=== PATIENT | male | born 1965 | race African-American/Black ===

== ENCOUNTER 2018-01-09 18:49 | Inpatient (IN) | payer OTHER ==
[2018-01-09 19:09] VITALS: BMI 29.7
[2018-01-09] MEDS ORDERED: MELATONIN 5 MG TABLETS PO PRN (22:00)
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
[2018-01-09] MEDS ORDERED: chlordiazePOXIDE HCL 25 MG CAPSULE PO PRN (23:15)
[2018-01-09] MEDS ORDERED: ACETAMINOPHEN 325 MG TABLET (FP) PO PRN (23:15)
[2018-01-09] MEDS ORDERED: LOPERAMIDE HCL 2 MG CAPSULE PO PRN (23:15)
[2018-01-09] MEDS ORDERED: MAGNESIUM HYDROX 2400MG/30ML ORAL SUSPENSION 30 ML CUP PO PRN (23:15)
[2018-01-09] MEDS ORDERED: MENTHOL/PHENOL 1 EACH UD MM PRN (23:15)
[2018-01-09] MEDS ORDERED: IBUPROFEN 400 MG TABLET (FP) PO PRN (23:15)
[2018-01-09] MEDS ORDERED: MAGNESIUM CITRATE 300 ML BOTTLE PO PRN (23:15)
[2018-01-09] MEDS ORDERED: guaiFENesin/D-METHORPHAN HB 10 ML UNIT-DOSE CUPS PO PRN (23:15)
[2018-01-09] MEDS ORDERED: MAG HYDROX/AL HYDROX/SIMETH 30 ML UNIT-DOSE CUP PO PRN (23:15)
[2018-01-09] MEDS ORDERED: P-EPHED 60MG/TRIPROLIDI 2.5MG TABLET PO PRN (23:15)
[2018-01-10] MEDS: chlordiazePOXIDE HCL 25 MG CAPSULE PO SCH ×4 (00:42→17:35)
[2018-01-10 00:48] LABS: URINE APPEARANCE CLEAR; URINE BILIRUBIN NEGATIVE (<2.0 mg/dL); URINE COLOR LTYELLOW; URINE GLUCOSE (UA) NEGATIVE (NEGATIVE); URINE KETONE NEGATIVE (NEGATIVE); URINE LEUK ESTERASE NEGATIVE (NEGATIVE); URINE NITRITE NEGATIVE (NEGATIVE); URINE PROTEIN 1+ (NEGATIVE); URINE UROBILINOGEN NEGATIVE mg/dL (0.2-1.0)
[2018-01-10 00:50] LABS: EPI CELLS RARE /HPF (FEW); URINE MUCUS RARE
--- NOTE | 2018-01-10 07:40 | CONSULT ---
[facility] Psychiatric Consult - Data Date of interview: 01/10/18 Admission source: [facility] Identifying data: This is a 52 years old male, single, domiciled, unemployed, on PA, with no psychiatric hospitalization history, history of Alcohol, Cannabis , Cocaine dependednce, reporting Alcohol withdrawal symptoms and seeking detox. Substance Abuse History: - Smoking Cessation. Smoking history: Former smoker. Have you smoked in the past 12 months: No. Aproximately how many cigarettes per day: 1. Cigars Per Day: 0. Hx Chewing Tobacco Use: No. Initiated information on smoking cessation: No. - Substances Abused. Alcohol. Route : Oral. Frequency: Daily. Amount used: LIQUOR- 2 PINTS, BEER- 2 SIX PACK. Age of first use: 18. Date of Last Use: 01/09/18 Medical History: Syncope history, PPD+ history Psychiatric History: Oatient reports history of depression, as oper computer has been on: Trazodone 50mg po qhs. Zoloft 50mg poqd. Patient refusing allen restart medications, rteports was not taking them prior to admission. Denies suicidal, homicidal history. Physical/Sexual Abuse/Trauma History: Denies Additional Comment: Observation. Detox unit care protocol Mental Status Exam - Mental Status Exam Alert and Oriented to: Place, Person Cognitive Function: Fair Patient Appearance: Well Groomed Mood: Suspicious, Anxious Affect: Mood Congruent Patient Behavior: Guarded Speech Pattern: Appropriate Voice Loudness: Mildly Soft/Quiet Thought Process: Goal Oriented Thought Disorder: Being Controlled Hallucinations: Denies Suicidal Ideation: Denies Homicidal Ideation: Denies Insight/Judgement: Fair Sleep: Difficulty falling asleep Appetite: Weight gain Muscle strength/Tone: Normal Gait/Station: Normal Additional Comments: Observation. Detox unit care protocol Psychiatric Findings - Problem List ([place] 1, 2,3) (1) Alcohol intoxication Current Visit: Yes Status: Acute Qualifiers: Complication of substance-induced condition: uncomplicated Qualified Code(s ): F10.920 - Alcohol use, unspecified with intoxication, uncomplicated (2) Alcohol dependence in controlled environment Current Visit: No Status: Acute (3) Alcohol dependence with uncomplicated withdrawal Current Visit: No Status: Acute (4) Cannabis dependence Current Visit: No Status: Acute (5) Cocaine dependence Current Visit: No Status: Acute Qualifiers: Substance use status: uncomplicated Qualified Code(s): F14.20 - Cocaine dependence, uncomplicated (6) Substance induced mood disorder Current Visit: No Status: Acute (7) Syncope Current Visit: No Status: Acute (8) Alcohol dependence Current Visit: No Status: Chronic Qualifiers: Substance use status: uncomplicated Qualified Code(s): F10.20 - Alcohol dependence, uncomplicated (9) History of positive PPD Current Visit: No Status: Chronic (10) Insomnia Current Visit: No Status: Chronic Qualifiers: Insomnia type: unspecified Qualified Code(s): G47.00 - Insomnia, unspecified - Initial Treatment Plan Initial Treatment Plan: Observation. Detox unit care protocol
[2018-01-10] MEDS ORDERED: PRENATAL VITAMINS W/ FOLIC ACID TABLET (FP) PO SCH (10:00)
--- NOTE | 2018-01-10 10:08 | PN ---
S CIWA - CIWA Score Nausea/Vomitin-Mild Nausea/No Vomiting Muscle Tremors: 3 Anxiety: 2 Agitation: 3 Paroxysmal Sweats: 1-Minimal Palms Moist Orientation: 1-Uncertain about Date Tacttile Disturbances: 1-Very Mild Itch/Numbness Auditory Disturbances: 0-None Visual Disturbances: 0-None Headache: 1-Very Mild CIWA-Ar Total Score: 13 BHS Progress Note (SOAP) Subjective: sweat tremor diarrhea trouble sleep at night anxiety restlessness Objective: 01/10/18 10:09 Vital Signs Temperature 97.9 F 01/10/18 09:20 Pulse Rate 96 H 01/10/18 09:20 Respiratory Rate 18 01/10/18 09:20 Blood Pressure 119/79 01/10/18 09:20 O2 Sat by Pulse Oximetry (%) Laboratory Last Values Urine Color Ltyellow 01/09/18 23:26 Urine Appearance Clear 01/09/18 23:26 Urine pH 5.0 (5.0-8.0) 01/09/18 23:26 Ur Specific [place] 1.017 (1.010-1.035) 01/09/18 23:26 Urine Protein 1+ (NEGATIVE) H 01/09/18 23:26 Urine Glucose (UA) Negative (NEGATIVE) 01/09/18 23:26 Urine Ketones Negative (NEGATIVE) 01/09/18 23:26 Urine Blood Negative (NEGATIVE) 01/09/18 23:26 Urine Nitrite Negative (NEGATIVE) 01/09/18 23:26 Urine Bilirubin Negative (<2.0 mg/dL) 01/09/18 23:26 Urine Urobilinogen Negative mg/dL (0.2-1.0) 01/09/18 23:26 Ur Leukocyte Esterase Negative (NEGATIVE) 01/09/18 23:26 Urine WBC (Auto) <1 /hpf (3-5) 01/09/18 23:26 Urine RBC (Auto) 2 /hpf (0-3) 01/09/18 23:26 Ur Epithelial Cells Rare /HPF (FEW) 01/09/18 23:26 Urine Mucus Rare 01/09/18 23:26 lab noted Assessment: 01/10/18 10:10 withdrawal sx diarrhea offer immodium Plan: continue detox
[2018-01-10 10:33] LABS: HEMATOCRIT 40.8 % (35.4-49); HEMOGLOBIN 13.2 GM/dL (11.7-16.9); MCH 32.6 pg (25.7-33.7); MCHC 32.4 g/dl (32.0-35.9); MEAN CELL VOLUME 100.6 fl (80-96); MEAN PLT VOLUME 9.3 fl (7.5-11.1); PLATELET COUNT 190 K/MM3 (134-434); RBC 4.06 M/mm3 (4.00-5.60); RDW 12.3 % (11.9-15.9); WHITE BLOOD COUNT 4.5 K/mm3 (4.0-10.0)
[2018-01-10 10:41] LABS: ALBUMIN 3.7 g/dl (3.4-5.0); ALK PHOS 52 U/L (45-117); ANION GAP 10 MMOL/L (8-16); BILIRUBIN,TOTAL 0.5 mg/dL (0.2-1); BLOOD UREA NITROGEN 16 mg/dL (7-18); CALCIUM 8.6 mg/dL (8.5-10.1); CHLORIDE 104 mmol/L (98-107); CO2 25 mmol/L (21-32); CREATININE 1.1 mg/dL (0.55-1.3); GLUCOSE,RANDOM 114 mg/dL (74-106); POTASSIUM 3.8 mmol/L (3.5-5.1); SGOT/AST 31 U/L (15-37); SGPT/ALT 28 U/L (13-61); SODIUM 138 mmol/L (136-145); TOT PROT 7.1 g/dl (6.4-8.2)
[2018-01-10 13:02] VITALS: BP 110/66; TEMP 98.2
[2018-01-10 15:09] VITALS: PULSE 81
--- NOTE | 2018-01-10 16:47 | DS ---
[facility] Detox Discharge Summary Admission Date: 01/09/18 Discharge Date: 01/10/18 - History Present History: Alcohol Dependence Additional Comments: C/o alcohol withdrawal symptoms. Pertinent Past History: Alcohol use disorder since age 18. - Physical Exam Results Vital Signs: Vital Signs Temperature 98.2 F 01/10/18 13:02 Pulse Rate 81 01/10/18 15:00 Respiratory Rate 18 01/10/18 13:02 Blood Pressure 110/66 01/10/18 13:02 O2 Sat by Pulse Oximetry (%) Pertinent Admission Physical Exam Findings: Admitted for alcohol detox. Presented w/ alcohol intoxication and withdrawal symptoms. Lab Results WBC 4.5 K/mm3 (4.0-10.0) 01/10/18 07:30 RBC 4.06 M/mm3 (4.00-5.60) 01/10/18 07:30 Hgb 13.2 GM/dL (11.7-16.9) 01/10/18 07:30 Hct 40.8 % (35.4-49) D 01/10/18 07:30 MCV 100.6 fl (80-96) H 01/10/18 07:30 MCHC 32.4 g/dl (32.0-35.9) 01/10/18 07:30 RDW 12.3 % (11.9-15.9) D 01/10/18 07:30 Plt Count 190 K/MM3 (134-434) D 01/10/18 07:30 Sodium 138 mmol/L (136-145) 01/10/18 07:30 Potassium 3.8 mmol/L (3.5-5.1) 01/10/18 07:30 Chloride 104 mmol/L (98-107) 01/10/18 07:30 Carbon Dioxide 25 mmol/L (21-32) 01/10/18 07:30 Anion Gap 10 MMOL/L (8-16) 01/10/18 07:30 BUN 16 mg/dL (7-18) 01/10/18 07:30 Creatinine 1.1 mg/dL (0.55-1.3) 01/10/18 07:30 Random Glucose 114 mg/dL (74-106) H 01/10/18 07:30 Calcium 8.6 mg/dL (8.5-10.1) 01/10/18 07:30 Labs reviewed. - Treatment Hospital Course: Detox Protocol Followed (Patient did not complete detox. States "I have to go". States 'I'm going to a group home'.) - Medication Discharge Medications: Ambulatory Orders Sertraline HCl [Zoloft -] 50 mg PO DAILY #30 tablet 10/21/14 traZODone HCL [Desyrel -] 50 mg PO HS #30 tablet 10/21/14 - AMA Did Patient Leave Against Medical Advice: Yes (Patient left despite encouragement to stay)
[2018-01-10] MEDS ORDERED: THIAMINE HCL 100 MG TABLET (FP) PO SCH (22:00)
[2018-01-10] MEDS ORDERED: chlordiazePOXIDE HCL 25 MG CAPSULE PO SCH (23:00)
[2018-01-11] MEDS ORDERED: chlordiazePOXIDE 5 MG CAPSULE PO SCH (23:00)
[2018-01-12] MEDS ORDERED: chlordiazePOXIDE HCL 10 MG CAPSULE PO SCH (23:00)
== END 2018-01-10 17:30 | disposition left against medical advice (07) | DRG 770 ==
LOC: YASAS 18:49 → Y6N 23:32
PROVIDERS: ADMIT Neuromusculoskeletal Medicine & OMM; ATTEND Neuromusculoskeletal Medicine & OMM
PROC: HZ2ZZZZ Detoxification Services for Substance Abuse Treatment (ICD-10-PCS; principal; 2018-01-09)
DX: F10.230 Alcohol dependence with withdrawal, uncomplicated (principal); F14.20 Cocaine dependence, uncomplicated; F12.20 Cannabis dependence, uncomplicated; F19.24 Other psychoactive substance dependence with psychoactive substance-induced mood disorder; F32.9 Major depressive disorder, single episode, unspecified; G47.00 Insomnia, unspecified; F41.9 Anxiety disorder, unspecified; Z86.79 Personal history of other diseases of the circulatory system; Z85.46 Personal history of malignant neoplasm of prostate
CPT/HCPCS: 36415; 80053; 81003; 81015; 85027; 86593

== ENCOUNTER 2018-02-27 14:04 | Inpatient (IN) | payer OTHER ==
[2018-02-27 14:42] VITALS: BMI 29.5
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
[2018-02-27] MEDS ORDERED: guaiFENesin/D-METHORPHAN HB 10 ML UNIT-DOSE CUPS PO PRN (17:28)
[2018-02-27] MEDS ORDERED: MAGNESIUM HYDROX 2400MG/30ML ORAL SUSPENSION 30 ML CUP PO PRN (17:28)
[2018-02-27] MEDS ORDERED: MENTHOL/PHENOL 1 EACH UD MM PRN (17:28)
[2018-02-27] MEDS ORDERED: IBUPROFEN 400 MG TABLET (FP) PO PRN (17:28)
[2018-02-27] MEDS ORDERED: P-EPHED 60MG/TRIPROLIDI 2.5MG TABLET PO PRN (17:28)
[2018-02-27] MEDS ORDERED: MAGNESIUM CITRATE 300 ML BOTTLE PO PRN (17:28)
[2018-02-27] MEDS ORDERED: MAG HYDROX/AL HYDROX/SIMETH 30 ML UNIT-DOSE CUP PO PRN (17:28)
[2018-02-27] MEDS ORDERED: ACETAMINOPHEN 325 MG TABLET (FP) PO PRN (17:28)
[2018-02-27] MEDS ORDERED: LOPERAMIDE HCL 2 MG CAPSULE PO PRN (17:28)
[2018-02-27] MEDS: chlordiazePOXIDE HCL 25 MG CAPSULE PO PRN (20:16)
[2018-02-27] MEDS ORDERED: MELATONIN 5 MG TABLETS PO PRN (22:00)
[2018-02-27] MEDS: chlordiazePOXIDE HCL 25 MG CAPSULE PO SCH (23:02)
[2018-02-27] MEDS: THIAMINE HCL 100 MG TABLET (FP) PO SCH (23:02)
[2018-02-27] MEDS: BACITRACIN 0.9 GM PACKET TP SCH (23:02)
[2018-02-28] MEDS: chlordiazePOXIDE HCL 25 MG CAPSULE PO SCH ×4 (05:29→22:11)
[2018-02-28] MEDS: chlordiazePOXIDE HCL 25 MG CAPSULE PO PRN (07:50)
[2018-02-28 10:21] LABS: HEMATOCRIT 41.4 % (35.4-49); HEMOGLOBIN 13.3 GM/dL (11.7-16.9); MCH 33.3 pg (25.7-33.7); MCHC 32.1 g/dl (32.0-35.9); MEAN CELL VOLUME 103.7 fl (80-96); MEAN PLT VOLUME 10.1 fl (7.5-11.1); PLATELET COUNT 156 K/MM3 (134-434); RBC 3.99 M/mm3 (4.00-5.60); RDW 13.4 % (11.9-15.9); WHITE BLOOD COUNT 3.9 K/mm3 (4.0-10.0)
[2018-02-28 10:44] LABS: ALBUMIN 3.2 g/dl (3.4-5.0); ALK PHOS 51 U/L (45-117); ANION GAP 6 MMOL/L (8-16); BILIRUBIN,TOTAL 0.9 mg/dL (0.2-1); BLOOD UREA NITROGEN 10 mg/dL (7-18); CALCIUM 8.1 mg/dL (8.5-10.1); CHLORIDE 104 mmol/L (98-107); CO2 27 mmol/L (21-32); CREATININE 0.9 mg/dL (0.55-1.3); GLUCOSE,RANDOM 116 mg/dL (74-106); POTASSIUM 3.9 mmol/L (3.5-5.1); SGOT/AST 25 U/L (15-37); SGPT/ALT 32 U/L (13-61); SODIUM 137 mmol/L (136-145); TOT PROT 6.4 g/dl (6.4-8.2)
[2018-02-28] MEDS: BACITRACIN 0.9 GM PACKET TP SCH ×2 (10:47→22:28)
[2018-02-28] MEDS: PRENATAL VITAMINS W/ FOLIC ACID TABLET (FP) PO SCH (10:47)
--- NOTE | 2018-02-28 11:03 | PN ---
S CIWA - CIWA Score Nausea/Vomitin-No Nausea/No Vomiting Muscle Tremors: 3 Anxiety: 3 Agitation: 3 Paroxysmal Sweats: 3 Orientation: 0-Oriented Tacttile Disturbances: 0-None Auditory Disturbances: 0-None Visual Disturbances: 0-None Headache: 0-None Present CIWA-Ar Total Score: 12 S Progress Note (SOAP) Subjective: sweats shakes interrupted sleep i need psych for my medication and depression Objective: 02/28/18 11:03 Vital Signs Temperature 98.1 F 02/28/18 09:29 Pulse Rate 80 02/28/18 09:29 Respiratory Rate 18 02/28/18 09:29 Blood Pressure 109/66 02/28/18 09:29 O2 Sat by Pulse Oximetry (%) Laboratory Tests 02/28/18 02/28/18 02/28/18 07:00 07:00 07:00 WBC 3.9 L RBC 3.99 L Hgb 13.3 Hct 41.4 MCV 103.7 H MCH 33.3 MCHC 32.1 RDW 13.4 Plt Count 156 MPV 10.1 Sodium 137 Potassium 3.9 Chloride 104 Carbon Dioxide 27 Anion Gap 6 L BUN 10 Creatinine 0.9 Creat Clearance w eGFR > 60 Random Glucose 116 H Calcium 8.1 L Total Bilirubin 0.9 AST 25 ALT 32 Alkaline Phosphatase 51 Total Protein 6.4 Albumin 3.2 L HIV 1&2 Antibody Screen Negative HIV P24 Antigen Negative aaox3 ambulating no acute distress Assessment: 02/28/18 11:03 withdrawal sx Plan: continue detox increase fluids psych ordered
[2018-02-28] MEDS: THIAMINE HCL 100 MG TABLET (FP) PO SCH (22:11)
[2018-03-01] MEDS: chlordiazePOXIDE HCL 25 MG CAPSULE PO SCH ×3 (06:11→17:14)
[2018-03-01] MEDS: PRENATAL VITAMINS W/ FOLIC ACID TABLET (FP) PO SCH (10:45)
[2018-03-01] MEDS: BACITRACIN 0.9 GM PACKET TP SCH ×2 (10:45→22:58)
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
[2018-03-01] MEDS: hydrOXYzine PAMOATE 50 MG CAPSULE (FP) PO PRN ×2 (11:40→17:14)
--- NOTE | 2018-03-01 14:39 | PN ---
[facility] CIWA - CIWA Score Nausea/Vomitin-No Nausea/No Vomiting Muscle Tremors: None Anxiety: 3 Agitation: 2 Paroxysmal Sweats: 3 Orientation: 0-Oriented Tacttile Disturbances: 2-Mild Itch/Numbness/Burn Auditory Disturbances: 1-Very Mild Visual Disturbances: 0-None Headache: 0-None Present CIWA-Ar Total Score: 11 BHS Progress Note (SOAP) Subjective: Interrupted Sleep, Sweating, Diarrhea, Anxious. Objective: PATIENT A & O X 3. IN NO ACUTE DISTRESS. 03/01/18 14:37 Vital Signs Temperature 98.1 F 03/01/18 13:43 Pulse Rate 81 03/01/18 13:43 Respiratory Rate 18 03/01/18 13:43 Blood Pressure 110/64 03/01/18 13:43 O2 Sat by Pulse Oximetry (%) Laboratory Tests 02/28/18 02/28/18 02/28/18 07:00 07:00 07:00 WBC 3.9 L RBC 3.99 L Hgb 13.3 Hct 41.4 MCV 103.7 H MCH 33.3 MCHC 32.1 RDW 13.4 Plt Count 156 MPV 10.1 Sodium 137 Potassium 3.9 Chloride 104 Carbon Dioxide 27 Anion Gap 6 L BUN 10 Creatinine 0.9 Creat Clearance w eGFR > 60 Random Glucose 116 H Calcium 8.1 L Total Bilirubin 0.9 AST 25 ALT 32 Alkaline Phosphatase 51 Total Protein 6.4 Albumin 3.2 L RPR Titer Nonreactive Hep C Ab Diagnostic HIV 1&2 Antibody Screen HIV P24 Antigen 02/28/18 02/28/18 07:00 07:00 WBC RBC Hgb Hct MCV MCH MCHC RDW Plt Count MPV Sodium Potassium Chloride Carbon Dioxide Anion Gap BUN Creatinine Creat Clearance w eGFR Random Glucose Calcium Total Bilirubin AST ALT Alkaline Phosphatase Total Protein Albumin RPR Titer Hep C Ab Diagnostic <0.1 HIV 1&2 Antibody Screen Negative HIV P24 Antigen Negative LABS NOTED. Assessment: 03/01/18 14:37 WITHDRAWAL SYMPTOMS. Plan: CONTINUE DETOX. INCREASE DAILY PO FLUID INTAKE. PRN IMMODIUM FOR DIARRHEA.
[2018-03-01] MEDS ORDERED: MELATONIN 5 MG TABLETS PO PRN (22:00)
[2018-03-01] MEDS: chlordiazePOXIDE 5 MG CAPSULE PO SCH (22:58)
[2018-03-01] MEDS: THIAMINE HCL 100 MG TABLET (FP) PO SCH (22:58)
[2018-03-02] MEDS: hydrOXYzine PAMOATE 50 MG CAPSULE (FP) PO PRN ×4 (00:22→22:43)
[2018-03-02] MEDS: chlordiazePOXIDE 5 MG CAPSULE PO SCH ×3 (06:55→17:38)
[2018-03-02] MEDS: PRENATAL VITAMINS W/ FOLIC ACID TABLET (FP) PO SCH (10:44)
[2018-03-02] MEDS: BACITRACIN 0.9 GM PACKET TP SCH ×2 (10:45→22:44)
--- NOTE | 2018-03-02 13:51 | PN ---
BHS Progress Note (SOAP) Subjective: Pt continuing with alcohol detox -does not know if he wants to go to rehab O: Vital Signs - 24 hr 03/01/18 03/01/18 03/02/18 17:30 22:07 03:30 Temperature 97.9 F 98.1 F Pulse Rate 66 73 Respiratory 18 18 18 Rate Blood Pressure 125/73 122/72 03/02/18 03/02/18 03/02/18 06:46 09:27 13:30 Temperature 97.5 F L 97.7 F 98.2 F Pulse Rate 62 74 75 Respiratory 18 18 18 Rate Blood Pressure 93/56 L 112/56 L 105/56 L Laboratory Tests 02/28/18 02/28/18 02/28/18 07:00 07:00 07:00 WBC 3.9 L RBC 3.99 L Hgb 13.3 Hct 41.4 MCV 103.7 H MCH 33.3 MCHC 32.1 RDW 13.4 Plt Count 156 MPV 10.1 Sodium 137 Potassium 3.9 Chloride 104 Carbon Dioxide 27 Anion Gap 6 L BUN 10 Creatinine 0.9 Creat Clearance w eGFR > 60 Random Glucose 116 H Calcium 8.1 L Total Bilirubin 0.9 AST 25 ALT 32 Alkaline Phosphatase 51 Total Protein 6.4 Albumin 3.2 L RPR Titer Nonreactive Hep C Ab Diagnostic HIV 1&2 Antibody Screen HIV P24 Antigen 02/28/18 02/28/18 07:00 07:00 WBC RBC Hgb Hct MCV MCH MCHC RDW Plt Count MPV Sodium Potassium Chloride Carbon Dioxide Anion Gap BUN Creatinine Creat Clearance w eGFR Random Glucose Calcium Total Bilirubin AST ALT Alkaline Phosphatase Total Protein Albumin RPR Titer Hep C Ab Diagnostic <0.1 HIV 1&2 Antibody Screen Negative HIV P24 Antigen Negative a/p: continue alcohol detox protocol: pt doing well
[2018-03-02] MEDS: THIAMINE HCL 100 MG TABLET (FP) PO SCH (22:43)
[2018-03-02] MEDS: chlordiazePOXIDE HCL 10 MG CAPSULE PO SCH (22:43)
[2018-03-03] MEDS: chlordiazePOXIDE HCL 10 MG CAPSULE PO SCH ×2 (07:01→10:40)
[2018-03-03] MEDS: hydrOXYzine PAMOATE 50 MG CAPSULE (FP) PO PRN ×2 (07:08→13:59)
[2018-03-03] MEDS: BACITRACIN 0.9 GM PACKET TP SCH (10:40)
[2018-03-03] MEDS: PRENATAL VITAMINS W/ FOLIC ACID TABLET (FP) PO SCH (10:40)
--- NOTE | 2018-03-03 17:03 | PN ---
BHS Progress Note (SOAP) Subjective: sweats sleep disturbance aches/pains Objective: 03/03/18 17:02 in bed A & O x 3 Vital Signs Temperature 97.9 F 03/03/18 13:51 Pulse Rate 87 03/03/18 13:51 Respiratory Rate 18 03/03/18 13:51 Blood Pressure 107/73 03/03/18 13:51 O2 Sat by Pulse Oximetry (%) Assessment: 03/03/18 17:02 withdrawal sx Plan: for d/c in a.m
[2018-03-03 17:07] VITALS: BP 117/71; PULSE 74; TEMP 98.2
== END 2018-03-03 17:33 | disposition left against medical advice (07) | DRG 770 ==
LOC: YASAS 14:04 → Y6N 18:10
PROC: HZ2ZZZZ Detoxification Services for Substance Abuse Treatment (ICD-10-PCS; principal; 2018-02-27)
DX: F10.230 Alcohol dependence with withdrawal, uncomplicated (principal); F19.24 Other psychoactive substance dependence with psychoactive substance-induced mood disorder; F41.9 Anxiety disorder, unspecified; G47.00 Insomnia, unspecified; R76.11 Nonspecific reaction to tuberculin skin test without active tuberculosis; S00.212 Abrasion of left eyelid and periocular area; Z85.46 Personal history of malignant neoplasm of prostate; Z87.891 Personal history of nicotine dependence; Y04.0XXA Assault by unarmed brawl or fight, initial encounter; Y93.89 Activity, other specified; Y92.89 Other specified places as the place of occurrence of the external cause; Y99.8 Other external cause status
CPT/HCPCS: 36415; 80053; 85027; 86593; 86803; 87389

== ENCOUNTER 2018-04-01 14:14 | Inpatient (IN) | payer OTHER ==
[2018-04-01 14:48] VITALS: BMI 29.8
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
[2018-04-01] MEDS ORDERED: MENTHOL/PHENOL 1 EACH UD MM PRN (20:25)
[2018-04-01] MEDS ORDERED: MAGNESIUM HYDROX 2400MG/30ML ORAL SUSPENSION 30 ML CUP PO PRN (20:25)
[2018-04-01] MEDS ORDERED: P-EPHED 60MG/TRIPROLIDI 2.5MG TABLET PO PRN (20:25)
[2018-04-01] MEDS ORDERED: LOPERAMIDE HCL 2 MG CAPSULE PO PRN (20:25)
[2018-04-01] MEDS ORDERED: chlordiazePOXIDE HCL 25 MG CAPSULE PO ONE (20:25)
[2018-04-01] MEDS ORDERED: chlordiazePOXIDE HCL 25 MG CAPSULE PO PRN (20:25)
[2018-04-01] MEDS ORDERED: IBUPROFEN 400 MG TABLET (FP) PO PRN (20:25)
[2018-04-01] MEDS ORDERED: ACETAMINOPHEN 325 MG TABLET (FP) PO PRN (20:25)
[2018-04-01] MEDS ORDERED: MAGNESIUM CITRATE 300 ML BOTTLE PO PRN (20:25)
[2018-04-01] MEDS ORDERED: hydrOXYzine PAMOATE 50 MG CAPSULE (FP) PO PRN (20:25)
[2018-04-01] MEDS ORDERED: MAG HYDROX/AL HYDROX/SIMETH 30 ML UNIT-DOSE CUP PO PRN (20:25)
[2018-04-01] MEDS ORDERED: guaiFENesin/D-METHORPHAN HB 10 ML UNIT-DOSE CUPS PO PRN (20:25)
[2018-04-01] MEDS ORDERED: NICOTINE POLACRILEX 2 MG GUM BC PRN (20:25)
[2018-04-01 21:37] VITALS: BP 134/87; PULSE 98; TEMP 98.8
[2018-04-01] MEDS ORDERED: MELATONIN 5 MG TABLETS PO PRN (22:00)
[2018-04-01] MEDS ORDERED: THIAMINE HCL 100 MG TABLET (FP) PO SCH (22:00)
[2018-04-01] MEDS ORDERED: chlordiazePOXIDE HCL 25 MG CAPSULE PO SCH (23:00)
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
[2018-04-02] MEDS ORDERED: PRENATAL VITAMINS W/ FOLIC ACID TABLET (FP) PO SCH (10:00)
[2018-04-02] MEDS ORDERED: chlordiazePOXIDE HCL 25 MG CAPSULE PO SCH (23:00)
[2018-04-03] MEDS ORDERED: chlordiazePOXIDE 5 MG CAPSULE PO SCH (23:00)
[2018-04-04] MEDS ORDERED: chlordiazePOXIDE HCL 10 MG CAPSULE PO SCH (23:00)
== END 2018-04-02 05:03 | disposition left against medical advice (07) | DRG 770 ==
LOC: YASAS 14:14 → Y3N 19:26
PROVIDERS: ADMIT Surgery; ATTEND Surgery
PROC: HZ2ZZZZ Detoxification Services for Substance Abuse Treatment (ICD-10-PCS; principal; 2018-04-01)
DX: F10.230 Alcohol dependence with withdrawal, uncomplicated (principal); F14.20 Cocaine dependence, uncomplicated; F41.9 Anxiety disorder, unspecified; F32.9 Major depressive disorder, single episode, unspecified; Z85.46 Personal history of malignant neoplasm of prostate; R60.9 Edema, unspecified; Z87.891 Personal history of nicotine dependence; E66.9 Obesity, unspecified; Z68.29 Body mass index [BMI] 29.0-29.9, adult

== ENCOUNTER 2018-04-30 09:45 | Inpatient (IN) | payer OTHER ==
[2018-04-30 09:57] VITALS: BMI 29.8
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
[2018-04-30] MEDS ORDERED: BISMUTH SUBSALICYLATE 524 MG/30 ML UD PO PRN (11:23)
[2018-04-30] MEDS ORDERED: METHOCARBAMOL 500 MG TABLET PO PRN (11:23)
[2018-04-30] MEDS ORDERED: IBUPROFEN 400 MG TABLET (FP) PO PRN (11:23)
[2018-04-30] MEDS ORDERED: MAGNESIUM CITRATE 300 ML BOTTLE PO PRN (11:23)
[2018-04-30] MEDS ORDERED: MENTHOL/PHENOL 1 EACH UD MM PRN (11:23)
[2018-04-30] MEDS ORDERED: hydrOXYzine PAMOATE 25 MG CAPSULE (FP) PO PRN (11:23)
[2018-04-30] MEDS ORDERED: MAGNESIUM HYDROX 2400MG/30ML ORAL SUSPENSION 30 ML CUP PO PRN (11:23)
[2018-04-30] MEDS ORDERED: MAG HYDROX/AL HYDROX/SIMETH 30 ML UNIT-DOSE CUP PO PRN (11:23)
[2018-04-30] MEDS ORDERED: chlordiazePOXIDE HCL 10 MG CAPSULE PO PRN (11:23)
[2018-04-30] MEDS ORDERED: ACETAMINOPHEN 325 MG TABLET (FP) PO PRN ×2 (11:23)
[2018-04-30] MEDS: chlordiazePOXIDE HCL 25 MG CAPSULE PO SCH ×2 (13:47→22:04)
[2018-04-30] MEDS: THIAMINE HCL 100 MG TABLET (FP) PO SCH (22:05)
[2018-04-30] MEDS: MELATONIN 5 MG TABLETS PO PRN (22:05)
[2018-05-01] MEDS: chlordiazePOXIDE HCL 25 MG CAPSULE PO SCH (05:40)
[2018-05-01 10:19] LABS: HEMATOCRIT 41.8 % (35.4-49); HEMOGLOBIN 14.4 GM/dL (11.7-16.9); MCH 34.3 pg (25.7-33.7); MCHC 34.5 g/dl (32.0-35.9); MEAN CELL VOLUME 99.3 fl (80-96); MEAN PLT VOLUME 9.7 fl (7.5-11.1); PLATELET COUNT 257 K/MM3 (134-434); RBC 4.21 M/mm3 (4.00-5.60); RDW 12.4 % (11.9-15.9); WHITE BLOOD COUNT 6.7 K/mm3 (4.0-10.0)
[2018-05-01 10:36] LABS: ALBUMIN 4.6 g/dl (3.4-5.0); ALK PHOS 59 U/L (45-117); ANION GAP 7 MMOL/L (8-16); BILIRUBIN,TOTAL 0.6 mg/dL (0.2-1); BLOOD UREA NITROGEN 14 mg/dL (7-18); CALCIUM 8.8 mg/dL (8.5-10.1); CHLORIDE 100 mmol/L (98-107); CO2 27 mmol/L (21-32); CREATININE 1.1 mg/dL (0.55-1.3); GLUCOSE,RANDOM 92 mg/dL (74-106); POTASSIUM 4.1 mmol/L (3.5-5.1); SGOT/AST 43 U/L (15-37); SGPT/ALT 45 U/L (13-61); SODIUM 134 mmol/L (136-145); TOT PROT 8.6 g/dl (6.4-8.2)
[2018-05-01] MEDS: PRENATAL VITAMINS W/ FOLIC ACID TABLET (FP) PO SCH (11:24)
--- NOTE | 2018-05-01 12:47 | PN ---
[facility] CIWA - CIWA Score Nausea/Vomitin-No Nausea/No Vomiting Muscle Tremors: 3 Anxiety: 3 Agitation: 3 Paroxysmal Sweats: 3 Orientation: 0-Oriented Tacttile Disturbances: 0-None Auditory Disturbances: 0-None Visual Disturbances: 0-None Headache: 1-Very Mild CIWA-Ar Total Score: 13 S Progress Note (SOAP) Subjective: headache sweats body aches interrupted sleep tired Objective: 05/01/18 12:46 Vital Signs Temperature 98.1 F 05/01/18 09:11 Pulse Rate 71 05/01/18 09:11 Respiratory Rate 18 05/01/18 09:11 Blood Pressure 124/75 05/01/18 09:11 O2 Sat by Pulse Oximetry (%) Laboratory Tests 05/01/18 05/01/18 06:00 06:00 WBC 6.7 RBC 4.21 Hgb 14.4 Hct 41.8 MCV 99.3 H MCH 34.3 H MCHC 34.5 RDW 12.4 Plt Count 257 D MPV 9.7 Sodium 134 L Potassium 4.1 Chloride 100 Carbon Dioxide 27 Anion Gap 7 L BUN 14 Creatinine 1.1 Creat Clearance w eGFR > 60 Random Glucose 92 Calcium 8.8 Total Bilirubin 0.6 AST 43 H ALT 45 Alkaline Phosphatase 59 Total Protein 8.6 H Albumin 4.6 labs noted aaox3 lying down no acute distress Assessment: 05/01/18 12:47 withdrawal sx Plan: continue detox increase fluids
[2018-05-01] MEDS: chlordiazePOXIDE 5 MG CAPSULE PO SCH ×2 (13:13→21:46)
[2018-05-01] MEDS: MELATONIN 5 MG TABLETS PO PRN (21:46)
[2018-05-01] MEDS: THIAMINE HCL 100 MG TABLET (FP) PO SCH (21:46)
[2018-05-02] MEDS: chlordiazePOXIDE 5 MG CAPSULE PO SCH (05:35)
[2018-05-02] MEDS: PRENATAL VITAMINS W/ FOLIC ACID TABLET (FP) PO SCH (10:11)
[2018-05-02] MEDS ORDERED: chlordiazePOXIDE HCL 10 MG CAPSULE PO PRN (13:00)
--- NOTE | 2018-05-02 14:19 | PN ---
S CIWA - CIWA Score Nausea/Vomitin-No Nausea/No Vomiting Muscle Tremors: 2 Anxiety: 1-Mildly Anxious Agitation: 2 Paroxysmal Sweats: No Perspiration Orientation: 0-Oriented Tacttile Disturbances: 0-None Auditory Disturbances: 0-None Visual Disturbances: 0-None Headache: 0-None Present CIWA-Ar Total Score: 5 BHS Progress Note (SOAP) Subjective: tired Objective: 05/02/18 14:18 Vital Signs Temperature 98.8 F 05/02/18 14:12 Pulse Rate 68 05/02/18 14:12 Respiratory Rate 18 05/02/18 14:12 Blood Pressure 116/82 05/02/18 14:12 O2 Sat by Pulse Oximetry (%) Laboratory Tests 04/30/18 05/01/18 05/01/18 12:35 06:00 06:00 WBC 6.7 RBC 4.21 Hgb 14.4 Hct 41.8 MCV 99.3 H MCH 34.3 H MCHC 34.5 RDW 12.4 Plt Count 257 D MPV 9.7 Sodium 134 L Potassium 4.1 Chloride 100 Carbon Dioxide 27 Anion Gap 7 L BUN 14 Creatinine 1.1 Creat Clearance w eGFR > 60 Random Glucose 92 Calcium 8.8 Total Bilirubin 0.6 AST 43 H ALT 45 Alkaline Phosphatase 59 Total Protein 8.6 H Albumin 4.6 RPR Titer HIV 1&2 Antibody Screen Negative HIV P24 Antigen Negative 05/01/18 06:00 WBC RBC Hgb Hct MCV MCH MCHC RDW Plt Count MPV Sodium Potassium Chloride Carbon Dioxide Anion Gap BUN Creatinine Creat Clearance w eGFR Random Glucose Calcium Total Bilirubin AST ALT Alkaline Phosphatase Total Protein Albumin RPR Titer Nonreactive HIV 1&2 Antibody Screen HIV P24 Antigen aaox3 ambulating no acute distress Assessment: 05/02/18 14:18 mild to no s/s withdrawals noted Plan: continue detox increase fluids d/c in am
[2018-05-02] MEDS: chlordiazePOXIDE HCL 10 MG CAPSULE PO SCH ×2 (14:34→22:08)
[2018-05-02] MEDS: THIAMINE HCL 100 MG TABLET (FP) PO SCH (22:09)
[2018-05-02] MEDS: MELATONIN 5 MG TABLETS PO PRN (22:09)
[2018-05-03 08:21] VITALS: TEMP 97.7
--- NOTE | 2018-05-03 09:22 | DS ---
[facility] Detox Discharge Summary Admission Date: 04/30/18 Discharge Date: 05/03/18 - History Present History: Alcohol Dependence, Cannabis Dependence, Cocaine Dependence - Physical Exam Results Vital Signs: Vital Signs Temperature 97.7 F 05/03/18 08:20 Pulse Rate 74 05/03/18 08:20 Respiratory Rate 18 05/03/18 08:20 Blood Pressure 110/75 05/03/18 08:20 O2 Sat by Pulse Oximetry (%) - Treatment Hospital Course: Detox Protocol Followed, Detoxed Safely, Responded well, Discharged Condition Good, Rehab Referral Accepted - Medication Discharge Medications: Ambulatory Orders NK [No Known Home Medication] 04/01/18 - Diagnosis (1) Abrasion of left eyebrow Current Visit: Yes Status: Chronic Qualifiers: Encounter type: sequela Qualified Code(s): S00.212S - Abrasion of left eyelid and periocular area, sequela (2) Alcohol dependence in controlled environment Current Visit: Yes Status: Chronic (3) Cannabis dependence Current Visit: Yes Status: Chronic (4) Insomnia Current Visit: No Status: Acute Qualifiers: Insomnia type: unspecified Qualified Code(s): G47.00 - Insomnia, unspecified (5) Substance induced mood disorder Current Visit: No Status: Acute (6) Alcohol dependence with uncomplicated withdrawal Current Visit: Yes Status: Chronic (7) Anxiety and depression Current Visit: No Status: Chronic (8) Cocaine dependence Current Visit: Yes Status: Chronic Qualifiers: Substance use status: uncomplicated Qualified Code(s): F14.20 - Cocaine dependence, uncomplicated (9) History of positive PPD Current Visit: No Status: Chronic (10) Depression Current Visit: No Status: Suspected Qualifiers: Depression Type: unspecified Qualified Code(s): F32.9 - Major depressive disorder, single episode, unspecified (11) Depressive disorder Current Visit: No Status: Suspected - AMA Did Patient Leave Against Medical Advice: No (referred to [facility])
[2018-05-03 09:42] VITALS: BP 143/70; PULSE 70
== END 2018-05-03 13:22 | disposition home or self-care (01) | DRG 774 ==
LOC: YASAS 09:45 → Y6N 11:55
PROVIDERS: ADMIT Surgery; ATTEND Surgery
PROC: HZ2ZZZZ Detoxification Services for Substance Abuse Treatment (ICD-10-PCS; principal; 2018-04-30)
DX: F10.230 Alcohol dependence with withdrawal, uncomplicated (principal); F14.20 Cocaine dependence, uncomplicated; F12.20 Cannabis dependence, uncomplicated; F41.9 Anxiety disorder, unspecified; F32.9 Major depressive disorder, single episode, unspecified; G47.00 Insomnia, unspecified; R76.11 Nonspecific reaction to tuberculin skin test without active tuberculosis
CPT/HCPCS: 36415; 80053; 85027; 86593; 87389

== ENCOUNTER 2018-06-09 14:05 | Inpatient (IN) | payer OTHER ==
[2018-06-09 15:49] VITALS: BMI 28.8
[2018-06-09] MEDS ORDERED: BISMUTH SUBSALICYLATE 524 MG/30 ML UD PO PRN (16:28)
[2018-06-09] MEDS ORDERED: MAG HYDROX/AL HYDROX/SIMETH 30 ML UNIT-DOSE CUP PO PRN (16:28)
[2018-06-09] MEDS ORDERED: IBUPROFEN 400 MG TABLET (FP) PO PRN (16:28)
[2018-06-09] MEDS ORDERED: MAGNESIUM HYDROX 2400MG/30ML ORAL SUSPENSION 30 ML CUP PO PRN (16:28)
[2018-06-09] MEDS ORDERED: MAGNESIUM CITRATE 300 ML BOTTLE PO PRN (16:28)
[2018-06-09] MEDS ORDERED: ACETAMINOPHEN 325 MG TABLET (FP) PO PRN (16:28)
[2018-06-09] MEDS ORDERED: chlordiazePOXIDE HCL 10 MG CAPSULE PO PRN (16:28)
[2018-06-09] MEDS ORDERED: METHOCARBAMOL 500 MG TABLET PO PRN (16:28)
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
[2018-06-09] MEDS ORDERED: chlordiazePOXIDE HCL 25 MG CAPSULE PO ONE (17:00)
[2018-06-09] MEDS: hydrOXYzine PAMOATE 50 MG CAPSULE (FP) PO PRN (21:01)
[2018-06-09] MEDS: chlordiazePOXIDE HCL 25 MG CAPSULE PO SCH (21:01)
[2018-06-09] MEDS: THIAMINE HCL 100 MG TABLET (FP) PO SCH (21:01)
[2018-06-10] MEDS: MELATONIN 5 MG TABLETS PO PRN ×2 (00:55→22:07)
[2018-06-10] MEDS: chlordiazePOXIDE HCL 25 MG CAPSULE PO SCH ×2 (05:26→14:31)
[2018-06-10] MEDS: PRENATAL VITAMINS W/ FOLIC ACID TABLET (FP) PO SCH (10:19)
[2018-06-10 10:23] LABS: ALBUMIN 3.5 g/dl (3.4-5.0); ALK PHOS 56 U/L (45-117); ANION GAP 6 MMOL/L (8-16); BILIRUBIN,TOTAL 0.5 mg/dL (0.2-1); BLOOD UREA NITROGEN 11 mg/dL (7-18); CALCIUM 8.2 mg/dL (8.5-10.1); CHLORIDE 104 mmol/L (98-107); CO2 27 mmol/L (21-32); CREATININE 0.8 mg/dL (0.55-1.3); GLUCOSE,RANDOM 79 mg/dL (74-106); POTASSIUM 3.6 mmol/L (3.5-5.1); SGOT/AST 100 U/L (15-37); SGPT/ALT 107 U/L (13-61); SODIUM 137 mmol/L (136-145)
[2018-06-10 10:33] LABS: HEMATOCRIT 37.4 % (35.4-49); HEMOGLOBIN 12.6 GM/dL (11.7-16.9); MCH 34.4 pg (25.7-33.7); MCHC 33.8 g/dl (32.0-35.9); MEAN CELL VOLUME 101.8 fl (80-96); MEAN PLT VOLUME 9.9 fl (7.5-11.1); PLATELET COUNT 133 K/MM3 (134-434); RBC 3.67 M/mm3 (4.00-5.60); RDW 14.1 % (11.9-15.9); WHITE BLOOD COUNT 3.2 K/mm3 (4.0-10.0)
--- NOTE | 2018-06-10 12:00 | PN ---
S CIWA - CIWA Score Nausea/Vomitin-Mild Nausea/No Vomiting Muscle Tremors: 3 Anxiety: 3 Agitation: 2 Paroxysmal Sweats: 1-Minimal Palms Moist Orientation: 2-Disoriented Date<2 days Tacttile Disturbances: 0-None Auditory Disturbances: 0-None Visual Disturbances: 0-None Headache: 1-Very Mild CIWA-Ar Total Score: 13 BHS Progress Note (SOAP) Subjective: social with peers in day room feeling ok from detox regimen Objective: 06/10/18 12:01 Vital Signs Temperature 96.9 F L 06/10/18 09:21 Pulse Rate 88 06/10/18 10:00 Respiratory Rate 18 06/10/18 10:00 Blood Pressure 128/60 06/10/18 09:21 O2 Sat by Pulse Oximetry (%) Laboratory Last Values WBC 3.2 K/mm3 (4.0-10.0) L 06/10/18 07:40 RBC 3.67 M/mm3 (4.00-5.60) L 06/10/18 07:40 Hgb 12.6 GM/dL (11.7-16.9) 06/10/18 07:40 Hct 37.4 % (35.4-49) 06/10/18 07:40 MCV 101.8 fl (80-96) H 06/10/18 07:40 MCH 34.4 pg (25.7-33.7) H 06/10/18 07:40 MCHC 33.8 g/dl (32.0-35.9) 06/10/18 07:40 RDW 14.1 % (11.9-15.9) D 06/10/18 07:40 Plt Count 133 K/MM3 (134-434) L D 06/10/18 07:40 MPV 9.9 fl (7.5-11.1) 06/10/18 07:40 Sodium 137 mmol/L (136-145) 06/10/18 07:40 Potassium 3.6 mmol/L (3.5-5.1) 06/10/18 07:40 Chloride 104 mmol/L (98-107) 06/10/18 07:40 Carbon Dioxide 27 mmol/L (21-32) 06/10/18 07:40 Anion Gap 6 MMOL/L (8-16) L 06/10/18 07:40 BUN 11 mg/dL (7-18) 06/10/18 07:40 Creatinine 0.8 mg/dL (0.55-1.3) 06/10/18 07:40 Creat Clearance w eGFR 101.92 (>60) 06/10/18 07:40 Random Glucose 79 mg/dL (74-106) 06/10/18 07:40 Calcium 8.2 mg/dL (8.5-10.1) L 06/10/18 07:40 Total Bilirubin 0.5 mg/dL (0.2-1) 06/10/18 07:40 AST 100 U/L (15-37) H 06/10/18 07:40 ALT 107 U/L (13-61) H 06/10/18 07:40 Alkaline Phosphatase 56 U/L (45-117) 06/10/18 07:40 Total Protein 7.0 g/dl (6.4-8.2) 06/10/18 07:40 Albumin 3.5 g/dl (3.4-5.0) 06/10/18 07:40 RPR Titer Nonreactive (NONREACTIVE) 06/10/18 07:40 lab noted repeat ast 06/10/18 12:02 Assessment: 06/10/18 12:03 withdrawal sx Plan: continue detox
[2018-06-10] MEDS: hydrOXYzine PAMOATE 50 MG CAPSULE (FP) PO PRN (16:49)
[2018-06-10] MEDS: THIAMINE HCL 100 MG TABLET (FP) PO SCH (22:04)
[2018-06-10] MEDS: chlordiazePOXIDE 5 MG CAPSULE PO SCH (22:04)
[2018-06-10] MEDS: P-EPHED 60MG/TRIPROLIDI 2.5MG TABLET PO PRN (22:05)
[2018-06-10] MEDS: MENTHOL/PHENOL 1 EACH UD MM PRN (22:05)
[2018-06-11] MEDS: hydrOXYzine PAMOATE 50 MG CAPSULE (FP) PO PRN ×2 (04:45→18:58)
[2018-06-11] MEDS: chlordiazePOXIDE 5 MG CAPSULE PO SCH ×2 (04:46→14:05)
[2018-06-11] MEDS: P-EPHED 60MG/TRIPROLIDI 2.5MG TABLET PO PRN ×3 (04:46→20:11)
[2018-06-11] MEDS: MENTHOL/PHENOL 1 EACH UD MM PRN (08:54)
[2018-06-11 09:57] LABS: SGOT/AST 56 U/L (15-37); SGPT/ALT 80 U/L (13-61)
[2018-06-11] MEDS: PRENATAL VITAMINS W/ FOLIC ACID TABLET (FP) PO SCH (10:28)
--- NOTE | 2018-06-11 15:32 | PN ---
[facility] CIWA - CIWA Score Nausea/Vomitin-No Nausea/No Vomiting Muscle Tremors: 3 Anxiety: 3 Agitation: 0-Normal Activity Paroxysmal Sweats: 2 Orientation: 0-Oriented Tacttile Disturbances: 0-None Auditory Disturbances: 0-None Visual Disturbances: 2-Mild Sensitivity Headache: 0-None Present CIWA-Ar Total Score: 10 [facility] Progress Note (SOAP) Subjective: Fatigue, Diarrhea, Sweating. Objective: PATIENT A & O X 3, OBSERVED AMBULATING ON UNIT UNASSISTED. IN NO ACUTE DISTRESS. 06/11/18 15:28 Vital Signs Temperature 98.6 F 06/11/18 13:37 Pulse Rate 77 06/11/18 13:37 Respiratory Rate 20 06/11/18 13:37 Blood Pressure 124/83 06/11/18 13:37 O2 Sat by Pulse Oximetry (%) Laboratory Tests 06/10/18 06/10/18 06/10/18 07:40 07:40 07:40 WBC 3.2 L RBC 3.67 L Hgb 12.6 Hct 37.4 MCV 101.8 H MCH 34.4 H MCHC 33.8 RDW 14.1 D Plt Count 133 L D MPV 9.9 Sodium 137 Potassium 3.6 Chloride 104 Carbon Dioxide 27 Anion Gap 6 L BUN 11 Creatinine 0.8 Creat Clearance w eGFR 101.92 Random Glucose 79 Calcium 8.2 L Total Bilirubin 0.5 AST 100 H ALT 107 H Alkaline Phosphatase 56 Total Protein 7.0 Albumin 3.5 RPR Titer Nonreactive 06/11/18 07:45 WBC RBC Hgb Hct MCV MCH MCHC RDW Plt Count MPV Sodium Potassium Chloride Carbon Dioxide Anion Gap BUN Creatinine Creat Clearance w eGFR Random Glucose Calcium Total Bilirubin AST 56 H ALT 80 H Alkaline Phosphatase Total Protein Albumin RPR Titer LABS NOTED. RESULTS OF REPEAT AST AND ALT LEVELS NOTED. REDUCTION NOTED ON BOTH REPEAT LEVELS. PATIENT HAS HAD LOW WBC LEVELS ON [id number] ADMISSIONS. 06/11/18 15:30 Assessment: 06/11/18 15:31 WITHDRAWAL SYMPTOMS. ELEVATED LIVER ENZYMES. LEUKOPENIA. THROMBOCYTOPENIA. 06/11/18 15:31 Plan: CONTINUE DETOX. INCREASE DAILY PO FLUID INTAKE. PRN PEPTO-BISMOL PO FOR DIARRHEA.
[2018-06-11] MEDS: guaiFENesin 200 MG/10 ML 10 ML UNIT-DOSE CUPS PO PRN (20:09)
[2018-06-11] MEDS ORDERED: chlordiazePOXIDE HCL 10 MG CAPSULE PO PRN (21:00)
[2018-06-11] MEDS: chlordiazePOXIDE HCL 10 MG CAPSULE PO SCH (22:06)
[2018-06-11] MEDS: THIAMINE HCL 100 MG TABLET (FP) PO SCH (22:06)
[2018-06-11] MEDS: MELATONIN 5 MG TABLETS PO PRN (22:06)
[2018-06-12] MEDS: chlordiazePOXIDE HCL 10 MG CAPSULE PO SCH ×3 (05:23→22:11)
[2018-06-12] MEDS: guaiFENesin 200 MG/10 ML 10 ML UNIT-DOSE CUPS PO PRN ×3 (05:23→22:11)
[2018-06-12] MEDS: PRENATAL VITAMINS W/ FOLIC ACID TABLET (FP) PO SCH (10:33)
[2018-06-12] MEDS: P-EPHED 60MG/TRIPROLIDI 2.5MG TABLET PO PRN ×2 (10:35→17:14)
--- NOTE | 2018-06-12 15:12 | PN ---
[facility] CIWA - CIWA Score Nausea/Vomitin-No Nausea/No Vomiting Muscle Tremors: None Anxiety: 4-Mod. Anxious/Guarded Agitation: 1-Slight > Activity Paroxysmal Sweats: 3 Orientation: 0-Oriented Tacttile Disturbances: 1-Very Mild Itch/Numbness Auditory Disturbances: 0-None Visual Disturbances: 0-None Headache: 0-None Present CIWA-Ar Total Score: 9 S Progress Note (SOAP) Subjective: Anxious, Fatigue, Diarrhea, Sweating. Objective: PATIENT A & O X 3, OBSERVED AMBULATING ON UNIT UNASSISTED. IN NO ACUTE DISTRESS. 06/12/18 15:13 Vital Signs Temperature 98.8 F 06/12/18 13:08 Pulse Rate 78 06/12/18 13:08 Respiratory Rate 20 06/12/18 13:08 Blood Pressure 123/74 06/12/18 13:08 O2 Sat by Pulse Oximetry (%) Laboratory Tests 06/10/18 06/10/18 06/10/18 07:40 07:40 07:40 WBC 3.2 L RBC 3.67 L Hgb 12.6 Hct 37.4 MCV 101.8 H MCH 34.4 H MCHC 33.8 RDW 14.1 D Plt Count 133 L D MPV 9.9 Sodium 137 Potassium 3.6 Chloride 104 Carbon Dioxide 27 Anion Gap 6 L BUN 11 Creatinine 0.8 Creat Clearance w eGFR 101.92 Random Glucose 79 Calcium 8.2 L Total Bilirubin 0.5 AST 100 H ALT 107 H Alkaline Phosphatase 56 Total Protein 7.0 Albumin 3.5 RPR Titer Nonreactive 06/11/18 07:45 WBC RBC Hgb Hct MCV MCH MCHC RDW Plt Count MPV Sodium Potassium Chloride Carbon Dioxide Anion Gap BUN Creatinine Creat Clearance w eGFR Random Glucose Calcium Total Bilirubin AST 56 H ALT 80 H Alkaline Phosphatase Total Protein Albumin RPR Titer LABS NOTED. Assessment: 06/12/18 15:13 WITHDRAWAL SYMPTOMS. LEUKOPENIA. THROMBOCYTOPENIA. ELEVATED LIVER ENZYMES. 06/12/18 15:14 Plan: CONTINUE DETOX. PATIENT SCHEDULED FOR D/C TOMORROW. PATIENT ADVISED TO FOLLOW-UP WITH DISH ROOM WORKER AFTER DISCHARGE FROM DETOX UNIT FOR LOW WBC AND PLATELET LEVELS AND FOR ELEVATED LIVER ENZYME LEVELS NOTED WHILE ADMITTED FOR DETOX. PATIENT VERBALIZED UNDERSTANDING OF ALL RECOMMENDATIONS PRESENTED TO HIM. COPIES OF RESULTS OF ALL LABS DRAWN WHILE ADMITTED FOR DETOX WILL BE GIVEN TO PATIENT AT TIME OF DISCHARGE FROM DETOX UNIT TOMORROW.
[2018-06-12] MEDS: hydrOXYzine PAMOATE 50 MG CAPSULE (FP) PO PRN (17:13)
[2018-06-12] MEDS: THIAMINE HCL 100 MG TABLET (FP) PO SCH (22:11)
[2018-06-12] MEDS: MELATONIN 5 MG TABLETS PO PRN (22:11)
[2018-06-13 06:38] VITALS: BP 129/76; PULSE 84; TEMP 98.5
--- NOTE | 2018-06-13 10:26 | DS ---
[facility] Detox Discharge Summary Admission Date: 06/09/18 Discharge Date: 06/13/18 - History Present History: Alcohol Dependence Additional Comments: 53 years old male admitted on 06/09/18 for alcohol withdrawal stabilizatin completed detox regimen aftercare as per counselor arrangement patient left around 0700 am today creative writer has not assessed nor evaluated the patient prior to be discharged - Physical Exam Results Vital Signs: Vital Signs Temperature 98.5 F 06/13/18 06:38 Pulse Rate 84 06/13/18 06:38 Respiratory Rate 18 06/13/18 06:38 Blood Pressure 129/76 06/13/18 06:38 O2 Sat by Pulse Oximetry (%) Pertinent Admission Physical Exam Findings: alcohol withdrawal sx Laboratory Last Values WBC 3.2 K/mm3 (4.0-10.0) L 06/10/18 07:40 RBC 3.67 M/mm3 (4.00-5.60) L 06/10/18 07:40 Hgb 12.6 GM/dL (11.7-16.9) 06/10/18 07:40 Hct 37.4 % (35.4-49) 06/10/18 07:40 MCV 101.8 fl (80-96) H 06/10/18 07:40 MCH 34.4 pg (25.7-33.7) H 06/10/18 07:40 MCHC 33.8 g/dl (32.0-35.9) 06/10/18 07:40 RDW 14.1 % (11.9-15.9) D 06/10/18 07:40 Plt Count 133 K/MM3 (134-434) L D 06/10/18 07:40 MPV 9.9 fl (7.5-11.1) 06/10/18 07:40 Sodium 137 mmol/L (136-145) 06/10/18 07:40 Potassium 3.6 mmol/L (3.5-5.1) 06/10/18 07:40 Chloride 104 mmol/L (98-107) 06/10/18 07:40 Carbon Dioxide 27 mmol/L (21-32) 06/10/18 07:40 Anion Gap 6 MMOL/L (8-16) L 06/10/18 07:40 BUN 11 mg/dL (7-18) 06/10/18 07:40 Creatinine 0.8 mg/dL (0.55-1.3) 06/10/18 07:40 Creat Clearance w eGFR 101.92 (>60) 06/10/18 07:40 Random Glucose 79 mg/dL (74-106) 06/10/18 07:40 Calcium 8.2 mg/dL (8.5-10.1) L 06/10/18 07:40 Total Bilirubin 0.5 mg/dL (0.2-1) 06/10/18 07:40 AST 56 U/L (15-37) H 06/11/18 07:45 ALT 80 U/L (13-61) H 06/11/18 07:45 Alkaline Phosphatase 56 U/L (45-117) 06/10/18 07:40 Total Protein 7.0 g/dl (6.4-8.2) 06/10/18 07:40 Albumin 3.5 g/dl (3.4-5.0) 06/10/18 07:40 RPR Titer Nonreactive (NONREACTIVE) 06/10/18 07:40 lab noted - Treatment Hospital Course: Detox Protocol Followed, Detoxed Safely, Responded well, Discharged Condition Good, Rehab Referral Accepted Patient has Accepted a Rehab Referral to: as per counselor arrangement - Medication Discharge Medications: Ambulatory Orders NK [No Known Home Medication] 04/01/18 - Diagnosis (1) Alcohol dependence in controlled environment Status: Acute (2) Substance induced mood disorder Status: Suspected - AMA Did Patient Leave Against Medical Advice: No
== END 2018-06-13 07:15 | disposition home or self-care (01) | DRG 775 ==
LOC: YASAS 14:05 → Y3N 16:46
PROVIDERS: ADMIT Surgery; ATTEND Surgery
PROC: HZ2ZZZZ Detoxification Services for Substance Abuse Treatment (ICD-10-PCS; principal; 2018-06-09)
DX: F10.230 Alcohol dependence with withdrawal, uncomplicated (principal); D69.6 Thrombocytopenia, unspecified; D72.819 Decreased white blood cell count, unspecified; R94.5 Abnormal results of liver function studies
CPT/HCPCS: 36415; 80053; 84450; 84460; 85027; 86593

== ENCOUNTER 2018-06-30 12:05 | Inpatient (IN) | payer OTHER | END 2018-07-04 09:00 | disposition home or self-care (01) | LOC: YASAS 12:05 → Y3N 14:22 ==

== ENCOUNTER 2018-07-31 08:36 | Inpatient (IN) | payer OTHER ==
[2018-07-31 09:32] VITALS: BMI 29.5
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
[2018-07-31] MEDS ORDERED: ACETAMINOPHEN 325 MG TABLET (FP) PO PRN (10:32)
[2018-07-31] MEDS ORDERED: IBUPROFEN 400 MG TABLET (FP) PO PRN (10:32)
[2018-07-31] MEDS ORDERED: MAG HYDROX/AL HYDROX/SIMETH 30 ML UNIT-DOSE CUP PO PRN (10:32)
[2018-07-31] MEDS ORDERED: BISMUTH SUBSALICYLATE 262 MG/15 ML BTL PO PRN (10:32)
[2018-07-31] MEDS ORDERED: MAGNESIUM CITRATE 300 ML BOTTLE PO PRN (10:32)
[2018-07-31] MEDS ORDERED: chlordiazePOXIDE HCL 10 MG CAPSULE PO PRN (10:32)
[2018-07-31] MEDS ORDERED: MAGNESIUM HYDROX 2400MG/30ML ORAL SUSPENSION 30 ML CUP PO PRN (10:32)
[2018-07-31] MEDS ORDERED: MENTHOL/PHENOL 1 EACH UD MM PRN (10:32)
[2018-07-31] MEDS: chlordiazePOXIDE HCL 25 MG CAPSULE PO SCH ×2 (14:10→19:59)
[2018-07-31] MEDS: hydrOXYzine PAMOATE 25 MG CAPSULE (FP) PO PRN (19:58)
[2018-07-31] MEDS: THIAMINE HCL 100 MG TABLET (FP) PO SCH (22:05)
[2018-07-31] MEDS: MELATONIN 5 MG TABLETS PO PRN (22:06)
[2018-08-01] MEDS: chlordiazePOXIDE HCL 25 MG CAPSULE PO SCH (05:01)
[2018-08-01] MEDS: PRENATAL VITAMINS W/ FOLIC ACID TABLET (FP) PO SCH (10:40)
[2018-08-01 12:23] LABS: ALBUMIN 3.9 g/dl (3.4-5.0); BILIRUBIN,TOTAL 1.1 mg/dL (0.2-1); BLOOD UREA NITROGEN 7.5 mg/dL (7-18); CALCIUM 8.9 mg/dL (8.5-10.1); CREATININE 0.9 mg/dL (0.55-1.3); POTASSIUM 3.7 mmol/L (3.5-5.1); TOT PROT 7.6 g/dl (6.4-8.2)
[2018-08-01 12:35] LABS: HEMATOCRIT 40.4 % (35.4-49); HEMOGLOBIN 13.8 GM/dL (11.7-16.9); MCH 34.6 pg (25.7-33.7); MCHC 34.1 g/dl (32.0-35.9); MEAN CELL VOLUME 101.4 fl (80-96); MEAN PLT VOLUME 10.1 fl (7.5-11.1); RBC 3.98 M/mm3 (4.00-5.60)
[2018-08-01 12:38] LABS: PLATELET COUNT 154 K/MM3 (134-434)
[2018-08-01] MEDS: ACETAMINOPHEN 325 MG TABLET (FP) PO PRN ×2 (14:08→22:11)
[2018-08-01] MEDS: chlordiazePOXIDE 5 MG CAPSULE PO SCH ×2 (14:08→22:08)
[2018-08-01] MEDS: hydrOXYzine PAMOATE 25 MG CAPSULE (FP) PO PRN ×2 (14:08→22:10)
--- NOTE | 2018-08-01 15:16 | PN ---
S CIWA - CIWA Score Nausea/Vomitin-No Nausea/No Vomiting Muscle Tremors: None Anxiety: 2 Agitation: 1-Slight > Activity Paroxysmal Sweats: 2 Orientation: 0-Oriented Tacttile Disturbances: 2-Mild Itch/Numbness/Burn Auditory Disturbances: 2-Mild Harshness/Frighten Visual Disturbances: 0-None Headache: 0-None Present CIWA-Ar Total Score: 9 BHS Progress Note (SOAP) Subjective: Diarrhea, Body Aches, Sweating. Objective: PATIENT A & O X 3. IN NO ACUTE DISTRESS. 08/01/18 15:15 Vital Signs Temperature 98.6 F 08/01/18 13:49 Pulse Rate 83 08/01/18 13:49 Respiratory Rate 18 08/01/18 13:49 Blood Pressure 133/91 08/01/18 13:49 O2 Sat by Pulse Oximetry (%) Laboratory Tests 08/01/18 08/01/18 08/01/18 08:55 08:55 08:55 WBC 4.0 RBC 3.98 L Hgb 13.8 Hct 40.4 MCV 101.4 H MCH 34.6 H MCHC 34.1 RDW 13.0 Plt Count 154 D MPV 10.1 Sodium 138 Potassium 3.7 Chloride 102 Carbon Dioxide 28 Anion Gap 8 BUN 7.5 Creatinine 0.9 Est GFR (CKD-EPI)AfAm 114.21 Est GFR (CKD-EPI)NonAf 98.54 Random Glucose 79 Calcium 8.9 Total Bilirubin 1.1 H AST 86 H ALT 64 H Alkaline Phosphatase 66 Total Protein 7.6 Albumin 3.9 HIV 1&2 Antibody Screen Negative HIV P24 Antigen Negative LABS NOTED. Assessment: 08/01/18 15:16 WITHDRAWAL SYMPTOMS. ELEVATED LIVER ENZYMES (ALT, AST). Plan: CONTINUE DETOX.
[2018-08-01] MEDS: THIAMINE HCL 100 MG TABLET (FP) PO SCH (22:08)
[2018-08-02] MEDS: chlordiazePOXIDE 5 MG CAPSULE PO SCH (05:33)
[2018-08-02] MEDS: PRENATAL VITAMINS W/ FOLIC ACID TABLET (FP) PO SCH (10:28)
[2018-08-02] MEDS: hydrOXYzine PAMOATE 25 MG CAPSULE (FP) PO PRN ×2 (10:29→18:38)
[2018-08-02] MEDS ORDERED: chlordiazePOXIDE HCL 10 MG CAPSULE PO PRN (13:00)
[2018-08-02] MEDS: chlordiazePOXIDE HCL 10 MG CAPSULE PO SCH ×2 (13:45→22:48)
--- NOTE | 2018-08-02 14:17 | PN ---
S CIWA - CIWA Score Nausea/Vomitin-No Nausea/No Vomiting Muscle Tremors: 3 Anxiety: 2 Agitation: 1-Slight > Activity Paroxysmal Sweats: 3 Orientation: 0-Oriented Tacttile Disturbances: 0-None Auditory Disturbances: 0-None Visual Disturbances: 0-None Headache: 0-None Present CIWA-Ar Total Score: 9 BHS Progress Note (SOAP) Subjective: Tremors, Diarrhea, Sweating. Objective: PATIENT A & O X 3, OBSERVED AMBULATING ON UNIT UNASSISTED. IN NO ACUTE DISTRESS. 08/02/18 14:18 Vital Signs Temperature 98.1 F 08/02/18 13:16 Pulse Rate 78 08/02/18 13:16 Respiratory Rate 18 08/02/18 13:16 Blood Pressure 127/87 08/02/18 13:16 O2 Sat by Pulse Oximetry (%) Laboratory Tests 08/01/18 08/01/18 08/01/18 08:55 08:55 08:55 WBC 4.0 RBC 3.98 L Hgb 13.8 Hct 40.4 MCV 101.4 H MCH 34.6 H MCHC 34.1 RDW 13.0 Plt Count 154 D MPV 10.1 Sodium 138 Potassium 3.7 Chloride 102 Carbon Dioxide 28 Anion Gap 8 BUN 7.5 Creatinine 0.9 Est GFR (CKD-EPI)AfAm 114.21 Est GFR (CKD-EPI)NonAf 98.54 Random Glucose 79 Calcium 8.9 Total Bilirubin 1.1 H AST 86 H ALT 64 H Alkaline Phosphatase 66 Total Protein 7.6 Albumin 3.9 HIV 1&2 Antibody Screen Negative HIV P24 Antigen Negative LABS NOTED. Assessment: 08/02/18 14:18 WITHDRAWAL SYMPTOMS. ELEVATED LIVER ENZYMES (AST, ALT). 08/02/18 14:19 Plan: CONTINUE DETOX. INCREASE DAILY PO FLUID / WATER INTAKE. PRN PEPTO-BISMOL FOR DIARRHEA.
[2018-08-02] MEDS: ACETAMINOPHEN 325 MG TABLET (FP) PO PRN (18:38)
[2018-08-02] MEDS: THIAMINE HCL 100 MG TABLET (FP) PO SCH (22:49)
[2018-08-02] MEDS: MELATONIN 5 MG TABLETS PO PRN (23:08)
[2018-08-03 06:12] VITALS: BP 114/65; PULSE 56; TEMP 97.8
[2018-08-03] MEDS: chlordiazePOXIDE HCL 10 MG CAPSULE PO SCH (06:42)
--- NOTE | 2018-08-03 17:41 | DS ---
[facility] Detox Discharge Summary Admission Date: 07/31/18 Discharge Date: 08/03/18 - History Present History: Alcohol Dependence, Cocaine Dependence Additional Comments: PATIENT GOING TO [facility] ([place], [place]) FOR AFTERCARE. PATIENT WAS DISCHARGED FROM DETOX UNIT IN STABLE MEDICAL CONDITION. Pertinent Past History: Depression, Elevated Liver Enzymes. - Physical Exam Results Vital Signs: Vital Signs Temperature 97.8 F 08/03/18 06:11 Pulse Rate 56 L 08/03/18 06:11 Respiratory Rate 18 08/03/18 06:11 Blood Pressure 114/65 08/03/18 06:11 O2 Sat by Pulse Oximetry (%) Pertinent Admission Physical Exam Findings: WITHDRAWAL SYMPTOMS. Laboratory Tests 08/01/18 08/01/18 08/01/18 08:55 08:55 08:55 WBC 4.0 RBC 3.98 L Hgb 13.8 Hct 40.4 MCV 101.4 H MCH 34.6 H MCHC 34.1 RDW 13.0 Plt Count 154 D MPV 10.1 Sodium 138 Potassium 3.7 Chloride 102 Carbon Dioxide 28 Anion Gap 8 BUN 7.5 Creatinine 0.9 Est GFR (CKD-EPI)AfAm 114.21 Est GFR (CKD-EPI)NonAf 98.54 Random Glucose 79 Calcium 8.9 Total Bilirubin 1.1 H AST 86 H ALT 64 H Alkaline Phosphatase 66 Total Protein 7.6 Albumin 3.9 HIV 1&2 Antibody Screen Negative HIV P24 Antigen Negative LABS NOTED. - Treatment Hospital Course: Detox Protocol Followed, Detoxed Safely, Responded well, Discharged Condition Good Patient has Accepted a Rehab Referral to: PT GOING TO [facility], [place], [place] - Medication Discharge Medications: Ambulatory Orders NK [No Known Home Medication] 04/01/18 - Diagnosis (1) Alcohol intoxication Status: Acute Qualifiers: Complication of substance-induced condition: uncomplicated Qualified Code(s ): F10.920 - Alcohol use, unspecified with intoxication, uncomplicated (2) Cocaine dependence Status: Acute Qualifiers: Substance use status: in withdrawal Qualified Code(s): F14.23 - Cocaine dependence with withdrawal (3) Elevated liver enzymes Status: Acute - AMA Did Patient Leave Against Medical Advice: No
== END 2018-08-03 10:24 | disposition home or self-care (01) | DRG 774 ==
LOC: YASAS 08:36 → Y3N 11:08
PROVIDERS: ADMIT Surgery; ATTEND Surgery
PROC: HZ2ZZZZ Detoxification Services for Substance Abuse Treatment (ICD-10-PCS; principal; 2018-07-31)
DX: F10.230 Alcohol dependence with withdrawal, uncomplicated (principal); F10.220 Alcohol dependence with intoxication, uncomplicated; F14.20 Cocaine dependence, uncomplicated; F13.20 Sedative, hypnotic or anxiolytic dependence, uncomplicated; F15.10 Other stimulant abuse, uncomplicated; F32.9 Major depressive disorder, single episode, unspecified; R94.5 Abnormal results of liver function studies
CPT/HCPCS: 36415; 80053; 85027; 87389

== ENCOUNTER 2018-10-10 11:11 | Inpatient (IN) | payer OTHER ==
[2018-10-10 12:34] VITALS: BMI 29.5
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
[2018-10-10] MEDS ORDERED: ACETAMINOPHEN 325 MG TABLET (FP) PO PRN ×2 (14:24)
[2018-10-10] MEDS ORDERED: METHOCARBAMOL 500 MG TABLET PO PRN (14:24)
[2018-10-10] MEDS ORDERED: MAGNESIUM CITRATE 300 ML BOTTLE PO PRN (14:24)
[2018-10-10] MEDS ORDERED: MAGNESIUM HYDROX 2400MG/30ML ORAL SUSPENSION 30 ML CUP PO PRN (14:24)
[2018-10-10] MEDS ORDERED: IBUPROFEN 400 MG TABLET (FP) PO PRN (14:24)
[2018-10-10] MEDS ORDERED: BISMUTH SUBSALICYLATE 262 MG/15 ML BTL PO PRN (14:24)
[2018-10-10] MEDS ORDERED: MENTHOL/PHENOL 1 EACH UD MM PRN (14:24)
[2018-10-10] MEDS ORDERED: chlordiazePOXIDE HCL 25 MG CAPSULE PO PRN (14:24)
[2018-10-10] MEDS ORDERED: MAG HYDROX/AL HYDROX/SIMETH 30 ML UNIT-DOSE CUP PO PRN (14:24)
[2018-10-10 16:52] LABS: HEMATOCRIT 40.5 % (35.4-49); HEMOGLOBIN 13.4 GM/dL (11.7-16.9); MCHC 33.2 g/dl (32.0-35.9); MEAN CELL VOLUME 99.4 fl (80-96); MEAN PLT VOLUME 9.5 fl (7.5-11.1); PLATELET COUNT 206 K/MM3 (134-434); RBC 4.07 M/mm3 (4.00-5.60); WHITE BLOOD COUNT 4.3 K/mm3 (4.0-10.0)
[2018-10-10] MEDS: chlordiazePOXIDE HCL 25 MG CAPSULE PO SCH ×2 (16:58→22:04)
[2018-10-10 17:04] LABS: BILIRUBIN,TOTAL 0.6 mg/dL (0.2-1); BLOOD UREA NITROGEN 8.4 mg/dL (7-18); CALCIUM 8.8 mg/dL (8.5-10.1); CREATININE 0.8 mg/dL (0.55-1.3); POTASSIUM 3.9 mmol/L (3.5-5.1); TOT PROT 7.6 g/dl (6.4-8.2)
[2018-10-10] MEDS: THIAMINE HCL 100 MG TABLET (FP) PO SCH (22:04)
[2018-10-11] MEDS: chlordiazePOXIDE HCL 25 MG CAPSULE PO SCH ×4 (05:29→22:10)
--- NOTE | 2018-10-11 09:34 | CONSULT ---
[facility] Psychiatric Consult - Data Date of interview: 10/11/18 Admission source: [facility] Identifying data: Patient refuses to see psychiatric nurse practitioner for psychiatric consultation. 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 I'm doing fine." Psychiatric consultation refused.
[2018-10-11] MEDS: PRENATAL VITAMINS W/ FOLIC ACID TABLET (FP) PO SCH (10:28)
--- NOTE | 2018-10-11 13:39 | PN ---
S CIWA - CIWA Score Nausea/Vomitin-No Nausea/No Vomiting Muscle Tremors: 3 Anxiety: 3 Agitation: 0-Normal Activity Paroxysmal Sweats: No Perspiration Orientation: 0-Oriented Tacttile Disturbances: 2-Mild Itch/Numbness/Burn Auditory Disturbances: 0-None Visual Disturbances: 3-Moderate Sensitivity Headache: 2-Mild CIWA-Ar Total Score: 13 BHS Progress Note (SOAP) Subjective: Anxious, Tremors, Fatigue, H/A. Objective: PATIENT A & O X 3. IN NO ACUTE DISTRESS. 10/11/18 13:38 Vital Signs Temperature 97.1 F L 10/11/18 09:32 Pulse Rate 66 10/11/18 09:32 Respiratory Rate 18 10/11/18 09:32 Blood Pressure 112/69 10/11/18 09:32 O2 Sat by Pulse Oximetry (%) Laboratory Tests 10/10/18 10/10/18 10/10/18 14:15 14:15 14:15 WBC 4.3 RBC 4.07 Hgb 13.4 Hct 40.5 MCV 99.4 H MCH 33.0 MCHC 33.2 RDW 13.0 Plt Count 206 D MPV 9.5 Sodium 139 Potassium 3.9 Chloride 105 Carbon Dioxide 26 Anion Gap 9 BUN 8.4 Creatinine 0.8 Est GFR (CKD-EPI)AfAm 119.88 Est GFR (CKD-EPI)NonAf 103.43 Random Glucose 94 Calcium 8.8 Total Bilirubin 0.6 AST 33 ALT 34 Alkaline Phosphatase 55 Total Protein 7.6 Albumin 4.0 RPR Titer Nonreactive LABS NOTED. Assessment: 10/11/18 13:39 WITHDRAWAL SYMPTOMS. Plan: CONTINUE DETOX.
[2018-10-11] MEDS: MELATONIN 5 MG TABLETS PO PRN (22:10)
[2018-10-11] MEDS: THIAMINE HCL 100 MG TABLET (FP) PO SCH (22:10)
[2018-10-12] MEDS: chlordiazePOXIDE HCL 25 MG CAPSULE PO SCH ×4 (05:13→22:14)
[2018-10-12] MEDS: PRENATAL VITAMINS W/ FOLIC ACID TABLET (FP) PO SCH (10:24)
[2018-10-12] MEDS: hydrOXYzine PAMOATE 25 MG CAPSULE (FP) PO PRN (12:14)
--- NOTE | 2018-10-12 13:11 | PN ---
S CIWA - CIWA Score Nausea/Vomitin-No Nausea/No Vomiting Muscle Tremors: None Anxiety: 3 Agitation: 0-Normal Activity Paroxysmal Sweats: No Perspiration Orientation: 0-Oriented Tacttile Disturbances: 2-Mild Itch/Numbness/Burn Auditory Disturbances: 0-None Visual Disturbances: 3-Moderate Sensitivity Headache: 2-Mild CIWA-Ar Total Score: 10 S Progress Note (SOAP) Subjective: Anxious, Fatigue, H/A. Objective: PATIENT A & O X 3. IN NO ACUTE DISTRESS. 10/12/18 13:10 Vital Signs Temperature 97.4 F L 10/12/18 09:22 Pulse Rate 78 10/12/18 09:22 Respiratory Rate 18 10/12/18 09:22 Blood Pressure 109/73 10/12/18 09:22 O2 Sat by Pulse Oximetry (%) Laboratory Tests 10/10/18 10/10/18 10/10/18 14:15 14:15 14:15 WBC 4.3 RBC 4.07 Hgb 13.4 Hct 40.5 MCV 99.4 H MCH 33.0 MCHC 33.2 RDW 13.0 Plt Count 206 D MPV 9.5 Sodium 139 Potassium 3.9 Chloride 105 Carbon Dioxide 26 Anion Gap 9 BUN 8.4 Creatinine 0.8 Est GFR (CKD-EPI)AfAm 119.88 Est GFR (CKD-EPI)NonAf 103.43 Random Glucose 94 Calcium 8.8 Total Bilirubin 0.6 AST 33 ALT 34 Alkaline Phosphatase 55 Total Protein 7.6 Albumin 4.0 RPR Titer Nonreactive LABS NOTED. DETOX ADMISSION UA RESULTS PENDING. 10/12/18 13:10 Assessment: 10/12/18 13:10 WITHDRAWAL SYMPTOMS. 10/12/18 13:10 Plan: CONTINUE DETOX. ENCOURAGE AMBULATION.
[2018-10-12 14:56] LABS: URINE APPEARANCE CLEAR; URINE BILIRUBIN NEGATIVE (NEGATIVE); URINE COLOR YELLOW; URINE GLUCOSE (UA) NEGATIVE (NEGATIVE); URINE KETONE NEGATIVE (NEGATIVE); URINE LEUK ESTERASE NEGATIVE (NEGATIVE); URINE NITRITE NEGATIVE (NEGATIVE); URINE PROTEIN NEGATIVE (NEGATIVE); URINE UROBILINOGEN 0.2 mg/dL (0.2-1.0)
[2018-10-12] MEDS: THIAMINE HCL 100 MG TABLET (FP) PO SCH (22:14)
[2018-10-12] MEDS: MELATONIN 5 MG TABLETS PO PRN (22:14)
[2018-10-13] MEDS ORDERED: chlordiazePOXIDE HCL 10 MG CAPSULE PO PRN
[2018-10-13] MEDS: chlordiazePOXIDE HCL 10 MG CAPSULE PO SCH ×4 (05:37→22:02)
[2018-10-13] MEDS: PRENATAL VITAMINS W/ FOLIC ACID TABLET (FP) PO SCH (10:06)
[2018-10-13] MEDS: hydrOXYzine PAMOATE 25 MG CAPSULE (FP) PO PRN (10:07)
--- NOTE | 2018-10-13 12:23 | PN ---
S CIWA - CIWA Score Nausea/Vomitin-No Nausea/No Vomiting Muscle Tremors: None Anxiety: 3 Agitation: 1-Slight > Activity Paroxysmal Sweats: No Perspiration Orientation: 0-Oriented Tacttile Disturbances: 1-Very Mild Itch/Numbness Auditory Disturbances: 0-None Visual Disturbances: 3-Moderate Sensitivity Headache: 0-None Present CIWA-Ar Total Score: 8 BHS Progress Note (SOAP) Subjective: Anxious, Fatigue. Objective: PATIENT A & O X 3, OBSERVED AMBULATING ON UNIT UNASSISTED. IN NO ACUTE DISTRESS. 10/13/18 12:24 Vital Signs Temperature 96 F L 10/13/18 09:11 Pulse Rate 57 L 10/13/18 09:11 Respiratory Rate 20 10/13/18 09:11 Blood Pressure 106/68 10/13/18 09:11 O2 Sat by Pulse Oximetry (%) Laboratory Tests 10/10/18 10/10/18 10/10/18 14:15 14:15 14:15 WBC 4.3 RBC 4.07 Hgb 13.4 Hct 40.5 MCV 99.4 H MCH 33.0 MCHC 33.2 RDW 13.0 Plt Count 206 D MPV 9.5 Sodium 139 Potassium 3.9 Chloride 105 Carbon Dioxide 26 Anion Gap 9 BUN 8.4 Creatinine 0.8 Est GFR (CKD-EPI)AfAm 119.88 Est GFR (CKD-EPI)NonAf 103.43 Random Glucose 94 Calcium 8.8 Total Bilirubin 0.6 AST 33 ALT 34 Alkaline Phosphatase 55 Total Protein 7.6 Albumin 4.0 Urine Color Urine Appearance Urine pH Ur Specific [place] Urine Protein Urine Glucose (UA) Urine Ketones Urine Blood Urine Nitrite Urine Bilirubin Urine Urobilinogen Ur Leukocyte Esterase RPR Titer Nonreactive 10/11/18 12:00 WBC RBC Hgb Hct MCV MCH MCHC RDW Plt Count MPV Sodium Potassium Chloride Carbon Dioxide Anion Gap BUN Creatinine Est GFR (CKD-EPI)AfAm Est GFR (CKD-EPI)NonAf Random Glucose Calcium Total Bilirubin AST ALT Alkaline Phosphatase Total Protein Albumin Urine Color Yellow Urine Appearance Clear Urine pH 6.0 Ur Specific [place] 1.025 Urine Protein Negative Urine Glucose (UA) Negative Urine Ketones Negative Urine Blood Negative Urine Nitrite Negative Urine Bilirubin Negative Urine Urobilinogen 0.2 Ur Leukocyte Esterase Negative RPR Titer LABS NOTED. Assessment: 10/13/18 12:25 WITHDRAWAL SYMPTOMS. Plan: CONTINUE DETOX. INCREASE DAILY PO WATER INTAKE. ENCOURAGE AMBULATION.
[2018-10-13] MEDS: THIAMINE HCL 100 MG TABLET (FP) PO SCH (22:02)
[2018-10-13] MEDS: MELATONIN 5 MG TABLETS PO PRN (22:02)
[2018-10-14] MEDS: chlordiazePOXIDE HCL 10 MG CAPSULE PO SCH ×2 (05:46→18:06)
--- NOTE | 2018-10-14 09:30 | PN ---
[facility] CIWA - CIWA Score Nausea/Vomitin-No Nausea/No Vomiting Muscle Tremors: 1-None Visible, but [place] Anxiety: 2 Agitation: 1-Slight > Activity Paroxysmal Sweats: 1-Minimal Palms Moist Orientation: 0-Oriented Tacttile Disturbances: 0-None Auditory Disturbances: 0-None Visual Disturbances: 0-None Headache: 0-None Present CIWA-Ar Total Score: 5 BHS Progress Note (SOAP) Subjective: 53 years old male admitted on 10/10/18 for acute alcohol withdrawal sx management doing well with libirum detox regimen ate 100% breakfast resting on bed comfortably Objective: 10/14/18 09:32 Vital Signs Temperature 97.9 F 10/14/18 09:11 Pulse Rate 62 10/14/18 09:11 Respiratory Rate 18 10/14/18 09:11 Blood Pressure 100/60 10/14/18 09:11 O2 Sat by Pulse Oximetry (%) Laboratory Last Values WBC 4.3 K/mm3 (4.0-10.0) 10/10/18 14:15 RBC 4.07 M/mm3 (4.00-5.60) 10/10/18 14:15 Hgb 13.4 GM/dL (11.7-16.9) 10/10/18 14:15 Hct 40.5 % (35.4-49) 10/10/18 14:15 MCV 99.4 fl (80-96) H 10/10/18 14:15 MCH 33.0 pg (25.7-33.7) 10/10/18 14:15 MCHC 33.2 g/dl (32.0-35.9) 10/10/18 14:15 RDW 13.0 % (11.9-15.9) 10/10/18 14:15 Plt Count 206 K/MM3 (134-434) D 10/10/18 14:15 MPV 9.5 fl (7.5-11.1) 10/10/18 14:15 Sodium 139 mmol/L (136-145) 10/10/18 14:15 Potassium 3.9 mmol/L (3.5-5.1) 10/10/18 14:15 Chloride 105 mmol/L (98-107) 10/10/18 14:15 Carbon Dioxide 26 mmol/L (21-32) 10/10/18 14:15 Anion Gap 9 MMOL/L (8-16) 10/10/18 14:15 BUN 8.4 mg/dL (7-18) 10/10/18 14:15 Creatinine 0.8 mg/dL (0.55-1.3) 10/10/18 14:15 Est GFR (CKD-EPI)AfAm 119.88 10/10/18 14:15 Est GFR (CKD-EPI)NonAf 103.43 10/10/18 14:15 Random Glucose 94 mg/dL (74-106) 10/10/18 14:15 Calcium 8.8 mg/dL (8.5-10.1) 10/10/18 14:15 Total Bilirubin 0.6 mg/dL (0.2-1) 10/10/18 14:15 AST 33 U/L (15-37) 10/10/18 14:15 ALT 34 U/L (13-61) 10/10/18 14:15 Alkaline Phosphatase 55 U/L (45-117) 10/10/18 14:15 Total Protein 7.6 g/dl (6.4-8.2) 10/10/18 14:15 Albumin 4.0 g/dl (3.4-5.0) 10/10/18 14:15 Urine Color Yellow 10/11/18 12:00 Urine Appearance Clear 10/11/18 12:00 Urine pH 6.0 (5.0-8.0) 10/11/18 12:00 Ur Specific [place] 1.025 (1.010-1.035) 10/11/18 12:00 Urine Protein Negative (NEGATIVE) 10/11/18 12:00 Urine Glucose (UA) Negative (NEGATIVE) 10/11/18 12:00 Urine Ketones Negative (NEGATIVE) 10/11/18 12:00 Urine Blood Negative (NEGATIVE) 10/11/18 12:00 Urine Nitrite Negative (NEGATIVE) 10/11/18 12:00 Urine Bilirubin Negative (NEGATIVE) 10/11/18 12:00 Urine Urobilinogen 0.2 mg/dL (0.2-1.0) 10/11/18 12:00 Ur Leukocyte Esterase Negative (NEGATIVE) 10/11/18 12:00 RPR Titer Nonreactive (NONREACTIVE) 10/10/18 14:15 lab noted Assessment: 10/14/18 09:32 alcohol withdrawal sx 10/14/18 09:33 discuss aftercare [facility] with staff Plan: continue librum detox regimen psychosocial toward sobriety
[2018-10-14] MEDS: PRENATAL VITAMINS W/ FOLIC ACID TABLET (FP) PO SCH (10:34)
[2018-10-14] MEDS: hydrOXYzine PAMOATE 25 MG CAPSULE (FP) PO PRN (21:33)
[2018-10-14] MEDS: THIAMINE HCL 100 MG TABLET (FP) PO SCH (21:33)
[2018-10-14] MEDS: MELATONIN 5 MG TABLETS PO PRN (22:00)
[2018-10-15] MEDS ORDERED: chlordiazePOXIDE HCL 10 MG CAPSULE PO ONE (05:00)
[2018-10-15 06:10] VITALS: BP 90/57; PULSE 62; TEMP 97.1
--- NOTE | 2018-10-15 13:23 | DS ---
[facility] Detox Discharge Summary Admission Date: 10/10/18 Discharge Date: 10/15/18 - History Present History: Alcohol Dependence Additional Comments: 53 years old male admitted on 10/10/18 for alcohol withdrawal sx management doing well with librum detox regimen no complication through out the detox stay alert oriented x 3 speech clearly coherently denies dizziness no shortness of breath no whezzing skin warm dry abdomen soft non tender - Physical Exam Results Vital Signs: Vital Signs Temperature 97.1 F L 10/15/18 06:09 Pulse Rate 62 10/15/18 06:09 Respiratory Rate 18 10/15/18 06:30 Blood Pressure 90/57 L 10/15/18 06:09 O2 Sat by Pulse Oximetry (%) Pertinent Admission Physical Exam Findings: alcohol withdrawal sx Laboratory Last Values WBC 4.3 K/mm3 (4.0-10.0) 10/10/18 14:15 RBC 4.07 M/mm3 (4.00-5.60) 10/10/18 14:15 Hgb 13.4 GM/dL (11.7-16.9) 10/10/18 14:15 Hct 40.5 % (35.4-49) 10/10/18 14:15 MCV 99.4 fl (80-96) H 10/10/18 14:15 MCH 33.0 pg (25.7-33.7) 10/10/18 14:15 MCHC 33.2 g/dl (32.0-35.9) 10/10/18 14:15 RDW 13.0 % (11.9-15.9) 10/10/18 14:15 Plt Count 206 K/MM3 (134-434) D 10/10/18 14:15 MPV 9.5 fl (7.5-11.1) 10/10/18 14:15 Sodium 139 mmol/L (136-145) 10/10/18 14:15 Potassium 3.9 mmol/L (3.5-5.1) 10/10/18 14:15 Chloride 105 mmol/L (98-107) 10/10/18 14:15 Carbon Dioxide 26 mmol/L (21-32) 10/10/18 14:15 Anion Gap 9 MMOL/L (8-16) 10/10/18 14:15 BUN 8.4 mg/dL (7-18) 10/10/18 14:15 Creatinine 0.8 mg/dL (0.55-1.3) 10/10/18 14:15 Est GFR (CKD-EPI)AfAm 119.88 10/10/18 14:15 Est GFR (CKD-EPI)NonAf 103.43 10/10/18 14:15 Random Glucose 94 mg/dL (74-106) 10/10/18 14:15 Calcium 8.8 mg/dL (8.5-10.1) 10/10/18 14:15 Total Bilirubin 0.6 mg/dL (0.2-1) 10/10/18 14:15 AST 33 U/L (15-37) 10/10/18 14:15 ALT 34 U/L (13-61) 10/10/18 14:15 Alkaline Phosphatase 55 U/L (45-117) 10/10/18 14:15 Total Protein 7.6 g/dl (6.4-8.2) 10/10/18 14:15 Albumin 4.0 g/dl (3.4-5.0) 10/10/18 14:15 Urine Color Yellow 10/11/18 12:00 Urine Appearance Clear 10/11/18 12:00 Urine pH 6.0 (5.0-8.0) 10/11/18 12:00 Ur Specific [place] 1.025 (1.010-1.035) 10/11/18 12:00 Urine Protein Negative (NEGATIVE) 10/11/18 12:00 Urine Glucose (UA) Negative (NEGATIVE) 10/11/18 12:00 Urine Ketones Negative (NEGATIVE) 10/11/18 12:00 Urine Blood Negative (NEGATIVE) 10/11/18 12:00 Urine Nitrite Negative (NEGATIVE) 10/11/18 12:00 Urine Bilirubin Negative (NEGATIVE) 10/11/18 12:00 Urine Urobilinogen 0.2 mg/dL (0.2-1.0) 10/11/18 12:00 Ur Leukocyte Esterase Negative (NEGATIVE) 10/11/18 12:00 RPR Titer Nonreactive (NONREACTIVE) 10/10/18 14:15 lab noted Vital Signs - Treatment Hospital Course: Detox Protocol Followed, Detoxed Safely, Responded well, Discharged Condition Good, Rehab Referral Accepted Patient has Accepted a Rehab Referral to: [facility] - Medication Discharge Medications: Ambulatory Orders NK [No Known Home Medication] 04/01/18 - Diagnosis (1) Alcohol dependence in controlled environment Status: Acute (2) History of positive PPD Status: Resolved (3) Substance induced mood disorder Status: Suspected - AMA Did Patient Leave Against Medical Advice: No
== END 2018-10-15 09:58 | disposition home or self-care (01) | DRG 774 ==
LOC: YASAS 11:11 → Y3N 14:35
PROVIDERS: ADMIT Surgery; ATTEND Surgery
PROC: HZ2ZZZZ Detoxification Services for Substance Abuse Treatment (ICD-10-PCS; principal; 2018-10-10)
DX: F10.230 Alcohol dependence with withdrawal, uncomplicated (principal); F14.23 Cocaine dependence with withdrawal; F19.24 Other psychoactive substance dependence with psychoactive substance-induced mood disorder; F41.9 Anxiety disorder, unspecified; F32.9 Major depressive disorder, single episode, unspecified; G47.00 Insomnia, unspecified; R76.11 Nonspecific reaction to tuberculin skin test without active tuberculosis
CPT/HCPCS: 36415; 80053; 81003; 85027; 86593

== ENCOUNTER 2018-11-13 11:28 | Inpatient (IN) | payer OTHER ==
[2018-11-13 16:25] VITALS: BMI 28.6
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
[2018-11-13] MEDS ORDERED: MAGNESIUM HYDROX 2400MG/30ML ORAL SUSPENSION 30 ML CUP PO PRN (17:03)
[2018-11-13] MEDS ORDERED: MAG HYDROX/AL HYDROX/SIMETH 30 ML UNIT-DOSE CUP PO PRN (17:03)
[2018-11-13] MEDS ORDERED: ACETAMINOPHEN 325 MG TABLET (FP) PO PRN ×2 (17:03)
[2018-11-13] MEDS ORDERED: MAGNESIUM CITRATE 300 ML BOTTLE PO PRN (17:03)
[2018-11-13] MEDS ORDERED: IBUPROFEN 400 MG TABLET (FP) PO PRN (17:03)
[2018-11-13] MEDS ORDERED: MENTHOL/PHENOL 1 EACH UD MM PRN (17:03)
[2018-11-13] MEDS ORDERED: BISMUTH SUBSALICYLATE 524 MG/30 ML UD PO PRN (17:03)
[2018-11-13] MEDS ORDERED: QUEtiapine FUMARATE 50 MG TABLET PO PRN (17:03)
[2018-11-13] MEDS ORDERED: chlordiazePOXIDE HCL 10 MG CAPSULE PO PRN (17:11)
[2018-11-13] MEDS: hydrOXYzine PAMOATE 25 MG CAPSULE (FP) PO PRN (17:42)
[2018-11-13] MEDS: chlordiazePOXIDE HCL 25 MG CAPSULE PO SCH (21:23)
[2018-11-13] MEDS: THIAMINE HCL 100 MG TABLET (FP) PO SCH (21:23)
[2018-11-13] MEDS: MELATONIN 5 MG TABLETS PO PRN (21:23)
[2018-11-14] MEDS: chlordiazePOXIDE HCL 25 MG CAPSULE PO SCH ×3 (05:35→22:22)
--- NOTE | 2018-11-14 09:54 | CONSULT ---
[facility] Psychiatric Consult - Data Date of interview: 11/14/18 Psychiatric History: Patient approached at bedside. 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
[2018-11-14] MEDS: hydrOXYzine PAMOATE 25 MG CAPSULE (FP) PO PRN ×2 (10:26→20:12)
[2018-11-14] MEDS: PRENATAL VITAMINS W/ FOLIC ACID TABLET (FP) PO SCH (10:26)
[2018-11-14 11:19] LABS: HEMATOCRIT 36.1 % (35.4-49); HEMOGLOBIN 12.1 GM/dL (11.7-16.9); MCHC 33.5 g/dl (32.0-35.9); MEAN CELL VOLUME 101.5 fl (80-96); MEAN PLT VOLUME 9.9 fl (7.5-11.1); PLATELET COUNT 157 K/MM3 (134-434); RBC 3.56 M/mm3 (4.00-5.60); RDW 14.4 % (11.9-15.9); WHITE BLOOD COUNT 3.9 K/mm3 (4.0-10.0)
[2018-11-14 11:22] LABS: ALBUMIN 3.2 g/dl (3.4-5.0); BILIRUBIN,TOTAL 0.4 mg/dL (0.2-1); BLOOD UREA NITROGEN 6.6 mg/dL (7-18); CALCIUM 8.3 mg/dL (8.5-10.1); CREATININE 0.9 mg/dL (0.55-1.3); POTASSIUM 4.4 mmol/L (3.5-5.1); TOT PROT 6.4 g/dl (6.4-8.2)
--- NOTE | 2018-11-14 13:10 | PN ---
S CIWA - CIWA Score Nausea/Vomitin-No Nausea/No Vomiting Muscle Tremors: 3 Anxiety: 3 Agitation: 3 Paroxysmal Sweats: 1-Minimal Palms Moist Orientation: 0-Oriented Tacttile Disturbances: 0-None Auditory Disturbances: 0-None Visual Disturbances: 0-None Headache: 0-None Present CIWA-Ar Total Score: 10 S Progress Note (SOAP) Subjective: irritable agitation body aches interrupted sleep Objective: 11/14/18 13:10 Vital Signs Temperature 98.0 F 11/14/18 12:50 Pulse Rate 71 11/14/18 12:50 Respiratory Rate 11/14/18 12:50 Blood Pressure 136/88 11/14/18 12:50 O2 Sat by Pulse Oximetry (%) Laboratory Tests 11/14/18 11/14/18 07:45 07:45 WBC 3.9 L RBC 3.56 L Hgb 12.1 Hct 36.1 MCV 101.5 H MCH 34.0 H MCHC 33.5 RDW 14.4 D Plt Count 157 D MPV 9.9 Sodium 138 Potassium 4.4 Chloride 105 Carbon Dioxide 27 Anion Gap 6 L BUN 6.6 L Creatinine 0.9 Est GFR (CKD-EPI)AfAm 114.21 Est GFR (CKD-EPI)NonAf 98.54 Random Glucose 87 Calcium 8.3 L Total Bilirubin 0.4 AST 52 H ALT 43 Alkaline Phosphatase 51 Total Protein 6.4 Albumin 3.2 L labs noted aaox3 ambulating no acute distress Assessment: 11/14/18 13:10 withdrawals sx Plan: continue detox increase fluids
[2018-11-14] MEDS: MELATONIN 5 MG TABLETS PO PRN (22:22)
[2018-11-14] MEDS: THIAMINE HCL 100 MG TABLET (FP) PO SCH (22:22)
[2018-11-15] MEDS: chlordiazePOXIDE 5 MG CAPSULE PO SCH ×3 (05:30→22:29)
[2018-11-15] MEDS: PRENATAL VITAMINS W/ FOLIC ACID TABLET (FP) PO SCH (10:14)
[2018-11-15] MEDS: hydrOXYzine PAMOATE 25 MG CAPSULE (FP) PO PRN (10:15)
[2018-11-15] MEDS: METHOCARBAMOL 500 MG TABLET PO PRN (10:15)
--- NOTE | 2018-11-15 11:37 | PN ---
S CIWA - CIWA Score Nausea/Vomitin-No Nausea/No Vomiting Muscle Tremors: 3 Anxiety: 2 Agitation: 2 Paroxysmal Sweats: 2 Orientation: 0-Oriented Tacttile Disturbances: 0-None Auditory Disturbances: 0-None Visual Disturbances: 0-None Headache: 0-None Present CIWA-Ar Total Score: 9 S Progress Note (SOAP) Subjective: diarrhea sweats irritable interrupted sleep Objective: 11/15/18 11:36 Vital Signs Temperature 98.1 F 11/15/18 09:41 Pulse Rate 70 11/15/18 09:41 Respiratory Rate 18 11/15/18 09:41 Blood Pressure 138/89 11/15/18 09:41 O2 Sat by Pulse Oximetry (%) Laboratory Tests 11/14/18 11/14/18 11/14/18 07:45 07:45 07:45 WBC 3.9 L RBC 3.56 L Hgb 12.1 Hct 36.1 MCV 101.5 H MCH 34.0 H MCHC 33.5 RDW 14.4 D Plt Count 157 D MPV 9.9 Sodium 138 Potassium 4.4 Chloride 105 Carbon Dioxide 27 Anion Gap 6 L BUN 6.6 L Creatinine 0.9 Est GFR (CKD-EPI)AfAm 114.21 Est GFR (CKD-EPI)NonAf 98.54 Random Glucose 87 Calcium 8.3 L Total Bilirubin 0.4 AST 52 H ALT 43 Alkaline Phosphatase 51 Total Protein 6.4 Albumin 3.2 L RPR Titer Nonreactive labs noted aaox3 ambulating no acute distress Assessment: 11/15/18 11:37 withdrawals Plan: continue detox increase fluids pepto bismal prn
[2018-11-15] MEDS: MELATONIN 5 MG TABLETS PO PRN (22:29)
[2018-11-15] MEDS: THIAMINE HCL 100 MG TABLET (FP) PO SCH (22:29)
[2018-11-16] MEDS ORDERED: chlordiazePOXIDE HCL 10 MG CAPSULE PO PRN
[2018-11-16] MEDS: chlordiazePOXIDE HCL 10 MG CAPSULE PO SCH ×3 (05:46→22:07)
[2018-11-16] MEDS: METHOCARBAMOL 500 MG TABLET PO PRN (09:36)
[2018-11-16] MEDS: hydrOXYzine PAMOATE 25 MG CAPSULE (FP) PO PRN (09:36)
[2018-11-16] MEDS: PRENATAL VITAMINS W/ FOLIC ACID TABLET (FP) PO SCH (09:36)
--- NOTE | 2018-11-16 10:21 | PN ---
S CIWA - CIWA Score Nausea/Vomitin-No Nausea/No Vomiting Muscle Tremors: None Anxiety: 1-Mildly Anxious Agitation: 1-Slight > Activity Paroxysmal Sweats: No Perspiration Orientation: 0-Oriented Tacttile Disturbances: 0-None Auditory Disturbances: 0-None Visual Disturbances: 0-None Headache: 0-None Present CIWA-Ar Total Score: 2 BHS Progress Note (SOAP) Subjective: feeling much better little anxiety Objective: 11/16/18 10:20 Vital Signs Temperature 98.2 F 11/16/18 09:29 Pulse Rate 65 11/16/18 09:29 Respiratory Rate 18 11/16/18 09:29 Blood Pressure 110/67 11/16/18 09:29 O2 Sat by Pulse Oximetry (%) aaox3 ambulating no acute distress Assessment: 11/16/18 10:21 mild withdrawals Plan: continue detox d/c in am
[2018-11-16] MEDS: MELATONIN 5 MG TABLETS PO PRN (22:07)
[2018-11-16] MEDS: THIAMINE HCL 100 MG TABLET (FP) PO SCH (22:07)
[2018-11-17] MEDS ORDERED: chlordiazePOXIDE HCL 10 MG CAPSULE PO ONE (05:00)
[2018-11-17 07:43] VITALS: BP 113/78; PULSE 78; TEMP 98.1
[2018-11-17] MEDS: hydrOXYzine PAMOATE 25 MG CAPSULE (FP) PO PRN (08:43)
--- NOTE | 2018-11-17 12:51 | DS ---
[facility] Detox Discharge Summary Admission Date: 11/13/18 Discharge Date: 11/17/18 - History Present History: Alcohol Dependence Additional Comments: Pt is medically cleared and discharged today. Pt completed his detox protocol. Pt is encouraged to follow-up with [facility] outpatient program and also to follow-up with his pmd. Pt verbalized understanding of information given. Pt is alert and oriented x3 and in no acute respiratory distress. Pertinent Past History: h/o alcohol and cocaine use disorder. - Physical Exam Results Vital Signs: Vital Signs Temperature 98.1 F 11/17/18 07:42 Pulse Rate 78 11/17/18 07:42 Respiratory Rate 18 11/17/18 07:42 Blood Pressure 113/78 11/17/18 07:42 O2 Sat by Pulse Oximetry (%) Vital Signs 11/17/18 07:42 Temperature 98.1 F Pulse Rate 78 Respiratory 18 Rate Blood Pressure 113/78 Lab Results WBC 3.9 K/mm3 (4.0-10.0) L 11/14/18 07:45 RBC 3.56 M/mm3 (4.00-5.60) L 11/14/18 07:45 Hgb 12.1 GM/dL (11.7-16.9) 11/14/18 07:45 Hct 36.1 % (35.4-49) 11/14/18 07:45 MCV 101.5 fl (80-96) H 11/14/18 07:45 MCHC 33.5 g/dl (32.0-35.9) 11/14/18 07:45 RDW 14.4 % (11.9-15.9) D 11/14/18 07:45 Plt Count 157 K/MM3 (134-434) D 11/14/18 07:45 Sodium 138 mmol/L (136-145) 11/14/18 07:45 Potassium 4.4 mmol/L (3.5-5.1) 11/14/18 07:45 Chloride 105 mmol/L (98-107) 11/14/18 07:45 Carbon Dioxide 27 mmol/L (21-32) 11/14/18 07:45 Anion Gap 6 MMOL/L (8-16) L 11/14/18 07:45 BUN 6.6 mg/dL (7-18) L 11/14/18 07:45 Creatinine 0.9 mg/dL (0.55-1.3) 11/14/18 07:45 Random Glucose 87 mg/dL (74-106) 11/14/18 07:45 Calcium 8.3 mg/dL (8.5-10.1) L 11/14/18 07:45 Labs noted. Pertinent Admission Physical Exam Findings: withdrawal symptoms. - Treatment Hospital Course: Detox Protocol Followed, Detoxed Safely, Responded well, Discharged Condition Good - Medication Discharge Medications: Ambulatory Orders Trazodone HCl 150 mg PO HS 11/13/18 - Diagnosis (1) Alcohol intoxication Status: Acute Qualifiers: Complication of substance-induced condition: uncomplicated Qualified Code(s ): F10.920 - Alcohol use, unspecified with intoxication, uncomplicated (2) Thrombocytopenia Status: Acute (3) Amphetamine abuse Status: Chronic (4) Cannabis dependence Status: Chronic - AMA Did Patient Leave Against Medical Advice: No BHS CIWA - CIWA Score Nausea/Vomitin-No Nausea/No Vomiting Muscle Tremors: None Anxiety: 1-Mildly Anxious Agitation: 0-Normal Activity Paroxysmal Sweats: 1-Minimal Palms Moist Orientation: 0-Oriented Tacttile Disturbances: 0-None Auditory Disturbances: 0-None Visual Disturbances: 0-None Headache: 0-None Present CIWA-Ar Total Score: 2
== END 2018-11-17 09:04 | disposition home or self-care (01) | DRG 774 ==
LOC: YASAS 11:28 → Y6N 17:14
PROVIDERS: ADMIT Surgery; ATTEND Surgery
PROC: HZ2ZZZZ Detoxification Services for Substance Abuse Treatment (ICD-10-PCS; principal; 2018-11-13)
DX: F10.230 Alcohol dependence with withdrawal, uncomplicated (principal); F10.220 Alcohol dependence with intoxication, uncomplicated; F14.20 Cocaine dependence, uncomplicated; F15.10 Other stimulant abuse, uncomplicated; F41.8 Other specified anxiety disorders; F12.20 Cannabis dependence, uncomplicated; F32.9 Major depressive disorder, single episode, unspecified; D69.6 Thrombocytopenia, unspecified; R76.11 Nonspecific reaction to tuberculin skin test without active tuberculosis
CPT/HCPCS: 36415; 80053; 85027; 86593

== ENCOUNTER 2018-12-09 11:51 | Inpatient (IN) | payer OTHER ==
[2018-12-09 13:07] VITALS: BMI 29.5
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
[2018-12-09] MEDS ORDERED: MAG HYDROX/AL HYDROX/SIMETH 30 ML UNIT-DOSE CUP PO PRN (15:03)
[2018-12-09] MEDS ORDERED: chlordiazePOXIDE HCL 25 MG CAPSULE PO PRN (15:03)
[2018-12-09] MEDS ORDERED: IBUPROFEN 400 MG TABLET (FP) PO PRN (15:03)
[2018-12-09] MEDS ORDERED: MENTHOL/PHENOL 1 EACH UD MM PRN (15:03)
[2018-12-09] MEDS ORDERED: MAGNESIUM HYDROX 2400MG/30ML ORAL SUSPENSION 30 ML CUP PO PRN (15:03)
[2018-12-09] MEDS ORDERED: MAGNESIUM CITRATE 300 ML BOTTLE PO PRN (15:03)
[2018-12-09] MEDS ORDERED: chlordiazePOXIDE HCL 25 MG CAPSULE PO ONE (15:03)
[2018-12-09] MEDS ORDERED: ACETAMINOPHEN 325 MG TABLET (FP) PO PRN ×2 (15:03)
[2018-12-09] MEDS ORDERED: BISMUTH SUBSALICYLATE 524 MG/30 ML UD PO PRN (15:03)
--- NOTE | 2018-12-09 15:29 | EKG ---
Test Reason : Blood Pressure : / mmHG Vent. Rate : 074 BPM Atrial Rate : 074 BPM P-R Int : 144 ms QRS Dur : 092 ms QT Int : 390 ms P-R-T Axes : 069 025 039 degrees QTc Int : 432 ms NORMAL SINUS RHYTHM MINIMAL VOLTAGE CRITERIA FOR LVH, MAY BE NORMAL VARIANT BORDERLINE ECG WHEN COMPARED WITH ECG OF 02-SEP-2017 01:01, NO SIGNIFICANT CHANGE WAS FOUND Confirmed by MD TERRANCE, RHIANNA ([id number]) on 12/09/2018 3:28:53 PM Referred By: Confirmed By:RHIANNA CARLOS MD
[2018-12-09] MEDS: guaiFENesin 200 MG/10 ML 10 ML UNIT-DOSE CUPS PO SCH ×2 (17:37→22:18)
[2018-12-09] MEDS: chlordiazePOXIDE HCL 25 MG CAPSULE PO SCH ×2 (17:38→22:18)
[2018-12-09] MEDS: THIAMINE HCL 100 MG TABLET (FP) PO SCH (22:18)
[2018-12-09] MEDS: BACITRACIN 0.9 GM PACKET TP SCH (22:18)
[2018-12-10] MEDS: chlordiazePOXIDE HCL 25 MG CAPSULE PO SCH ×4 (05:18→22:16)
[2018-12-10] MEDS: guaiFENesin 200 MG/10 ML 10 ML UNIT-DOSE CUPS PO SCH ×4 (05:18→21:48)
[2018-12-10] MEDS: METHOCARBAMOL 500 MG TABLET PO PRN (05:18)
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
[2018-12-10 09:57] LABS: HEMATOCRIT 36.5 % (35.4-49); HEMOGLOBIN 12.4 GM/dL (11.7-16.9); MCH 34.5 pg (25.7-33.7); MCHC 33.9 g/dl (32.0-35.9); MEAN CELL VOLUME 101.8 fl (80-96); PLATELET COUNT 172 K/MM3 (134-434); RBC 3.59 M/mm3 (4.00-5.60); RDW 14.2 % (11.9-15.9); WHITE BLOOD COUNT 3.1 K/mm3 (4.0-10.0)
[2018-12-10 10:04] LABS: ALBUMIN 3.7 g/dl (3.4-5.0); BILIRUBIN,TOTAL 0.7 mg/dL (0.2-1); BLOOD UREA NITROGEN 8.9 mg/dL (7-18); CALCIUM 8.5 mg/dL (8.5-10.1); TOT PROT 7.2 g/dl (6.4-8.2)
[2018-12-10] MEDS: PRENATAL VITAMINS W/ FOLIC ACID TABLET (FP) PO SCH (10:10)
[2018-12-10] MEDS: BACITRACIN 0.9 GM PACKET TP SCH ×2 (10:10→21:48)
[2018-12-10] MEDS: hydrOXYzine PAMOATE 50 MG CAPSULE (FP) PO PRN ×3 (10:11→21:50)
--- NOTE | 2018-12-10 10:50 | PN ---
[facility] CIWA - CIWA Score Nausea/Vomitin-Mild Nausea/No Vomiting Muscle Tremors: 2 Anxiety: 2 Agitation: 2 Paroxysmal Sweats: No Perspiration Orientation: 0-Oriented Tacttile Disturbances: 1-Very Mild Itch/Numbness Auditory Disturbances: 0-None Visual Disturbances: 0-None Headache: 2-Mild CIWA-Ar Total Score: 10 S Progress Note (SOAP) Subjective: alert,irritable,anxious,interrupted sleep,tremor,nausea Objective: 12/10/18 10:46 Vital Signs Temperature 98.6 F 12/10/18 09:29 Pulse Rate 77 12/10/18 09:29 Respiratory Rate 18 12/10/18 09:29 Blood Pressure 107/73 12/10/18 09:29 O2 Sat by Pulse Oximetry (%) 12/10/18 12/10/18 08:00 08:00 WBC 3.1 L RBC 3.59 L Hgb 12.4 Hct 36.5 MCV 101.8 H MCHC 33.9 RDW 14.2 Plt Count 172 Sodium 139 Potassium 4.0 Chloride 102 Carbon Dioxide 29 Anion Gap 8 BUN 8.9 Creatinine 1.0 12/10/18 10:47 labs pending 12/10/18 10:47 Laboratory Last Values WBC 3.1 K/mm3 (4.0-10.0) L 12/10/18 08:00 RBC 3.59 M/mm3 (4.00-5.60) L 12/10/18 08:00 Hgb 12.4 GM/dL (11.7-16.9) 12/10/18 08:00 Hct 36.5 % (35.4-49) 12/10/18 08:00 MCV 101.8 fl (80-96) H 12/10/18 08:00 MCH 34.5 pg (25.7-33.7) H 12/10/18 08:00 MCHC 33.9 g/dl (32.0-35.9) 12/10/18 08:00 RDW 14.2 % (11.9-15.9) 12/10/18 08:00 Plt Count 172 K/MM3 (134-434) 12/10/18 08:00 MPV 9.0 fl (7.5-11.1) 12/10/18 08:00 Sodium 139 mmol/L (136-145) 12/10/18 08:00 Potassium 4.0 mmol/L (3.5-5.1) 12/10/18 08:00 Chloride 102 mmol/L (98-107) 12/10/18 08:00 Carbon Dioxide 29 mmol/L (21-32) 12/10/18 08:00 Anion Gap 8 MMOL/L (8-16) 12/10/18 08:00 BUN 8.9 mg/dL (7-18) 12/10/18 08:00 Creatinine 1.0 mg/dL (0.55-1.3) 12/10/18 08:00 Est GFR (CKD-EPI)AfAm 100.55 12/10/18 08:00 Est GFR (CKD-EPI)NonAf 86.76 12/10/18 08:00 Random Glucose 131 mg/dL (74-106) H 12/10/18 08:00 Calcium 8.5 mg/dL (8.5-10.1) 12/10/18 08:00 Total Bilirubin 0.7 mg/dL (0.2-1) 12/10/18 08:00 AST 53 U/L (15-37) H 12/10/18 08:00 ALT 54 U/L (13-61) 12/10/18 08:00 Alkaline Phosphatase 59 U/L (45-117) 12/10/18 08:00 Total Protein 7.2 g/dl (6.4-8.2) 12/10/18 08:00 Albumin 3.7 g/dl (3.4-5.0) 12/10/18 08:00 HIV 1&2 Antibody Screen Negative 12/10/18 08:00 HIV P24 Antigen Negative 12/10/18 08:00 Assessment: 12/10/18 10:48 withdrawal symptom Plan: continue detox librium regimen,glucose 131,ast 53,fasting glucoes in am
[2018-12-10] MEDS ORDERED: PNEUMOC 13-VAL CONJ-DIP CRM/PF 0.5 ML DISP.SYRIN IM ONE (12:00)
[2018-12-10] MEDS: THIAMINE HCL 100 MG TABLET (FP) PO SCH (21:48)
[2018-12-11] MEDS: guaiFENesin 200 MG/10 ML 10 ML UNIT-DOSE CUPS PO SCH ×2 (05:21→09:30)
[2018-12-11] MEDS: chlordiazePOXIDE HCL 25 MG CAPSULE PO SCH ×4 (05:23→22:09)
[2018-12-11] MEDS: hydrOXYzine PAMOATE 50 MG CAPSULE (FP) PO PRN ×3 (07:27→17:34)
[2018-12-11] MEDS: METHOCARBAMOL 500 MG TABLET PO PRN ×2 (07:29→12:37)
--- NOTE | 2018-12-11 10:08 | PN ---
S CIWA - CIWA Score Nausea/Vomitin-Mild Nausea/No Vomiting Muscle Tremors: 1-None Visible, but [place] Anxiety: 2 Agitation: 2 Paroxysmal Sweats: No Perspiration Orientation: 0-Oriented Tacttile Disturbances: 1-Very Mild Itch/Numbness Auditory Disturbances: 0-None Visual Disturbances: 0-None Headache: 2-Mild CIWA-Ar Total Score: 9 BHS Progress Note (SOAP) Subjective: alert,irritable,anxious,interrupted sleep,pain in the body and back Objective: 12/11/18 10:06 Vital Signs Temperature 97.7 F 12/11/18 06:22 Pulse Rate 69 12/11/18 06:22 Respiratory Rate 18 12/11/18 06:22 Blood Pressure 122/77 12/11/18 06:22 O2 Sat by Pulse Oximetry (%) Assessment: 12/11/18 10:07 withdrawal symptom Plan: continue detox librium regimen,fasting glucose pending
[2018-12-11] MEDS: PRENATAL VITAMINS W/ FOLIC ACID TABLET (FP) PO SCH (10:54)
[2018-12-11] MEDS: BACITRACIN 0.9 GM PACKET TP SCH ×2 (10:58→22:10)
[2018-12-11] MEDS: MELATONIN 5 MG TABLETS PO PRN (22:09)
[2018-12-11] MEDS: THIAMINE HCL 100 MG TABLET (FP) PO SCH (22:09)
[2018-12-12] MEDS ORDERED: chlordiazePOXIDE HCL 10 MG CAPSULE PO PRN
[2018-12-12] MEDS: chlordiazePOXIDE HCL 10 MG CAPSULE PO SCH ×4 (05:36→22:08)
--- NOTE | 2018-12-12 10:06 | PN ---
S CIWA - CIWA Score Nausea/Vomitin-Mild Nausea/No Vomiting Muscle Tremors: 1-None Visible, but [place] Anxiety: 2 Agitation: 2 Paroxysmal Sweats: No Perspiration Orientation: 0-Oriented Tacttile Disturbances: 1-Very Mild Itch/Numbness Auditory Disturbances: 0-None Visual Disturbances: 0-None Headache: 1-Very Mild CIWA-Ar Total Score: 8 BHS Progress Note (SOAP) Subjective: alert,irritable,anxious,interrupted sleep Objective: 12/12/18 10:05 Vital Signs Temperature 98.2 F 12/12/18 09:03 Pulse Rate 74 12/12/18 09:03 Respiratory Rate 16 12/12/18 09:03 Blood Pressure 126/76 12/12/18 09:03 O2 Sat by Pulse Oximetry (%) fasting glucose is 115 Assessment: 12/12/18 10:05 withdrawal symptom Plan: continue detox librium regimen,fasting glucose 115,advise diet modification,bgm bid
[2018-12-12] MEDS: PRENATAL VITAMINS W/ FOLIC ACID TABLET (FP) PO SCH (10:46)
[2018-12-12] MEDS: BACITRACIN 0.9 GM PACKET TP SCH ×2 (10:46→22:10)
[2018-12-12] MEDS: hydrOXYzine PAMOATE 50 MG CAPSULE (FP) PO PRN ×3 (10:48→22:10)
[2018-12-12] MEDS: METHOCARBAMOL 500 MG TABLET PO PRN (11:43)
[2018-12-12] MEDS: THIAMINE HCL 100 MG TABLET (FP) PO SCH (22:08)
[2018-12-12] MEDS: MELATONIN 5 MG TABLETS PO PRN (22:09)
[2018-12-13] MEDS: chlordiazePOXIDE HCL 10 MG CAPSULE PO SCH ×2 (05:23→18:09)
--- NOTE | 2018-12-13 09:30 | PN ---
[facility] CIWA - CIWA Score Nausea/Vomitin-No Nausea/No Vomiting Muscle Tremors: 1-None Visible, but [place] Anxiety: 2 Agitation: 2 Paroxysmal Sweats: No Perspiration Orientation: 0-Oriented Tacttile Disturbances: 1-Very Mild Itch/Numbness Auditory Disturbances: 0-None Visual Disturbances: 0-None Headache: 1-Very Mild CIWA-Ar Total Score: 7 BHS Progress Note (SOAP) Subjective: alert,irritable,anxious,interrupted sleep Objective: 12/13/18 09:28 Vital Signs Temperature 97.7 F 12/12/18 21:38 Pulse Rate 70 12/12/18 21:38 Respiratory Rate 18 12/13/18 03:30 Blood Pressure 119/72 12/12/18 21:38 O2 Sat by Pulse Oximetry (%) 12/13/18 09:29 Laboratory Results - last 24 hr 12/12/18 12/13/18 16:31 05:24 POC Glucometer 111 95 Assessment: 12/13/18 09:29 withdrawal symptom Plan: continue detox librium regimen,discharge in am
[2018-12-13] MEDS: BACITRACIN 0.9 GM PACKET TP SCH ×2 (10:31→22:43)
[2018-12-13] MEDS: PRENATAL VITAMINS W/ FOLIC ACID TABLET (FP) PO SCH (10:31)
[2018-12-13] MEDS: hydrOXYzine PAMOATE 50 MG CAPSULE (FP) PO PRN ×3 (10:32→19:38)
[2018-12-13] MEDS: THIAMINE HCL 100 MG TABLET (FP) PO SCH (22:04)
[2018-12-13] MEDS: MELATONIN 5 MG TABLETS PO PRN (22:04)
[2018-12-14] MEDS ORDERED: chlordiazePOXIDE HCL 10 MG CAPSULE PO ONE (05:00)
[2018-12-14] MEDS: hydrOXYzine PAMOATE 50 MG CAPSULE (FP) PO PRN ×2 (07:09→12:33)
--- NOTE | 2018-12-14 09:07 | DS ---
[facility] Detox Discharge Summary Admission Date: 12/09/18 Discharge Date: 12/14/18 - History Present History: Alcohol Dependence - Physical Exam Results Vital Signs: Vital Signs Temperature 97.7 F 12/14/18 06:00 Pulse Rate 65 12/14/18 06:00 Respiratory Rate 18 12/14/18 06:00 Blood Pressure 119/74 12/14/18 06:00 O2 Sat by Pulse Oximetry (%) - Treatment Hospital Course: Detox Protocol Followed, Detoxed Safely, Responded well, Discharged Condition Good, Rehab Referral Accepted - Medication Discharge Medications: Ambulatory Orders NK [No Known Home Medication] 12/09/18 - Diagnosis (1) Alcohol dependence with uncomplicated withdrawal Current Visit: Yes Status: Chronic (2) Unspecified nystagmus Current Visit: Yes Status: Chronic (3) Cough Current Visit: Yes Status: Chronic (4) Cocaine dependence Current Visit: No Status: Chronic Qualifiers: Substance use status: in withdrawal Qualified Code(s): F14.23 - Cocaine dependence with withdrawal (5) Depression Current Visit: No Status: Suspected Qualifiers: Depression Type: unspecified Qualified Code(s): F32.9 - Major depressive disorder, single episode, unspecified - AMA Did Patient Leave Against Medical Advice: No
[2018-12-14] MEDS: PRENATAL VITAMINS W/ FOLIC ACID TABLET (FP) PO SCH (10:43)
[2018-12-14] MEDS: BACITRACIN 0.9 GM PACKET TP SCH (10:43)
[2018-12-14] MEDS: METHOCARBAMOL 500 MG TABLET PO PRN (10:44)
[2018-12-14 17:13] VITALS: BP 121/77; PULSE 96; TEMP 98.2
== END 2018-12-14 17:46 | disposition other institution (70) | DRG 774 ==
LOC: YASAS 11:51 → Y6N 15:31
PROVIDERS: ADMIT Allergy & Immunology; ATTEND Allergy & Immunology
PROC: HZ2ZZZZ Detoxification Services for Substance Abuse Treatment (ICD-10-PCS; principal; 2018-12-09)
DX: F10.230 Alcohol dependence with withdrawal, uncomplicated (principal); F14.23 Cocaine dependence with withdrawal; F15.10 Other stimulant abuse, uncomplicated; F19.280 Other psychoactive substance dependence with psychoactive substance-induced anxiety disorder; F19.282 Other psychoactive substance dependence with psychoactive substance-induced sleep disorder; H55.00 Unspecified nystagmus; F32.9 Major depressive disorder, single episode, unspecified; F41.8 Other specified anxiety disorders; R05 Cough; R76.11 Nonspecific reaction to tuberculin skin test without active tuberculosis
CPT/HCPCS: 36415; 80053; 82947; 82962; 85027; 87389; 93005; 93010

== ENCOUNTER 2018-12-14 18:00 | Inpatient (IN) | payer OTHER ==
[2018-12-14] MEDS ORDERED: MAGNESIUM CITRATE 300 ML BOTTLE PO PRN (19:51)
[2018-12-14] MEDS ORDERED: guaiFENesin 200 MG/10 ML 10 ML UNIT-DOSE CUPS PO PRN (19:51)
[2018-12-14] MEDS ORDERED: MAGNESIUM HYDROX 2400MG/30ML ORAL SUSPENSION 30 ML CUP PO PRN (19:51)
[2018-12-14] MEDS ORDERED: LOPERAMIDE HCL 2 MG CAPSULE PO PRN (19:51)
[2018-12-14] MEDS ORDERED: P-EPHED 60MG/TRIPROLIDI 2.5MG TABLET PO PRN (19:51)
[2018-12-14] MEDS ORDERED: ACETAMINOPHEN 325 MG TABLET (FP) PO PRN (19:51)
[2018-12-14] MEDS ORDERED: MAG HYDROX/AL HYDROX/SIMETH 30 ML UNIT-DOSE CUP PO PRN (19:51)
[2018-12-14] MEDS ORDERED: MENTHOL/PHENOL 1 EACH UD MM PRN (19:51)
[2018-12-14] MEDS: THIAMINE HCL 100 MG TABLET (FP) PO SCH (21:30)
[2018-12-14] MEDS: hydrOXYzine PAMOATE 50 MG CAPSULE (FP) PO PRN (21:30)
[2018-12-14] MEDS: MELATONIN 5 MG TABLETS PO PRN (21:30)
[2018-12-14] MEDS: IBUPROFEN 400 MG TABLET (FP) PO PRN (23:00)
[2018-12-15] MEDS: PRENATAL VITAMINS W/ FOLIC ACID TABLET (FP) PO SCH (10:04)
[2018-12-15] MEDS: hydrOXYzine PAMOATE 50 MG CAPSULE (FP) PO PRN ×3 (10:04→21:45)
[2018-12-15] MEDS: IBUPROFEN 400 MG TABLET (FP) PO PRN (10:05)
[2018-12-15] MEDS: THIAMINE HCL 100 MG TABLET (FP) PO SCH (21:44)
[2018-12-15] MEDS: MELATONIN 5 MG TABLETS PO PRN (21:45)
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
[2018-12-16] MEDS: hydrOXYzine PAMOATE 50 MG CAPSULE (FP) PO PRN ×2 (09:33→14:41)
[2018-12-16] MEDS: PRENATAL VITAMINS W/ FOLIC ACID TABLET (FP) PO SCH (09:33)
[2018-12-16] MEDS: busPIRone HCL 10 MG TABLET (FP) PO SCH ×2 (13:35→21:14)
[2018-12-16] MEDS: MELATONIN 5 MG TABLETS PO PRN (21:14)
[2018-12-16] MEDS: THIAMINE HCL 100 MG TABLET (FP) PO SCH (21:14)
[2018-12-17] MEDS: hydrOXYzine PAMOATE 50 MG CAPSULE (FP) PO PRN ×2 (10:09→21:09)
[2018-12-17] MEDS: PRENATAL VITAMINS W/ FOLIC ACID TABLET (FP) PO SCH (10:09)
[2018-12-17] MEDS: busPIRone HCL 10 MG TABLET (FP) PO SCH ×2 (11:39→21:08)
[2018-12-17] MEDS: THIAMINE HCL 100 MG TABLET (FP) PO SCH (21:08)
[2018-12-17] MEDS: MELATONIN 5 MG TABLETS PO PRN (21:08)
[2018-12-18] MEDS: busPIRone HCL 10 MG TABLET (FP) PO SCH ×2 (09:34→21:34)
[2018-12-18] MEDS: hydrOXYzine PAMOATE 50 MG CAPSULE (FP) PO PRN ×2 (09:34→21:34)
[2018-12-18] MEDS: PRENATAL VITAMINS W/ FOLIC ACID TABLET (FP) PO SCH (09:34)
--- NOTE | 2018-12-18 09:53 | PN ---
[facility] Progress Note Note: Patient with elevated random blood glucose for 3 days. Asymptomatic; will check blood glucose x 3days.
[2018-12-18] MEDS ORDERED: PT OWN MED DRAWER 7, Y5N ONE (19:05)
[2018-12-18] MEDS: MELATONIN 5 MG TABLETS PO PRN (21:34)
[2018-12-18] MEDS: THIAMINE HCL 100 MG TABLET (FP) PO SCH (21:34)
[2018-12-19] MEDS ORDERED: PT OWN MED DRAWER 7, Y5N ONE ×2 (08:34→19:21)
[2018-12-19] MEDS: PRENATAL VITAMINS W/ FOLIC ACID TABLET (FP) PO SCH (10:22)
[2018-12-19] MEDS: busPIRone HCL 10 MG TABLET (FP) PO SCH ×2 (10:22→21:09)
[2018-12-19] MEDS: hydrOXYzine PAMOATE 50 MG CAPSULE (FP) PO PRN ×2 (10:23→21:10)
[2018-12-19] MEDS: THIAMINE HCL 100 MG TABLET (FP) PO SCH (21:09)
[2018-12-19] MEDS: MELATONIN 5 MG TABLETS PO PRN (21:09)
[2018-12-20] MEDS ORDERED: PT OWN MED DRAWER 7, Y5N ONE (08:48)
[2018-12-20] MEDS: PRENATAL VITAMINS W/ FOLIC ACID TABLET (FP) PO SCH (10:30)
[2018-12-20] MEDS: busPIRone HCL 10 MG TABLET (FP) PO SCH ×2 (10:30→21:38)
[2018-12-20] MEDS: hydrOXYzine PAMOATE 50 MG CAPSULE (FP) PO PRN ×2 (10:32→21:39)
[2018-12-20] MEDS: THIAMINE HCL 100 MG TABLET (FP) PO SCH (21:38)
[2018-12-20] MEDS: MELATONIN 5 MG TABLETS PO PRN (21:38)
[2018-12-21] MEDS: busPIRone HCL 10 MG TABLET (FP) PO SCH ×2 (10:27→21:08)
[2018-12-21] MEDS: PRENATAL VITAMINS W/ FOLIC ACID TABLET (FP) PO SCH (10:27)
[2018-12-21] MEDS: hydrOXYzine PAMOATE 50 MG CAPSULE (FP) PO PRN (10:28)
[2018-12-21] MEDS: MELATONIN 5 MG TABLETS PO PRN (21:08)
[2018-12-21] MEDS: THIAMINE HCL 100 MG TABLET (FP) PO SCH (21:08)
[2018-12-22] MEDS: busPIRone HCL 10 MG TABLET (FP) PO SCH ×2 (10:46→21:31)
[2018-12-22] MEDS: PRENATAL VITAMINS W/ FOLIC ACID TABLET (FP) PO SCH (10:46)
[2018-12-22] MEDS: MELATONIN 5 MG TABLETS PO PRN (21:31)
[2018-12-22] MEDS: THIAMINE HCL 100 MG TABLET (FP) PO SCH (21:31)
[2018-12-23] MEDS: PRENATAL VITAMINS W/ FOLIC ACID TABLET (FP) PO SCH (09:42)
[2018-12-23] MEDS: busPIRone HCL 10 MG TABLET (FP) PO SCH ×2 (09:42→21:09)
[2018-12-23] MEDS: MELATONIN 5 MG TABLETS PO PRN (21:09)
[2018-12-23] MEDS: THIAMINE HCL 100 MG TABLET (FP) PO SCH (21:09)
--- NOTE | 2018-12-24 06:31 | PN ---
[facility] Progress Note Note: Patient is scheduled for discharge today. Scripts for 30 days supply of Buspar 10 mg/bid is electronically transmitted to [facility] at [address] , [place] [address]
[2018-12-24 07:10] VITALS: BP 126/93; PULSE 73; TEMP 98
--- NOTE | 2018-12-24 08:59 | DS ---
[facility] Rehab Discharge Summary - [facility] Rehab Discharge Summary Admission Date: 12/14/18 Discharge Date: 12/24/18 - History Present History: Alcohol dependence - Discharge Physical Exam Vital Signs: Vital Signs Temperature 98 F 12/24/18 07:09 Pulse Rate 73 12/24/18 07:09 Respiratory Rate 18 12/24/18 07:09 Blood Pressure 126/93 12/24/18 07:09 O2 Sat by Pulse Oximetry (%) Pertinent Admission Physical Exam Findings: ROS: denies etoh cravings, sweating and shakes. PE: alert and oriented x 3 skin warm and dry +perrla, eoms intact bl car s1s2, rrr resp cta bl ext no swelling, no tremors - Treatment Discharge Condition: Discharge condition good Hospital Course: Patient completed rehab today for ETOH dependence. Patient states he accomplished all rehab goals, able to identify triggers and positive coping mechanisms. Patient attended groups and actively participated in his recovery. Aftercare arranged for [facility], appointment date 12/26/18. Patient d/c medically stable and denies SI/HI. Laboratory Tests 12/18/18 12/19/18 12/20/18 11:49 06:01 05:58 POC Glucometer 102 105 122 12/21/18 06:01 POC Glucometer 83 Ambulatory Orders Buspirone HCl [Buspar -] 10 mg PO BID #60 tablet 12/24/18 - Medication Discharge Medications: Ambulatory Orders Buspirone HCl [Buspar -] 10 mg PO BID #60 tablet 12/24/18 - Medication-Assisted Treatment (MAT) Medication-Assisted Treatment (MAT): No - Discharge Instructions Diet, activity, other medical instructions: Diet: Activity: Other medical instructions: - Follow-up Referral Minutes to complete discharge: 30 - AMA Did Patient Leave Against Medical Advice: No
== END 2018-12-24 09:14 | disposition home or self-care (01) | DRG 772 ==
LOC: YASAS 18:00 → Y3W 18:01
PROVIDERS: ADMIT Neuromusculoskeletal Medicine & OMM; ATTEND Neuromusculoskeletal Medicine & OMM
PROC: HZ42ZZZ Group Counseling for Substance Abuse Treatment, Cognitive-Behavioral (ICD-10-PCS; principal; 2018-12-14)
DX: F10.20 Alcohol dependence, uncomplicated (principal); F14.20 Cocaine dependence, uncomplicated; F19.280 Other psychoactive substance dependence with psychoactive substance-induced anxiety disorder; F19.282 Other psychoactive substance dependence with psychoactive substance-induced sleep disorder; R76.11 Nonspecific reaction to tuberculin skin test without active tuberculosis
CPT/HCPCS: 82962

== ENCOUNTER 2019-01-09 15:59 | Inpatient (IN) | payer OTHER ==
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
[2019-01-09] MEDS ORDERED: P-EPHED 60MG/TRIPROLIDI 2.5MG TABLET PO PRN (22:46)
[2019-01-09] MEDS ORDERED: MAGNESIUM HYDROX 2400MG/30ML ORAL SUSPENSION 30 ML CUP PO PRN (22:46)
[2019-01-09] MEDS ORDERED: DICYCLOMINE HCL 10 MG CAPSULE PO PRN (22:46)
[2019-01-09] MEDS ORDERED: MAGNESIUM CITRATE 300 ML BOTTLE PO PRN (22:46)
[2019-01-09] MEDS ORDERED: IBUPROFEN 400 MG TABLET (FP) PO PRN (22:46)
[2019-01-09] MEDS ORDERED: BISMUTH SUBSALICYLATE 524 MG/30 ML UD PO PRN (22:46)
[2019-01-09] MEDS ORDERED: guaiFENesin 200 MG/10 ML 10 ML UNIT-DOSE CUPS PO PRN (22:46)
[2019-01-09] MEDS ORDERED: ACETAMINOPHEN 325 MG TABLET (FP) PO PRN ×2 (22:46)
[2019-01-09] MEDS ORDERED: METHOCARBAMOL 500 MG TABLET PO PRN (22:46)
[2019-01-09] MEDS ORDERED: MAG HYDROX/AL HYDROX/SIMETH 30 ML UNIT-DOSE CUP PO PRN (22:46)
[2019-01-09] MEDS ORDERED: MENTHOL/PHENOL 1 EACH UD MM PRN (22:46)
[2019-01-09] MEDS ORDERED: ONDANSETRON *ODT* 4 MG TABLET SL PRN (22:46)
[2019-01-09 23:33] VITALS: BMI 28.9
[2019-01-10] MEDS: hydrOXYzine PAMOATE 25 MG CAPSULE (FP) PO PRN ×2 (00:41→20:10)
[2019-01-10] MEDS ORDERED: chlordiazePOXIDE HCL 25 MG CAPSULE PO PRN (06:30)
[2019-01-10] MEDS: chlordiazePOXIDE HCL 25 MG CAPSULE PO SCH ×4 (06:52→22:04)
[2019-01-10 09:40] LABS: ALBUMIN 3.5 g/dl (3.4-5.0); BILIRUBIN,TOTAL 0.4 mg/dL (0.2-1); BLOOD UREA NITROGEN 9.4 mg/dL (7-18); CREATININE 0.9 mg/dL (0.55-1.3); HEMATOCRIT 34.4 % (35.4-49); HEMOGLOBIN 11.6 GM/dL (11.7-16.9); MCH 34.1 pg (25.7-33.7); MCHC 33.8 g/dl (32.0-35.9); MEAN CELL VOLUME 101.1 fl (80-96); PLATELET COUNT 116 K/MM3 (134-434); POTASSIUM 3.4 mmol/L (3.5-5.1); RDW 13.4 % (11.9-15.9); TOT PROT 6.6 g/dl (6.4-8.2)
--- NOTE | 2019-01-10 10:21 | PN ---
S CIWA - CIWA Score Nausea/Vomitin-No Nausea/No Vomiting Muscle Tremors: 3 Anxiety: 3 Agitation: 3 Paroxysmal Sweats: 2 Orientation: 0-Oriented Tacttile Disturbances: 0-None Auditory Disturbances: 0-None Visual Disturbances: 0-None Headache: 0-None Present CIWA-Ar Total Score: 11 [facility] Progress Note (SOAP) Subjective: chills sweats body aches tired interrupted sleep Objective: 01/10/19 10:20 Vital Signs Temperature 97.9 F 01/10/19 06:23 Pulse Rate 88 01/10/19 06:23 Respiratory Rate 18 01/10/19 06:23 Blood Pressure 123/75 01/10/19 06:23 O2 Sat by Pulse Oximetry (%) Laboratory Tests 01/10/19 01/10/19 08:00 08:00 WBC 4.0 RBC 3.40 L Hgb 11.6 L Hct 34.4 L MCV 101.1 H MCH 34.1 H MCHC 33.8 RDW 13.4 Plt Count 116 L D MPV 10.0 D Sodium 140 Potassium 3.4 L Chloride 108 H Carbon Dioxide 23 Anion Gap 9 BUN 9.4 Creatinine 0.9 Est GFR (CKD-EPI)AfAm 114.21 Est GFR (CKD-EPI)NonAf 98.54 Random Glucose 114 H Calcium 8.0 L Total Bilirubin 0.4 AST 60 H ALT 53 Alkaline Phosphatase 48 Total Protein 6.6 Albumin 3.5 labs noted mild hypokalemia noted 3.4 will order kdur aaox3 lying in bed no acute distress Assessment: 01/10/19 10:21 withdrawal sx Plan: continue detox increase fluids kdur 20meq x 3 days
[2019-01-10] MEDS: PRENATAL VITAMINS W/ FOLIC ACID TABLET (FP) PO SCH (10:30)
[2019-01-10] MEDS: POTASSIUM CHLORIDE TABS 20 MEQ TABLET.ER (FP) PO SCH (10:30)
--- NOTE | 2019-01-10 14:54 | CONSULT ---
[facility] Psychiatric Consult - Data Date of interview: 01/10/19 Identifying data: [employer] Machine Tender approached patient for psychiatric consultation but patient refused to see radio news writer. Patient stated, " I don't need to see psychiatry. I'm fine." Psychiatric consultation refused.
[2019-01-10] MEDS: THIAMINE HCL 100 MG TABLET (FP) PO SCH (21:26)
[2019-01-11] MEDS: chlordiazePOXIDE HCL 25 MG CAPSULE PO SCH ×4 (05:29→22:14)
[2019-01-11] MEDS: POTASSIUM CHLORIDE TABS 20 MEQ TABLET.ER (FP) PO SCH (10:18)
[2019-01-11] MEDS: hydrOXYzine PAMOATE 25 MG CAPSULE (FP) PO PRN ×2 (10:18→17:30)
[2019-01-11] MEDS: PRENATAL VITAMINS W/ FOLIC ACID TABLET (FP) PO SCH (10:18)
--- NOTE | 2019-01-11 11:41 | PN ---
S CIWA - CIWA Score Nausea/Vomitin-No Nausea/No Vomiting Muscle Tremors: 2 Anxiety: 2 Agitation: 2 Paroxysmal Sweats: 2 Orientation: 0-Oriented Tacttile Disturbances: 0-None Auditory Disturbances: 0-None Visual Disturbances: 0-None Headache: 0-None Present CIWA-Ar Total Score: 8 [facility] Progress Note (SOAP) Subjective: sweats interrupted sleep agitation Objective: 01/11/19 11:34 Vital Signs Temperature 98.1 F 01/11/19 09:48 Pulse Rate 75 01/11/19 09:48 Respiratory Rate 20 01/11/19 09:48 Blood Pressure 117/72 01/11/19 09:48 O2 Sat by Pulse Oximetry (%) Laboratory Tests 01/10/19 01/10/19 08:00 08:00 WBC 4.0 RBC 3.40 L Hgb 11.6 L Hct 34.4 L MCV 101.1 H MCH 34.1 H MCHC 33.8 RDW 13.4 Plt Count 116 L D MPV 10.0 D Sodium 140 Potassium 3.4 L Chloride 108 H Carbon Dioxide 23 Anion Gap 9 BUN 9.4 Creatinine 0.9 Est GFR (CKD-EPI)AfAm 114.21 Est GFR (CKD-EPI)NonAf 98.54 Random Glucose 114 H Calcium 8.0 L Total Bilirubin 0.4 AST 60 H ALT 53 Alkaline Phosphatase 48 Total Protein 6.6 Albumin 3.5 labs noted pt has been ordered potassium aaox3 ambulating no acute distress Assessment: 01/11/19 11:35 withdrawal sx Plan: continue detox increase fluids cbc and cmp ordered
[2019-01-11] MEDS: MELATONIN 5 MG TABLETS PO PRN (22:14)
[2019-01-11] MEDS: THIAMINE HCL 100 MG TABLET (FP) PO SCH (22:14)
[2019-01-12] MEDS ORDERED: chlordiazePOXIDE HCL 10 MG CAPSULE PO PRN
[2019-01-12] MEDS: chlordiazePOXIDE HCL 10 MG CAPSULE PO SCH ×4 (05:54→22:28)
[2019-01-12] MEDS: hydrOXYzine PAMOATE 25 MG CAPSULE (FP) PO PRN (06:40)
[2019-01-12] MEDS: POTASSIUM CHLORIDE TABS 20 MEQ TABLET.ER (FP) PO SCH (10:38)
[2019-01-12] MEDS: PRENATAL VITAMINS W/ FOLIC ACID TABLET (FP) PO SCH (10:42)
--- NOTE | 2019-01-12 13:17 | PN ---
[facility] CIWA - CIWA Score Nausea/Vomitin-No Nausea/No Vomiting Muscle Tremors: None Anxiety: 4-Mod. Anxious/Guarded Agitation: 0-Normal Activity Paroxysmal Sweats: No Perspiration Orientation: 0-Oriented Tacttile Disturbances: 2-Mild Itch/Numbness/Burn Auditory Disturbances: 0-None Visual Disturbances: 2-Mild Sensitivity Headache: 0-None Present CIWA-Ar Total Score: 8 S Progress Note (SOAP) Subjective: Diarrhea, Body Aches, Fatigue. Objective: PATIENT A & O X 3. IN NO ACUTE DISTRESS. 01/12/19 13:12 Vital Signs Temperature 97.4 F L 01/12/19 09:17 Pulse Rate 72 01/12/19 09:17 Respiratory Rate 16 01/12/19 09:17 Blood Pressure 101/71 01/12/19 09:17 O2 Sat by Pulse Oximetry (%) Laboratory Tests 01/10/19 01/10/19 08:00 08:00 WBC 4.0 RBC 3.40 L Hgb 11.6 L Hct 34.4 L MCV 101.1 H MCH 34.1 H MCHC 33.8 RDW 13.4 Plt Count 116 L D MPV 10.0 D Sodium 140 Potassium 3.4 L Chloride 108 H Carbon Dioxide 23 Anion Gap 9 BUN 9.4 Creatinine 0.9 Est GFR (CKD-EPI)AfAm 114.21 Est GFR (CKD-EPI)NonAf 98.54 Random Glucose 114 H Calcium 8.0 L Total Bilirubin 0.4 AST 60 H ALT 53 Alkaline Phosphatase 48 Total Protein 6.6 Albumin 3.5 LABS NOTED. Assessment: 01/12/19 13:13 WITHDRAWAL SYMPTOMS. HYPOCALCEMIA. ANEMIA. THROMBOCYTOPENIA. ELEVATED AST LEVEL. 01/12/19 13:14 Plan: CONTINUE DETOX. OS-HUMZA, 500 MG ORALLY BID FOR LOW CALCIUM LEVEL NOTED NO DETOX ADMISSION LABORATORY ASSESSMENT. CONTINUE K-DUR, 20 MEQ ORALLY DAILY FOR LOW POTASSIUM LEVEL NOTED ON DETOX ADMISSION LABORATORY ASSESSMENT. PATIENT IS CURRENTLY RECEIVING DAILY MVI CONTAINING B VITAMINS AND IRON WHILE ADMITTED FOR DETOX.
[2019-01-12] MEDS: CALCIUM 500MG/VIT-D 200 UNITS COMBO TABLET (FP) PO SCH ×2 (14:00→21:21)
[2019-01-12] MEDS: hydrOXYzine PAMOATE 50 MG CAPSULE (FP) PO PRN (15:26)
[2019-01-12] MEDS ORDERED: POTASSIUM CHLORIDE TABS 20 MEQ TABLET.ER (FP) PO ONE (15:33)
[2019-01-12] MEDS: THIAMINE HCL 100 MG TABLET (FP) PO SCH (21:21)
[2019-01-13] MEDS: chlordiazePOXIDE HCL 10 MG CAPSULE PO SCH ×2 (05:48→18:10)
[2019-01-13] MEDS: PRENATAL VITAMINS W/ FOLIC ACID TABLET (FP) PO SCH (10:04)
[2019-01-13] MEDS: CALCIUM 500MG/VIT-D 200 UNITS COMBO TABLET (FP) PO SCH ×2 (10:05→21:12)
[2019-01-13] MEDS: POTASSIUM CHLORIDE TABS 20 MEQ TABLET.ER (FP) PO SCH (10:05)
[2019-01-13] MEDS: hydrOXYzine PAMOATE 50 MG CAPSULE (FP) PO PRN ×2 (10:06→21:13)
--- NOTE | 2019-01-13 15:12 | PN ---
S CIWA - CIWA Score Nausea/Vomitin-No Nausea/No Vomiting Muscle Tremors: None Anxiety: 2 Agitation: 2 Paroxysmal Sweats: 2 Orientation: 0-Oriented Tacttile Disturbances: 0-None Auditory Disturbances: 0-None Visual Disturbances: 0-None Headache: 0-None Present CIWA-Ar Total Score: 6 [facility] Progress Note (SOAP) Subjective: Diarrhea, tremor, chills Objective: 01/13/19 15:06 Last Vital Signs Temp Pulse Resp BP Pulse Ox 98.1 F 78 16 126/77 01/13/19 13:37 01/13/19 13:37 01/13/19 13:37 01/13/19 13:37 Laboratory Tests 01/10/19 01/10/19 01/13/19 08:00 08:00 07:35 WBC 4.0 RBC 3.40 L Hgb 11.6 L Hct 34.4 L MCV 101.1 H MCH 34.1 H MCHC 33.8 RDW 13.4 Plt Count 116 L D MPV 10.0 D Sodium 140 Potassium 3.4 L 3.9 Chloride 108 H Carbon Dioxide 23 Anion Gap 9 BUN 9.4 Creatinine 0.9 Est GFR (CKD-EPI)AfAm 114.21 Est GFR (CKD-EPI)NonAf 98.54 Random Glucose 114 H Calcium 8.0 L Total Bilirubin 0.4 AST 60 H ALT 53 Alkaline Phosphatase 48 Total Protein 6.6 Albumin 3.5 Labs reviewed: glucose 114, AST 60, pancytopenia Assessment: 01/13/19 15:09 Withdrawal sxs Noted with mild transaminitis, mild hyperglycemia and pancytopenia Plan: Continue detox Encouraged PO water intake Patient scheduled for discharge tomorrow Mild transaminitis: most likely due to alcoholism, follow up with PCP for monitoring Mild hyperglycemia: denies dm, could be r/t withdrawal, follow up with PCP for monitoring Pancytopenia: most likely r/t chronic alcoholism, encouraged abstinence, follow up with PCP for management
[2019-01-13] MEDS: THIAMINE HCL 100 MG TABLET (FP) PO SCH (21:12)
[2019-01-13] MEDS: MELATONIN 5 MG TABLETS PO PRN (22:34)
[2019-01-14] MEDS ORDERED: chlordiazePOXIDE HCL 10 MG CAPSULE PO ONE (05:00)
--- NOTE | 2019-01-14 08:54 | DS ---
[facility] Detox Discharge Summary Admission Date: 01/09/19 Discharge Date: 01/14/19 - History Present History: Alcohol Dependence - Physical Exam Results Vital Signs: Vital Signs Temperature 98.1 F 01/14/19 06:38 Pulse Rate 91 H 01/14/19 06:38 Respiratory Rate 18 01/14/19 06:38 Blood Pressure 104/73 01/14/19 06:38 O2 Sat by Pulse Oximetry (%) Laboratory Tests 01/10/19 01/10/19 01/13/19 08:00 08:00 07:35 WBC 4.0 RBC 3.40 L Hgb 11.6 L Hct 34.4 L MCV 101.1 H MCH 34.1 H MCHC 33.8 RDW 13.4 Plt Count 116 L D MPV 10.0 D Sodium 140 Potassium 3.4 L 3.9 Chloride 108 H Carbon Dioxide 23 Anion Gap 9 BUN 9.4 Creatinine 0.9 Est GFR (CKD-EPI)AfAm 114.21 Est GFR (CKD-EPI)NonAf 98.54 Random Glucose 114 H Calcium 8.0 L Total Bilirubin 0.4 AST 60 H ALT 53 Alkaline Phosphatase 48 Total Protein 6.6 Albumin 3.5 today pt is aaox3 ambulating no acute distress - Treatment Hospital Course: Detox Protocol Followed, Detoxed Safely, Responded well, Discharged Condition Good, Rehab Referral Accepted Patient has Accepted a Rehab Referral to: pt referred to inpatient rehab - Medication Discharge Medications: Ambulatory Orders Buspirone HCl [Buspar -] 10 mg PO BID #60 tablet 12/24/18 - Diagnosis (1) Alcohol dependence with intoxication, uncomplicated Current Visit: Yes Status: Chronic (2) Anemia Current Visit: Yes Status: Acute (3) Elevated aspartate aminotransferase level Current Visit: Yes Status: Acute (4) Hypocalcemia Current Visit: Yes Status: Acute (5) Hypokalemia Current Visit: Yes Status: Acute (6) Thrombocytopenia Current Visit: Yes Status: Acute (7) Alcohol dependence with uncomplicated withdrawal Current Visit: Yes Status: Chronic (8) Elevated liver enzymes Current Visit: No Status: Acute (9) Insomnia Current Visit: No Status: Acute Qualifiers: Insomnia type: unspecified Qualified Code(s): G47.00 - Insomnia, unspecified (10) Substance-induced anxiety disorder Current Visit: No Status: Acute (11) Substance-induced sleep disorder Current Visit: No Status: Acute (12) Anxiety and depression Current Visit: No Status: Chronic (13) Cocaine dependence Current Visit: No Status: Chronic Qualifiers: Substance use status: in withdrawal Qualified Code(s): F14.23 - Cocaine dependence with withdrawal (14) Depressive disorder Current Visit: No Status: Suspected (15) Substance induced mood disorder Current Visit: No Status: Suspected (16) History of positive PPD Current Visit: No Status: Resolved
[2019-01-14 09:16] VITALS: BP 117/70; PULSE 66; TEMP 97.5
[2019-01-14] MEDS: CALCIUM 500MG/VIT-D 200 UNITS COMBO TABLET (FP) PO SCH (10:13)
[2019-01-14] MEDS: PRENATAL VITAMINS W/ FOLIC ACID TABLET (FP) PO SCH (10:13)
[2019-01-14] MEDS: hydrOXYzine PAMOATE 50 MG CAPSULE (FP) PO PRN (10:14)
== END 2019-01-14 12:14 | disposition other institution (70) | DRG 774 ==
LOC: YASAS 15:59 → Y6N 23:30
PROVIDERS: ADMIT Allergy & Immunology; ATTEND Allergy & Immunology
PROC: HZ2ZZZZ Detoxification Services for Substance Abuse Treatment (ICD-10-PCS; principal; 2019-01-09)
DX: F10.230 Alcohol dependence with withdrawal, uncomplicated (principal); F14.23 Cocaine dependence with withdrawal; F19.24 Other psychoactive substance dependence with psychoactive substance-induced mood disorder; F19.280 Other psychoactive substance dependence with psychoactive substance-induced anxiety disorder; F19.282 Other psychoactive substance dependence with psychoactive substance-induced sleep disorder; D64.9 Anemia, unspecified; D69.6 Thrombocytopenia, unspecified; D61.818 Other pancytopenia; E87.6 Hypokalemia; E83.51 Hypocalcemia; R74.0 Nonspecific elevation of levels of transaminase and lactic acid dehydrogenase [LDH]; R73.9 Hyperglycemia, unspecified; R76.11 Nonspecific reaction to tuberculin skin test without active tuberculosis; Z87.891 Personal history of nicotine dependence
CPT/HCPCS: 36415; 80053; 84132; 85027

== ENCOUNTER 2019-01-14 12:19 | Inpatient (IN) | payer OTHER ==
[2019-01-14] MEDS ORDERED: IBUPROFEN 400 MG TABLET (FP) PO PRN (13:31)
[2019-01-14] MEDS ORDERED: LOPERAMIDE HCL 2 MG CAPSULE PO PRN (13:31)
[2019-01-14] MEDS ORDERED: MAG HYDROX/AL HYDROX/SIMETH 30 ML UNIT-DOSE CUP PO PRN (13:31)
[2019-01-14] MEDS ORDERED: guaiFENesin 200 MG/10 ML 10 ML UNIT-DOSE CUPS PO PRN (13:31)
[2019-01-14] MEDS ORDERED: ACETAMINOPHEN 325 MG TABLET (FP) PO PRN (13:31)
[2019-01-14] MEDS ORDERED: P-EPHED 60MG/TRIPROLIDI 2.5MG TABLET PO PRN (13:31)
[2019-01-14] MEDS ORDERED: MAGNESIUM HYDROX 2400MG/30ML ORAL SUSPENSION 30 ML CUP PO PRN (13:31)
[2019-01-14] MEDS ORDERED: NICOTINE POLACRILEX 4 MG GUM BUC PRN (13:31)
[2019-01-14] MEDS ORDERED: MAGNESIUM CITRATE 300 ML BOTTLE PO PRN (13:31)
[2019-01-14] MEDS ORDERED: MENTHOL/PHENOL 1 EACH UD MM PRN (13:31)
--- NOTE | 2019-01-14 13:31 | HP ---
[facility] Rehab Assess/Revision - Admission History Admitted to Rehab from: [address] - Vital signs Vital Signs: Vital Signs Period Temp Pulse Resp BP Sys/Schmidt Pulse Ox Last 24 Hr 98.2 F 65 18 108/63 - Findings Detox History & Physical reviewed: Yes Concur with findings: Yes Inpatient Rehab Admission - Rehab Decision to Admit Inpatient rehab admission?: Yes - Initial Determination Are CD services needed?: Yes Free of communicable disease: Yes Not in need of hospitalization: Yes - Rehab Admission Criteria Previous failed treatment: Yes Poor recovery environment: Yes Comorbidities: Yes Lacks judgement: Yes Patient is meeting Inpatient Rehab admission criteria:: Yes
[2019-01-14] MEDS: THIAMINE HCL 100 MG TABLET (FP) PO SCH (21:47)
[2019-01-14] MEDS: hydrOXYzine PAMOATE 50 MG CAPSULE (FP) PO PRN (21:47)
[2019-01-14] MEDS: MELATONIN 5 MG TABLETS PO PRN (21:47)
[2019-01-15] MEDS: hydrOXYzine PAMOATE 50 MG CAPSULE (FP) PO PRN (06:21)
[2019-01-15] MEDS: PRENATAL VITAMINS W/ FOLIC ACID TABLET (FP) PO SCH (10:08)
[2019-01-15] MEDS: NICOTINE 21 MG/24 HOURS TOPICAL PATCH TD SCH (10:08)
[2019-01-15] MEDS: MELATONIN 5 MG TABLETS PO PRN (21:47)
[2019-01-15] MEDS: THIAMINE HCL 100 MG TABLET (FP) PO SCH (21:47)
[2019-01-16] MEDS: NICOTINE 21 MG/24 HOURS TOPICAL PATCH TD SCH (10:45)
[2019-01-16] MEDS: hydrOXYzine PAMOATE 50 MG CAPSULE (FP) PO PRN (11:04)
[2019-01-16] MEDS: PRENATAL VITAMINS W/ FOLIC ACID TABLET (FP) PO SCH (11:04)
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
[2019-01-16] MEDS: THIAMINE HCL 100 MG TABLET (FP) PO SCH (21:10)
[2019-01-16] MEDS: MELATONIN 5 MG TABLETS PO PRN (21:11)
[2019-01-16] MEDS: busPIRone HCL 10 MG TABLET (FP) PO SCH (21:11)
[2019-01-17] MEDS: busPIRone HCL 10 MG TABLET (FP) PO SCH ×2 (09:59→21:44)
[2019-01-17] MEDS: PRENATAL VITAMINS W/ FOLIC ACID TABLET (FP) PO SCH (09:59)
[2019-01-17] MEDS: hydrOXYzine PAMOATE 50 MG CAPSULE (FP) PO PRN ×2 (10:00→21:45)
[2019-01-17] MEDS: NICOTINE 21 MG/24 HOURS TOPICAL PATCH TD SCH (10:01)
[2019-01-17] MEDS: MELATONIN 5 MG TABLETS PO PRN (21:44)
[2019-01-17] MEDS: THIAMINE HCL 100 MG TABLET (FP) PO SCH (21:44)
[2019-01-18] MEDS: NICOTINE 21 MG/24 HOURS TOPICAL PATCH TD SCH (10:02)
[2019-01-18] MEDS: PRENATAL VITAMINS W/ FOLIC ACID TABLET (FP) PO SCH (10:03)
[2019-01-18] MEDS: busPIRone HCL 10 MG TABLET (FP) PO SCH ×2 (10:03→21:50)
[2019-01-18] MEDS: hydrOXYzine PAMOATE 50 MG CAPSULE (FP) PO PRN ×2 (10:03→21:51)
[2019-01-18] MEDS: THIAMINE HCL 100 MG TABLET (FP) PO SCH (21:50)
[2019-01-18] MEDS: MELATONIN 5 MG TABLETS PO PRN (21:52)
[2019-01-19] MEDS: NICOTINE 21 MG/24 HOURS TOPICAL PATCH TD SCH (09:51)
[2019-01-19] MEDS: PRENATAL VITAMINS W/ FOLIC ACID TABLET (FP) PO SCH (09:51)
[2019-01-19] MEDS: busPIRone HCL 10 MG TABLET (FP) PO SCH ×2 (09:51→21:31)
[2019-01-19] MEDS: hydrOXYzine PAMOATE 50 MG CAPSULE (FP) PO PRN (21:31)
[2019-01-19] MEDS: THIAMINE HCL 100 MG TABLET (FP) PO SCH (21:31)
[2019-01-19] MEDS: MELATONIN 5 MG TABLETS PO PRN (21:31)
[2019-01-20] MEDS: busPIRone HCL 10 MG TABLET (FP) PO SCH ×2 (09:01→21:12)
[2019-01-20] MEDS: PRENATAL VITAMINS W/ FOLIC ACID TABLET (FP) PO SCH (09:01)
[2019-01-20] MEDS: NICOTINE 21 MG/24 HOURS TOPICAL PATCH TD SCH (09:01)
[2019-01-20] MEDS: THIAMINE HCL 100 MG TABLET (FP) PO SCH (21:11)
[2019-01-20] MEDS: MELATONIN 5 MG TABLETS PO PRN (21:11)
[2019-01-20] MEDS: hydrOXYzine PAMOATE 50 MG CAPSULE (FP) PO PRN (21:12)
[2019-01-21] MEDS: PRENATAL VITAMINS W/ FOLIC ACID TABLET (FP) PO SCH (10:36)
[2019-01-21] MEDS: busPIRone HCL 10 MG TABLET (FP) PO SCH ×2 (10:37→21:23)
[2019-01-21] MEDS: NICOTINE 21 MG/24 HOURS TOPICAL PATCH TD SCH (10:37)
[2019-01-21] MEDS: THIAMINE HCL 100 MG TABLET (FP) PO SCH (21:23)
[2019-01-21] MEDS: hydrOXYzine PAMOATE 50 MG CAPSULE (FP) PO PRN (21:23)
[2019-01-21] MEDS: MELATONIN 5 MG TABLETS PO PRN (21:23)
[2019-01-22] MEDS: busPIRone HCL 10 MG TABLET (FP) PO SCH ×2 (10:02→21:16)
[2019-01-22] MEDS: NICOTINE 21 MG/24 HOURS TOPICAL PATCH TD SCH (10:02)
[2019-01-22] MEDS: PRENATAL VITAMINS W/ FOLIC ACID TABLET (FP) PO SCH (10:02)
[2019-01-22] MEDS: THIAMINE HCL 100 MG TABLET (FP) PO SCH (21:16)
[2019-01-22] MEDS: MELATONIN 5 MG TABLETS PO PRN (21:16)
[2019-01-22] MEDS: hydrOXYzine PAMOATE 50 MG CAPSULE (FP) PO PRN (21:16)
[2019-01-23 06:59] VITALS: BP 110/71; PULSE 75; TEMP 98
--- NOTE | 2019-01-23 08:40 | DS ---
[facility] Rehab Discharge Summary - [facility] Rehab Discharge Summary Admission Date: 01/14/19 Discharge Date: 01/23/19 - History Present History: Alcohol dependence, Cocaine dependence - Discharge Physical Exam Vital Signs: Vital Signs Temperature 98 F 01/23/19 06:59 Pulse Rate 75 01/23/19 06:59 Respiratory Rate 18 01/23/19 06:59 Blood Pressure 110/71 01/23/19 06:59 O2 Sat by Pulse Oximetry (%) - Treatment Discharge Condition: Discharge condition good Hospital Course: [facility] , [facility], awaiting bed at [place], [place] - Medication-Assisted Treatment (MAT) Medication-Assisted Treatment (MAT): No - Discharge Instructions Diet, activity, other medical instructions: Diet: Activity: Other medical instructions: - Diagnosis (1) Alcohol use disorder Current Visit: Yes Status: Chronic (2) Cocaine dependence Current Visit: Yes Status: Chronic Qualifiers: Substance use status: uncomplicated Qualified Code(s): F14.20 - Cocaine dependence, uncomplicated (3) Elevated aspartate aminotransferase level Current Visit: Yes Status: Acute (4) Anxiety and depression Current Visit: Yes Status: Chronic - Follow-up Referral Minutes to complete discharge: 20 - AMA Did Patient Leave Against Medical Advice: No
--- NOTE | 2019-01-23 08:45 | PN ---
[facility] Progress Note Note: Patient is discharged today. Script for 30 days supply of Buspar 10 mg/bid is electronically transmitted to [facility] at [address], [place] [address]
== END 2019-01-23 09:22 | disposition home or self-care (01) | DRG 772 ==
LOC: YASAS 12:19 → Y3W 12:20
PROVIDERS: ADMIT Neuromusculoskeletal Medicine & OMM; ATTEND Neuromusculoskeletal Medicine & OMM
PROC: HZ42ZZZ Group Counseling for Substance Abuse Treatment, Cognitive-Behavioral (ICD-10-PCS; principal; 2019-01-14)
DX: F10.20 Alcohol dependence, uncomplicated (principal); F14.20 Cocaine dependence, uncomplicated; F19.282 Other psychoactive substance dependence with psychoactive substance-induced sleep disorder; F19.280 Other psychoactive substance dependence with psychoactive substance-induced anxiety disorder; F41.8 Other specified anxiety disorders; F32.9 Major depressive disorder, single episode, unspecified; R74.0 Nonspecific elevation of levels of transaminase and lactic acid dehydrogenase [LDH]; Z87.891 Personal history of nicotine dependence

== ENCOUNTER 2019-02-14 14:32 | Inpatient (IN) | payer OTHER ==
[2019-02-14 17:43] VITALS: BMI 29.5
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
[2019-02-14] MEDS ORDERED: chlordiazePOXIDE HCL 25 MG CAPSULE PO PRN (20:49)
[2019-02-14] MEDS ORDERED: MAGNESIUM CITRATE 300 ML BOTTLE PO PRN (20:49)
[2019-02-14] MEDS ORDERED: hydrOXYzine PAMOATE 25 MG CAPSULE (FP) PO PRN (20:49)
[2019-02-14] MEDS ORDERED: ACETAMINOPHEN 325 MG TABLET (FP) PO PRN ×2 (20:49)
[2019-02-14] MEDS ORDERED: BISMUTH SUBSALICYLATE 524 MG/30 ML UD PO PRN (20:49)
[2019-02-14] MEDS ORDERED: MAGNESIUM HYDROX 2400MG/30ML ORAL SUSPENSION 30 ML CUP PO PRN (20:49)
[2019-02-14] MEDS ORDERED: IBUPROFEN 400 MG TABLET (FP) PO PRN (20:49)
[2019-02-14] MEDS ORDERED: MAG HYDROX/AL HYDROX/SIMETH 30 ML UNIT-DOSE CUP PO PRN (20:49)
[2019-02-14] MEDS ORDERED: MENTHOL/PHENOL 1 EACH UD MM PRN (20:49)
[2019-02-14] MEDS: chlordiazePOXIDE HCL 25 MG CAPSULE PO SCH (22:00)
[2019-02-14] MEDS: THIAMINE HCL 100 MG TABLET (FP) PO SCH (22:00)
[2019-02-15] MEDS: chlordiazePOXIDE HCL 25 MG CAPSULE PO SCH ×4 (06:34→21:59)
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
[2019-02-15] MEDS: busPIRone HCL 10 MG TABLET (FP) PO SCH ×2 (10:19→21:54)
[2019-02-15] MEDS: PRENATAL VITAMINS W/ FOLIC ACID TABLET (FP) PO SCH (10:19)
[2019-02-15 10:27] LABS: HEMATOCRIT 34.9 % (35.4-49); HEMOGLOBIN 11.7 GM/dL (11.7-16.9); MCH 33.7 pg (25.7-33.7); MCHC 33.6 g/dl (32.0-35.9); MEAN CELL VOLUME 100.2 fl (80-96); MEAN PLT VOLUME 9.3 fl (7.5-11.1); PLATELET COUNT 149 K/MM3 (134-434); RBC 3.48 M/mm3 (4.00-5.60); RDW 13.7 % (11.9-15.9); WHITE BLOOD COUNT 4.5 K/mm3 (4.0-10.0)
[2019-02-15 10:30] LABS: ALBUMIN 3.6 g/dl (3.4-5.0); BILIRUBIN,TOTAL 0.6 mg/dL (0.2-1); BLOOD UREA NITROGEN 10.2 mg/dL (7-18); CALCIUM 8.3 mg/dL (8.5-10.1); CREATININE 0.9 mg/dL (0.55-1.3); TOT PROT 7.1 g/dl (6.4-8.2)
--- NOTE | 2019-02-15 12:09 | PN ---
[facility] CIWA - CIWA Score Nausea/Vomitin-No Nausea/No Vomiting Muscle Tremors: 3 Anxiety: 3 Agitation: 3 Paroxysmal Sweats: 3 Orientation: 0-Oriented Tacttile Disturbances: 0-None Auditory Disturbances: 0-None Visual Disturbances: 0-None Headache: 0-None Present CIWA-Ar Total Score: 12 BHS Progress Note (SOAP) Subjective: sweats shakes body aches interrupted sleep Objective: 02/15/19 12:13 Vital Signs Temperature 98.6 F 02/15/19 09:28 Pulse Rate 84 02/15/19 09:28 Respiratory Rate 18 02/15/19 09:28 Blood Pressure 147/82 02/15/19 09:28 O2 Sat by Pulse Oximetry (%) Laboratory Tests 02/15/19 02/15/19 02/15/19 07:40 07:40 07:40 WBC 4.5 RBC 3.48 L Hgb 11.7 Hct 34.9 L MCV 100.2 H MCH 33.7 MCHC 33.6 RDW 13.7 Plt Count 149 D MPV 9.3 Sodium 137 Potassium 4.0 Chloride 102 Carbon Dioxide 29 Anion Gap 6 L BUN 10.2 Creatinine 0.9 Est GFR (CKD-EPI)AfAm 114.21 Est GFR (CKD-EPI)NonAf 98.54 Random Glucose 101 Calcium 8.3 L Total Bilirubin 0.6 AST 96 H ALT 78 H Alkaline Phosphatase 58 Total Protein 7.1 Albumin 3.6 RPR Titer Nonreactive HIV 1&2 Antibody Screen HIV P24 Antigen 02/15/19 07:40 WBC RBC Hgb Hct MCV MCH MCHC RDW Plt Count MPV Sodium Potassium Chloride Carbon Dioxide Anion Gap BUN Creatinine Est GFR (CKD-EPI)AfAm Est GFR (CKD-EPI)NonAf Random Glucose Calcium Total Bilirubin AST ALT Alkaline Phosphatase Total Protein Albumin RPR Titer HIV 1&2 Antibody Screen Negative HIV P24 Antigen Negative aaox3 ambulating no acute distress Assessment: 02/15/19 12:14 withdrawals Plan: continue detox
--- NOTE | 2019-02-15 13:28 | EKG ---
Test Reason : Blood Pressure : / mmHG Vent. Rate : 095 BPM Atrial Rate : 095 BPM P-R Int : 124 ms QRS Dur : 090 ms QT Int : 372 ms P-R-T Axes : 071 044 048 degrees QTc Int : 467 ms NORMAL SINUS RHYTHM MODERATE VOLTAGE CRITERIA FOR LVH, MAY BE NORMAL VARIANT WHEN COMPARED WITH ECG OF 09-DEC-2018 15:13, NO SIGNIFICANT CHANGE WAS FOUND Confirmed by LORENA NAJERA MD ([id number]) on 02/15/2019 1:28:30 PM Referred By: Confirmed By:LORENA NAJERA MD
[2019-02-15] MEDS: hydrOXYzine PAMOATE 50 MG CAPSULE (FP) PO PRN (15:52)
[2019-02-15] MEDS: METHOCARBAMOL 500 MG TABLET PO PRN (17:27)
[2019-02-15] MEDS: THIAMINE HCL 100 MG TABLET (FP) PO SCH (21:54)
[2019-02-15] MEDS: MELATONIN 5 MG TABLETS PO PRN (21:54)
[2019-02-16] MEDS: hydrOXYzine PAMOATE 50 MG CAPSULE (FP) PO PRN ×3 (05:45→22:13)
[2019-02-16] MEDS: chlordiazePOXIDE HCL 25 MG CAPSULE PO SCH ×4 (05:46→22:12)
[2019-02-16] MEDS: PRENATAL VITAMINS W/ FOLIC ACID TABLET (FP) PO SCH (10:07)
[2019-02-16] MEDS: busPIRone HCL 10 MG TABLET (FP) PO SCH ×2 (10:07→22:12)
[2019-02-16] MEDS: METHOCARBAMOL 500 MG TABLET PO PRN (10:08)
--- NOTE | 2019-02-16 14:48 | PN ---
S CIWA - CIWA Score Nausea/Vomitin-No Nausea/No Vomiting Muscle Tremors: 3 Anxiety: 2 Agitation: 0-Normal Activity Paroxysmal Sweats: 3 Orientation: 0-Oriented Tacttile Disturbances: 0-None Auditory Disturbances: 0-None Visual Disturbances: 0-None Headache: 0-None Present CIWA-Ar Total Score: 8 BHS Progress Note (SOAP) Subjective: Tremors, Diarrhea, Hot/Cold Sensations, Sweating. Objective: PATIENT A & O X 3, OBSERVED AMBULATING ON DETOX UNIT UNASSISTED. IN NO ACUTE DISTRESS. 02/16/19 14:59 Vital Signs Temperature 98.1 F 02/16/19 13:29 Pulse Rate 71 02/16/19 13:29 Respiratory Rate 16 02/16/19 13:29 Blood Pressure 108/73 02/16/19 13:29 O2 Sat by Pulse Oximetry (%) Laboratory Tests 02/15/19 02/15/19 02/15/19 07:40 07:40 07:40 WBC 4.5 RBC 3.48 L Hgb 11.7 Hct 34.9 L MCV 100.2 H MCH 33.7 MCHC 33.6 RDW 13.7 Plt Count 149 D MPV 9.3 Sodium 137 Potassium 4.0 Chloride 102 Carbon Dioxide 29 Anion Gap 6 L BUN 10.2 Creatinine 0.9 Est GFR (CKD-EPI)AfAm 114.21 Est GFR (CKD-EPI)NonAf 98.54 Random Glucose 101 Calcium 8.3 L Total Bilirubin 0.6 AST 96 H ALT 78 H Alkaline Phosphatase 58 Total Protein 7.1 Albumin 3.6 RPR Titer Nonreactive HIV 1&2 Antibody Screen HIV P24 Antigen 02/15/19 07:40 WBC RBC Hgb Hct MCV MCH MCHC RDW Plt Count MPV Sodium Potassium Chloride Carbon Dioxide Anion Gap BUN Creatinine Est GFR (CKD-EPI)AfAm Est GFR (CKD-EPI)NonAf Random Glucose Calcium Total Bilirubin AST ALT Alkaline Phosphatase Total Protein Albumin RPR Titer HIV 1&2 Antibody Screen Negative HIV P24 Antigen Negative LABS NOTED. Assessment: 02/16/19 15:00 WITHDRAWAL SYMPTOMS. ELEVATED AST LEVEL. ELEVATED ALT LEVEL. Plan: CONTINUE DETOX. INCREASE DAILY ORAL WATER INTAKE. PRN ORAL PEPTO-BISMOL FOR DIARRHEA.
[2019-02-16] MEDS: THIAMINE HCL 100 MG TABLET (FP) PO SCH (22:12)
[2019-02-16] MEDS: MELATONIN 5 MG TABLETS PO PRN (22:14)
[2019-02-17] MEDS ORDERED: chlordiazePOXIDE HCL 10 MG CAPSULE PO PRN
[2019-02-17] MEDS: chlordiazePOXIDE HCL 10 MG CAPSULE PO SCH ×4 (05:26→22:40)
[2019-02-17] MEDS: hydrOXYzine PAMOATE 50 MG CAPSULE (FP) PO PRN ×2 (05:27→16:06)
[2019-02-17] MEDS: busPIRone HCL 10 MG TABLET (FP) PO SCH ×2 (10:09→22:39)
[2019-02-17] MEDS: PRENATAL VITAMINS W/ FOLIC ACID TABLET (FP) PO SCH (10:09)
--- NOTE | 2019-02-17 15:43 | PN ---
[facility] CIWA - CIWA Score Nausea/Vomitin-No Nausea/No Vomiting Muscle Tremors: 1-None Visible, but [place] Anxiety: 2 Agitation: 2 Paroxysmal Sweats: 2 Orientation: 0-Oriented Tacttile Disturbances: 0-None Auditory Disturbances: 0-None Visual Disturbances: 0-None Headache: 0-None Present CIWA-Ar Total Score: 7 BHS Progress Note (SOAP) Subjective: Tremor, diarrhea Objective: 02/17/19 15:41 Last Vital Signs Temp Pulse Resp BP Pulse Ox 98.4 F 56 L 18 125/76 02/17/19 13:40 02/17/19 13:40 02/17/19 13:40 02/17/19 13:40 Laboratory Tests 02/15/19 02/15/19 02/15/19 07:40 07:40 07:40 WBC 4.5 RBC 3.48 L Hgb 11.7 Hct 34.9 L MCV 100.2 H MCH 33.7 MCHC 33.6 RDW 13.7 Plt Count 149 D MPV 9.3 Sodium 137 Potassium 4.0 Chloride 102 Carbon Dioxide 29 Anion Gap 6 L BUN 10.2 Creatinine 0.9 Est GFR (CKD-EPI)AfAm 114.21 Est GFR (CKD-EPI)NonAf 98.54 Random Glucose 101 Calcium 8.3 L Total Bilirubin 0.6 AST 96 H ALT 78 H Alkaline Phosphatase 58 Total Protein 7.1 Albumin 3.6 RPR Titer Nonreactive HIV 1&2 Antibody Screen HIV P24 Antigen 02/15/19 07:40 WBC RBC Hgb Hct MCV MCH MCHC RDW Plt Count MPV Sodium Potassium Chloride Carbon Dioxide Anion Gap BUN Creatinine Est GFR (CKD-EPI)AfAm Est GFR (CKD-EPI)NonAf Random Glucose Calcium Total Bilirubin AST ALT Alkaline Phosphatase Total Protein Albumin RPR Titer HIV 1&2 Antibody Screen Negative HIV P24 Antigen Negative Labs reviewed: AST/ALT (elevated) Assessment: 02/17/19 15:42 Withdrawal sxs Noted with transaminitis Plan: Continue detox Encouraged PO water intake Transaminitis: most likely due to alcoholism, repeat AST/ALT, encouraged abstinence, follow up with PCP for monitoring
[2019-02-17] MEDS: MELATONIN 5 MG TABLETS PO PRN (22:39)
[2019-02-17] MEDS: THIAMINE HCL 100 MG TABLET (FP) PO SCH (22:39)
[2019-02-18] MEDS: chlordiazePOXIDE HCL 10 MG CAPSULE PO SCH ×2 (06:00→17:45)
[2019-02-18] MEDS: hydrOXYzine PAMOATE 50 MG CAPSULE (FP) PO PRN ×2 (08:37→17:45)
--- NOTE | 2019-02-18 09:16 | PN ---
[facility] CIWA - CIWA Score Nausea/Vomitin-No Nausea/No Vomiting Muscle Tremors: 1-None Visible, but [place] Anxiety: 1-Mildly Anxious Agitation: 0-Normal Activity Paroxysmal Sweats: No Perspiration Orientation: 0-Oriented Tacttile Disturbances: 0-None Auditory Disturbances: 0-None Visual Disturbances: 0-None Headache: 0-None Present CIWA-Ar Total Score: 2 BHS Progress Note (SOAP) Subjective: little anxiety Objective: 02/18/19 09:15 Vital Signs Temperature 98.2 F 02/18/19 09:12 Pulse Rate 99 H 02/18/19 09:12 Respiratory Rate 18 02/18/19 09:12 Blood Pressure 129/82 02/18/19 09:12 O2 Sat by Pulse Oximetry (%) aaox3 ambulating no acute distress Assessment: 02/18/19 09:15 mild withdrawals Plan: d/c in am
[2019-02-18] MEDS: PRENATAL VITAMINS W/ FOLIC ACID TABLET (FP) PO SCH (10:12)
[2019-02-18] MEDS: busPIRone HCL 10 MG TABLET (FP) PO SCH ×2 (10:13→22:10)
[2019-02-18 10:40] LABS: SGOT/AST 61 U/L (15-37); SGPT/ALT 76 U/L (13-61)
[2019-02-18] MEDS: THIAMINE HCL 100 MG TABLET (FP) PO SCH (22:10)
[2019-02-18] MEDS: MELATONIN 5 MG TABLETS PO PRN (22:10)
[2019-02-19] MEDS ORDERED: chlordiazePOXIDE HCL 10 MG CAPSULE PO ONE (05:00)
[2019-02-19 06:46] VITALS: BP 106/64; PULSE 69; TEMP 97.7
--- NOTE | 2019-02-19 08:44 | DS ---
[facility] Detox Discharge Summary Admission Date: 02/14/19 Discharge Date: 02/19/19 - History Present History: Alcohol Dependence, Cocaine Dependence - Physical Exam Results Vital Signs: Vital Signs Temperature 97.7 F 02/19/19 06:45 Pulse Rate 69 02/19/19 06:45 Respiratory Rate 18 02/19/19 06:45 Blood Pressure 106/64 02/19/19 06:45 O2 Sat by Pulse Oximetry (%) Pertinent Admission Physical Exam Findings: Vital Signs Temperature 97.7 F 02/19/19 06:45 Pulse Rate 69 02/19/19 06:45 Respiratory Rate 18 02/19/19 06:45 Blood Pressure 106/64 02/19/19 06:45 O2 Sat by Pulse Oximetry (%) Laboratory Tests 02/15/19 02/15/19 02/15/19 07:40 07:40 07:40 WBC 4.5 RBC 3.48 L Hgb 11.7 Hct 34.9 L MCV 100.2 H MCH 33.7 MCHC 33.6 RDW 13.7 Plt Count 149 D MPV 9.3 Sodium 137 Potassium 4.0 Chloride 102 Carbon Dioxide 29 Anion Gap 6 L BUN 10.2 Creatinine 0.9 Est GFR (CKD-EPI)AfAm 114.21 Est GFR (CKD-EPI)NonAf 98.54 Random Glucose 101 Calcium 8.3 L Total Bilirubin 0.6 AST 96 H ALT 78 H Alkaline Phosphatase 58 Total Protein 7.1 Albumin 3.6 RPR Titer Nonreactive HIV 1&2 Antibody Screen HIV P24 Antigen 02/15/19 02/18/19 07:40 08:00 WBC RBC Hgb Hct MCV MCH MCHC RDW Plt Count MPV Sodium Potassium Chloride Carbon Dioxide Anion Gap BUN Creatinine Est GFR (CKD-EPI)AfAm Est GFR (CKD-EPI)NonAf Random Glucose Calcium Total Bilirubin AST 61 H ALT 76 H Alkaline Phosphatase Total Protein Albumin RPR Titer HIV 1&2 Antibody Screen Negative HIV P24 Antigen Negative aaox3 ambulating no acute distress - Treatment Hospital Course: Detox Protocol Followed, Detoxed Safely, Responded well, Discharged Condition Good, Rehab Referral Accepted Patient has Accepted a Rehab Referral to: pt referred to [facility] - Medication Discharge Medications: Ambulatory Orders Buspirone HCl [Buspar -] 10 mg PO BID #60 tablet 01/23/19 - Diagnosis (1) Alcohol dependence with uncomplicated withdrawal Current Visit: Yes Status: Chronic (2) Methamphetamine dependence Current Visit: Yes Status: Chronic (3) Anxiety and depression Current Visit: Yes Status: Chronic (4) History of positive PPD Current Visit: Yes Status: Chronic (5) Cocaine dependence Current Visit: Yes Status: Chronic Qualifiers: Substance use status: uncomplicated Qualified Code(s): F14.20 - Cocaine dependence, uncomplicated (6) Elevated aspartate aminotransferase level Current Visit: No Status: Acute (7) Elevated liver enzymes Current Visit: No Status: Acute (8) Hypocalcemia Current Visit: No Status: Acute (9) Substance-induced anxiety disorder Current Visit: No Status: Acute (10) Substance-induced sleep disorder Current Visit: No Status: Acute (11) Depressive disorder Current Visit: No Status: Suspected (12) Substance induced mood disorder Current Visit: No Status: Suspected - AMA Did Patient Leave Against Medical Advice: No
--- NOTE | 2019-02-19 08:53 | PN ---
[facility] Progress Note Note: Patient is discharged today. Script for 30 days supply of Buspar 10 mg/bid is electronically transmitted to [facility] at [address], [place] [address]
[2019-02-19] MEDS: PRENATAL VITAMINS W/ FOLIC ACID TABLET (FP) PO SCH (08:59)
[2019-02-19] MEDS: busPIRone HCL 10 MG TABLET (FP) PO SCH (08:59)
== END 2019-02-19 09:05 | disposition home or self-care (01) | DRG 774 ==
LOC: YASAS 14:32 → Y6N 21:11
PROVIDERS: ADMIT Allergy & Immunology; ATTEND Allergy & Immunology
PROC: HZ2ZZZZ Detoxification Services for Substance Abuse Treatment (ICD-10-PCS; principal; 2019-02-14)
DX: F10.230 Alcohol dependence with withdrawal, uncomplicated (principal); F15.20 Other stimulant dependence, uncomplicated; F14.20 Cocaine dependence, uncomplicated; F19.24 Other psychoactive substance dependence with psychoactive substance-induced mood disorder; F19.280 Other psychoactive substance dependence with psychoactive substance-induced anxiety disorder; F19.282 Other psychoactive substance dependence with psychoactive substance-induced sleep disorder; F41.9 Anxiety disorder, unspecified; F32.9 Major depressive disorder, single episode, unspecified; R74.0 Nonspecific elevation of levels of transaminase and lactic acid dehydrogenase [LDH]; R94.5 Abnormal results of liver function studies; R76.11 Nonspecific reaction to tuberculin skin test without active tuberculosis; Z87.891 Personal history of nicotine dependence; Z56.0 Unemployment, unspecified; Z59.0 Homelessness
CPT/HCPCS: 36415; 80053; 84450; 84460; 85027; 86593; 87389; 93005; 93010

== ENCOUNTER 2019-04-12 18:29 | Inpatient (IN) | payer OTHER ==
--- NOTE | 2019-04-12 19:17 | BHS.RME ---
Substance Use & Tx History - Last Treatment Where was last treatment: Detox CIWA Nausea/Vomitin Muscle Tremors: 3 Anxiety: 3 Agitation: 2 Paroxysmal Sweats: 2 Orientation: 0-Oriented Tacttile Disturbances: 0-None Auditory Disturbances: 0-None Visual Disturbances: 0-None Headache: 4-Moderately Severe CIWA-Ar Total Score: 16
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
[2019-04-12] MEDS ORDERED: IBUPROFEN 400 MG TABLET (FP) PO PRN (19:33)
[2019-04-12] MEDS ORDERED: MENTHOL/PHENOL 1 EACH UD MM PRN (19:33)
[2019-04-12] MEDS ORDERED: hydrOXYzine PAMOATE 25 MG CAPSULE (FP) PO PRN (19:33)
[2019-04-12] MEDS ORDERED: BISMUTH SUBSALICYLATE 524 MG/30 ML UD PO PRN (19:33)
[2019-04-12] MEDS ORDERED: MAG HYDROX/AL HYDROX/SIMETH 30 ML UNIT-DOSE CUP PO PRN (19:33)
[2019-04-12] MEDS ORDERED: MAGNESIUM CITRATE 300 ML BOTTLE PO PRN (19:33)
[2019-04-12] MEDS ORDERED: MAGNESIUM HYDROX 2400MG/30ML ORAL SUSPENSION 30 ML CUP PO PRN (19:33)
[2019-04-12] MEDS ORDERED: ACETAMINOPHEN 325 MG TABLET (FP) PO PRN (19:33)
[2019-04-12 20:12] VITALS: BMI 28.8
[2019-04-12] MEDS: chlordiazePOXIDE HCL 25 MG CAPSULE PO PRN (20:55)
[2019-04-12] MEDS: THIAMINE HCL 100 MG TABLET (FP) PO SCH (22:56)
[2019-04-12] MEDS: chlordiazePOXIDE HCL 25 MG CAPSULE PO SCH (23:26)
[2019-04-13] MEDS: chlordiazePOXIDE HCL 25 MG CAPSULE PO SCH ×4 (05:11→22:46)
[2019-04-13 09:38] LABS: HEMATOCRIT 35.5 % (35.4-49); HEMOGLOBIN 12.1 GM/dL (11.7-16.9); MCH 34.4 pg (25.7-33.7); MCHC 34.1 g/dl (32.0-35.9); MEAN CELL VOLUME 100.8 fl (80-96); MEAN PLT VOLUME 9.4 fl (7.5-11.1); PLATELET COUNT 166 K/MM3 (134-434); RBC 3.52 M/mm3 (4.00-5.60); RDW 13.6 % (11.9-15.9)
[2019-04-13 09:45] LABS: ALBUMIN 3.7 g/dl (3.4-5.0); BILIRUBIN,TOTAL 0.3 mg/dL (0.2-1); BLOOD UREA NITROGEN 15.6 mg/dL (7-18); CALCIUM 8.7 mg/dL (8.5-10.1); CREATININE 0.9 mg/dL (0.55-1.3); POTASSIUM 4.1 mmol/L (3.5-5.1)
--- NOTE | 2019-04-13 10:36 | EKG ---
Test Reason : Blood Pressure : / mmHG Vent. Rate : 084 BPM Atrial Rate : 084 BPM P-R Int : 146 ms QRS Dur : 082 ms QT Int : 364 ms P-R-T Axes : 067 025 035 degrees QTc Int : 430 ms NORMAL SINUS RHYTHM MINIMAL VOLTAGE CRITERIA FOR LVH, MAY BE NORMAL VARIANT BORDERLINE ECG WHEN COMPARED WITH ECG OF 14-FEB-2019 21:13, NO SIGNIFICANT CHANGE WAS FOUND Confirmed by PERICO YANG, JORGE ([id number]) on 04/13/2019 10:35:53 AM Referred By: Confirmed By:JORGE RIVER MD
[2019-04-13] MEDS: PRENATAL VITAMINS W/ FOLIC ACID TABLET (FP) PO SCH (11:39)
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
[2019-04-13] MEDS: chlordiazePOXIDE HCL 25 MG CAPSULE PO PRN (12:47)
[2019-04-13] MEDS: busPIRone HCL 10 MG TABLET (FP) PO SCH ×2 (13:17→22:45)
[2019-04-13] MEDS: hydrOXYzine PAMOATE 50 MG CAPSULE (FP) PO PRN (13:18)
--- NOTE | 2019-04-13 17:19 | PN ---
S CIWA - CIWA Score Nausea/Vomitin-No Nausea/No Vomiting Muscle Tremors: None Anxiety: 4-Mod. Anxious/Guarded Agitation: 0-Normal Activity Paroxysmal Sweats: 3 Orientation: 0-Oriented Tacttile Disturbances: 1-Very Mild Itch/Numbness Auditory Disturbances: 0-None Visual Disturbances: 2-Mild Sensitivity Headache: 0-None Present CIWA-Ar Total Score: 10 BHS Progress Note (SOAP) Subjective: Anxious, Sweating, Hot/Cold Sensations. Objective: PATIENT A & O X 3. IN NO ACUTE DISTRESS. 04/13/19 17:18 Vital Signs Temperature 97.7 F 04/13/19 12:35 Pulse Rate 76 04/13/19 12:35 Respiratory Rate 16 04/13/19 12:35 Blood Pressure 144/90 04/13/19 12:35 O2 Sat by Pulse Oximetry (%) Laboratory Tests 04/13/19 04/13/19 04/13/19 07:00 07:00 07:00 WBC 4.0 RBC 3.52 L Hgb 12.1 Hct 35.5 MCV 100.8 H MCH 34.4 H MCHC 34.1 RDW 13.6 Plt Count 166 MPV 9.4 Sodium 139 Potassium 4.1 Chloride 107 Carbon Dioxide 27 Anion Gap 5 L BUN 15.6 Creatinine 0.9 Est GFR (CKD-EPI)AfAm 113.41 Est GFR (CKD-EPI)NonAf 97.85 Random Glucose 88 Calcium 8.7 Total Bilirubin 0.3 AST 36 ALT 42 Alkaline Phosphatase 48 Total Protein 7.0 Albumin 3.7 RPR Titer Nonreactive LABS NOTED. Assessment: 04/13/19 17:18 WITHDRAWAL SYMPTOMS. Plan: CONTINUE DETOX. INCREASE DAILY ORAL WATER INTAKE.
[2019-04-13] MEDS: THIAMINE HCL 100 MG TABLET (FP) PO SCH (22:45)
[2019-04-13] MEDS: MELATONIN 5 MG TABLETS PO PRN (22:46)
[2019-04-14] MEDS: chlordiazePOXIDE HCL 25 MG CAPSULE PO SCH ×4 (06:34→22:38)
[2019-04-14] MEDS: busPIRone HCL 10 MG TABLET (FP) PO SCH ×2 (10:41→22:38)
[2019-04-14] MEDS: PRENATAL VITAMINS W/ FOLIC ACID TABLET (FP) PO SCH (10:41)
[2019-04-14] MEDS: ACETAMINOPHEN 325 MG TABLET (FP) PO PRN (10:42)
[2019-04-14] MEDS: METHOCARBAMOL 500 MG TABLET PO PRN ×2 (10:42→22:38)
[2019-04-14] MEDS: LIDOCAINE 5% TOPICAL PATCH TP SCH (14:13)
--- NOTE | 2019-04-14 16:49 | PN ---
S CIWA - CIWA Score Nausea/Vomitin-No Nausea/No Vomiting Muscle Tremors: 2 Anxiety: 2 Agitation: 2 Paroxysmal Sweats: 2 Orientation: 0-Oriented Tacttile Disturbances: 0-None Auditory Disturbances: 0-None Visual Disturbances: 0-None Headache: 0-None Present CIWA-Ar Total Score: 8 BHS Progress Note (SOAP) Subjective: Chills, anxious, tremor, runny nose, back pain. Patient requests lidocaine patch for back pain. Objective: 04/14/19 16:48 Last Vital Signs Temp Pulse Resp BP Pulse Ox 98.1 F 78 18 116/65 04/14/19 12:58 04/14/19 12:58 04/14/19 12:58 04/14/19 12:58 Laboratory Tests 04/13/19 04/13/19 04/13/19 07:00 07:00 07:00 WBC 4.0 RBC 3.52 L Hgb 12.1 Hct 35.5 MCV 100.8 H MCH 34.4 H MCHC 34.1 RDW 13.6 Plt Count 166 MPV 9.4 Sodium 139 Potassium 4.1 Chloride 107 Carbon Dioxide 27 Anion Gap 5 L BUN 15.6 Creatinine 0.9 Est GFR (CKD-EPI)AfAm 113.41 Est GFR (CKD-EPI)NonAf 97.85 Random Glucose 88 Calcium 8.7 Total Bilirubin 0.3 AST 36 ALT 42 Alkaline Phosphatase 48 Total Protein 7.0 Albumin 3.7 RPR Titer Nonreactive Labs reviewed Assessment: 04/14/19 16:48 Withdrawal sxs Plan: Continue detox Encouraged PO water intake Lidocaine patch ordered for back pain as per patient's request
[2019-04-14] MEDS: MELATONIN 5 MG TABLETS PO PRN (22:38)
[2019-04-14] MEDS: LIDOCAINE PATCH REMOVAL MC SCH (22:38)
[2019-04-14] MEDS: THIAMINE HCL 100 MG TABLET (FP) PO SCH (22:38)
[2019-04-14] MEDS: hydrOXYzine PAMOATE 50 MG CAPSULE (FP) PO PRN (22:39)
[2019-04-15] MEDS ORDERED: chlordiazePOXIDE HCL 10 MG CAPSULE PO PRN
[2019-04-15] MEDS: chlordiazePOXIDE HCL 10 MG CAPSULE PO SCH ×4 (05:45→22:08)
[2019-04-15] MEDS: LIDOCAINE 5% TOPICAL PATCH TP SCH (10:33)
[2019-04-15] MEDS: busPIRone HCL 10 MG TABLET (FP) PO SCH ×2 (10:34→22:08)
[2019-04-15] MEDS: PRENATAL VITAMINS W/ FOLIC ACID TABLET (FP) PO SCH (10:34)
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
[2019-04-15] MEDS: METHOCARBAMOL 500 MG TABLET PO PRN (12:19)
[2019-04-15] MEDS: hydrOXYzine PAMOATE 50 MG CAPSULE (FP) PO PRN ×2 (13:27→20:25)
[2019-04-15] MEDS: METHYL SALICYLATE/MENTHOL OINT 30 GM TUBE TP PRN (15:27)
[2019-04-15] MEDS: THIAMINE HCL 100 MG TABLET (FP) PO SCH (22:08)
[2019-04-15] MEDS: MELATONIN 5 MG TABLETS PO PRN (22:08)
[2019-04-15] MEDS: LIDOCAINE PATCH REMOVAL MC SCH (22:17)
[2019-04-16] MEDS: chlordiazePOXIDE HCL 10 MG CAPSULE PO SCH ×2 (06:04→17:34)
[2019-04-16] MEDS: ACETAMINOPHEN 325 MG TABLET (FP) PO PRN ×2 (06:05→17:34)
[2019-04-16] MEDS: LIDOCAINE 5% TOPICAL PATCH TP SCH (10:05)
[2019-04-16] MEDS: busPIRone HCL 10 MG TABLET (FP) PO SCH ×2 (10:05→22:06)
[2019-04-16] MEDS: PRENATAL VITAMINS W/ FOLIC ACID TABLET (FP) PO SCH (10:05)
--- NOTE | 2019-04-16 12:48 | PN ---
[facility] CIWA - CIWA Score Nausea/Vomitin-Mild Nausea/No Vomiting Muscle Tremors: 1-None Visible, but [place] Anxiety: 1-Mildly Anxious Agitation: 1-Slight > Activity Paroxysmal Sweats: No Perspiration Orientation: 0-Oriented Tacttile Disturbances: 0-None Auditory Disturbances: 0-None Visual Disturbances: 0-None Headache: 1-Very Mild CIWA-Ar Total Score: 5 S Progress Note (SOAP) Subjective: alert,irritable,anxious,interrupted sleep Objective: 04/16/19 12:42 Vital Signs Temperature 98.1 F 04/16/19 08:30 Pulse Rate 69 04/16/19 08:30 Respiratory Rate 18 04/16/19 08:30 Blood Pressure 107/68 04/16/19 08:30 O2 Sat by Pulse Oximetry (%) Assessment: 04/16/19 12:44 withdrawal symptom Plan: continue detox librium regimen,discharge in am
[2019-04-16] MEDS: hydrOXYzine PAMOATE 50 MG CAPSULE (FP) PO PRN (14:58)
[2019-04-16] MEDS: THIAMINE HCL 100 MG TABLET (FP) PO SCH (22:06)
[2019-04-16] MEDS: MELATONIN 5 MG TABLETS PO PRN (22:06)
[2019-04-16] MEDS: LIDOCAINE PATCH REMOVAL MC SCH (23:52)
[2019-04-17] MEDS ORDERED: chlordiazePOXIDE HCL 10 MG CAPSULE PO ONE (05:00)
[2019-04-17] MEDS: ACETAMINOPHEN 325 MG TABLET (FP) PO PRN (05:29)
[2019-04-17 06:16] VITALS: BP 105/75; PULSE 76; TEMP 97.7
[2019-04-17] MEDS: METHYL SALICYLATE/MENTHOL OINT 30 GM TUBE TP PRN (06:18)
--- NOTE | 2019-04-17 09:03 | PN ---
[facility] Progress Note Note: Patient is discharged today. Scripts for 30 days supply of Buspar 10 mg/bid is electronically transmitted to [facility] at [address] [place], [place] [id number]
--- NOTE | 2019-04-17 09:21 | DS ---
[facility] Detox Discharge Summary Admission Date: 04/12/19 - Physical Exam Results Vital Signs: Vital Signs Temperature 97.7 F 04/17/19 06:16 Pulse Rate 76 04/17/19 06:16 Respiratory Rate 18 04/17/19 06:16 Blood Pressure 105/75 04/17/19 06:16 O2 Sat by Pulse Oximetry (%) pt aox3 in nad ambulating well lungs clear to a/p cor rrr, no m abd soft nontender ,bs+ neuro intact time spent with d/c /pt 35minutes - Treatment Hospital Course: Detox Protocol Followed, Detoxed Safely, Responded well, Discharged Condition Good - Medication Discharge Medications: Ambulatory Orders Buspirone HCl [Buspar -] 10 mg PO BID #60 tablet 04/17/19 Buspirone HCl [Buspar -] 10 mg PO BID #60 tablet 04/17/19 - Diagnosis (1) Alcohol dependence with uncomplicated withdrawal Current Visit: Yes Status: Chronic (2) Elevated liver enzymes Current Visit: No Status: Resolved (3) Cocaine dependence Current Visit: No Status: Chronic Qualifiers: Substance use status: uncomplicated Qualified Code(s): F14.20 - Cocaine dependence, uncomplicated (4) Methamphetamine dependence Current Visit: No Status: Chronic - AMA Did Patient Leave Against Medical Advice: No
== END 2019-04-17 08:20 | disposition home or self-care (01) | DRG 774 ==
LOC: YASAS 18:29 → Y6N 20:22
PROVIDERS: ADMIT Allergy & Immunology; ATTEND Allergy & Immunology
PROC: HZ2ZZZZ Detoxification Services for Substance Abuse Treatment (ICD-10-PCS; principal; 2019-04-12)
DX: F10.230 Alcohol dependence with withdrawal, uncomplicated (principal); F14.20 Cocaine dependence, uncomplicated; F15.20 Other stimulant dependence, uncomplicated; F19.280 Other psychoactive substance dependence with psychoactive substance-induced anxiety disorder; F19.282 Other psychoactive substance dependence with psychoactive substance-induced sleep disorder; F41.8 Other specified anxiety disorders; F32.9 Major depressive disorder, single episode, unspecified; M54.89 Other dorsalgia; M25.552 Pain in left hip; M79.605 Pain in left leg; R76.11 Nonspecific reaction to tuberculin skin test without active tuberculosis; Z87.891 Personal history of nicotine dependence; V89.2XXS Person injured in unspecified motor-vehicle accident, traffic, sequela
CPT/HCPCS: 36415; 80053; 85027; 86593; 93005; 93010

== ENCOUNTER 2019-05-09 12:41 | Inpatient (IN) | payer OTHER ==
--- NOTE | 2019-05-09 15:14 | BHS.RME ---
Substance Use & Tx History - Substance Use History Alcohol Substance amount: 4-6 PACK BEERS AND 2 PINTS OF VODKA Frequency of use: Daily Substance route: Oral Date of Last Use: 05/09/19 Cocaine (Powder) Substance amount: UP TO $1000 Frequency of use: Once a month Substance route: Inhalation (ex: sniffing or snorting) - Last Treatment Date of last treatment: 04/12-04/13/19 Treatment type: Substance Use Disorder ([facility]) Where was last treatment: Detox Physical/Psych/Mental Status - Behavior General Behavior: Increased activity (restlessness, agitation) Eye Contact: Normal - Cooperativeness Cooperativeness: Cooperative - Thinking Thought Processes: Tight, Logical, Goal Directed Thought content: Future oriented - Physical Health Problems Is patient presently having any pain?: No Does patient presently have any injuries (include location): No Does patient currently have a fever: No Is patient : No CIWA Nausea/Vomitin-Mild Nausea/No Vomiting Muscle Tremors: 3 Anxiety: 2 Agitation: 3 Paroxysmal Sweats: 1-Minimal Palms Moist Orientation: 0-Oriented Tacttile Disturbances: 0-None Auditory Disturbances: 0-None Visual Disturbances: 1-Very Mild Sensitivity Headache: 2-Mild (STILL SOMEWHAT INTOXICATED HE DRANK JUST AT 12:30pm) CIWA-Ar Total Score: 13
[2019-05-09 17:59] VITALS: BMI 29.5
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
[2019-05-09] MEDS ORDERED: ACETAMINOPHEN 325 MG TABLET (FP) PO PRN ×2 (18:57)
[2019-05-09] MEDS ORDERED: BISMUTH SUBSALICYLATE 524 MG/30 ML UD PO PRN (18:57)
[2019-05-09] MEDS ORDERED: MENTHOL/PHENOL 1 EACH UD MM PRN (18:57)
[2019-05-09] MEDS ORDERED: METHOCARBAMOL 500 MG TABLET PO PRN (18:57)
[2019-05-09] MEDS ORDERED: MAGNESIUM CITRATE 300 ML BOTTLE PO PRN (18:57)
[2019-05-09] MEDS ORDERED: MAGNESIUM HYDROX 2400MG/30ML ORAL SUSPENSION 30 ML CUP PO PRN (18:57)
[2019-05-09] MEDS ORDERED: MAG HYDROX/AL HYDROX/SIMETH 30 ML UNIT-DOSE CUP PO PRN (18:57)
[2019-05-09] MEDS ORDERED: diazePAM 5 MG TABLET PO PRN (19:00)
[2019-05-09] MEDS: METHYL SALICYLATE/MENTHOL OINT 30 GM TUBE TP PRN (22:10)
[2019-05-09] MEDS: THIAMINE HCL 100 MG TABLET (FP) PO SCH (22:11)
[2019-05-09] MEDS: diazePAM 5 MG TABLET PO SCH (22:11)
[2019-05-10] MEDS: diazePAM 5 MG TABLET PO SCH ×3 (06:34→22:17)
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
[2019-05-10] MEDS: PRENATAL VITAMINS W/ FOLIC ACID TABLET (FP) PO SCH (10:25)
[2019-05-10] MEDS: hydrOXYzine PAMOATE 25 MG CAPSULE (FP) PO PRN ×2 (10:27→15:16)
--- NOTE | 2019-05-10 13:56 | PN ---
[facility] CIWA - CIWA Score Nausea/Vomitin-No Nausea/No Vomiting Muscle Tremors: 1-None Visible, but [place] Anxiety: 1-Mildly Anxious Agitation: 1-Slight > Activity Paroxysmal Sweats: 1-Minimal Palms Moist Orientation: 0-Oriented Tacttile Disturbances: 0-None Auditory Disturbances: 1-Very Mild Visual Disturbances: 1-Very Mild Sensitivity Headache: 1-Very Mild CIWA-Ar Total Score: 7 S Progress Note (SOAP) Subjective: Feels sweaty, anxious, light and noise sensitive Objective: 05/10/19 13:54 Vital Signs Temperature 98.6 F 05/10/19 12:50 Pulse Rate 84 05/10/19 12:50 Respiratory Rate 18 05/10/19 12:50 Blood Pressure 118/70 05/10/19 12:50 O2 Sat by Pulse Oximetry (%) 95 05/10/19 12:50 PE gnl WDWN, in no distress Mental status: awake, alert,nl language function Motor: moves limbs symetrically Coordination: nl Assessment: 05/10/19 13:54 1. Alcohol use disorder Plan: 1. Valium detox protocol
[2019-05-10] MEDS ORDERED: diazePAM 5 MG TABLET PO PRN (15:13)
[2019-05-10] MEDS: busPIRone HCL 10 MG TABLET (FP) PO SCH (22:17)
[2019-05-10] MEDS: THIAMINE HCL 100 MG TABLET (FP) PO SCH (22:18)
[2019-05-10] MEDS: MELATONIN 5 MG TABLETS PO PRN (22:19)
[2019-05-11] MEDS: diazePAM 5 MG TABLET PO SCH ×3 (05:25→22:07)
[2019-05-11] MEDS ORDERED: diazePAM 5 MG TABLET PO ONE (06:00)
[2019-05-11] MEDS: busPIRone HCL 10 MG TABLET (FP) PO SCH ×2 (10:18→22:07)
[2019-05-11] MEDS: hydrOXYzine PAMOATE 25 MG CAPSULE (FP) PO PRN ×3 (10:19→22:07)
[2019-05-11] MEDS: PRENATAL VITAMINS W/ FOLIC ACID TABLET (FP) PO SCH (10:19)
--- NOTE | 2019-05-11 11:14 | PN ---
S CIWA - CIWA Score Nausea/Vomitin-No Nausea/No Vomiting Muscle Tremors: None Anxiety: 3 Agitation: 0-Normal Activity Paroxysmal Sweats: 2 Orientation: 0-Oriented Tacttile Disturbances: 0-None Auditory Disturbances: 0-None Visual Disturbances: 0-None Headache: 2-Mild CIWA-Ar Total Score: 7 BHS Progress Note (SOAP) Subjective: c/o sweats, anxiety, and headache. Objective: 05/11/19 11:13 Vital Signs 05/11/19 05/11/19 05/11/19 03:30 06:32 08:41 Temperature 97.8 F 96.9 F L Pulse Rate 66 89 Respiratory 16 18 18 Rate Blood Pressure 116/69 123/79 O2 Sat by Pulse 98 Oximetry (%) Assessment: 05/11/19 11:13 AOX3, in no acute respiratory distress. Full ROM, ambulating in the unit. Withdrawal symptoms. Plan: continue detox.
[2019-05-11] MEDS: THIAMINE HCL 100 MG TABLET (FP) PO SCH (22:08)
[2019-05-12] MEDS: diazePAM 5 MG TABLET PO SCH ×2 (05:25→17:26)
[2019-05-12] MEDS: PRENATAL VITAMINS W/ FOLIC ACID TABLET (FP) PO SCH (10:39)
[2019-05-12] MEDS: busPIRone HCL 10 MG TABLET (FP) PO SCH ×2 (10:39→22:23)
--- NOTE | 2019-05-12 10:39 | PN ---
S CIWA - CIWA Score Nausea/Vomitin-No Nausea/No Vomiting Muscle Tremors: 2 Anxiety: 2 Agitation: 0-Normal Activity Paroxysmal Sweats: 1-Minimal Palms Moist Orientation: 0-Oriented Tacttile Disturbances: 0-None Auditory Disturbances: 0-None Visual Disturbances: 0-None Headache: 1-Very Mild CIWA-Ar Total Score: 6 BHS Progress Note (SOAP) Subjective: 54 years old male admitted on 05/09/19 for alcohol withdrawal sx management treating with valium detox regiment feeling better today ambulating with wheelchair order cane for ambulation patient is able to ambulating from bed the bathroom by holding the bed frame Objective: 05/12/19 10:41 Vital Signs Temperature 98 F 05/12/19 08:40 Pulse Rate 74 05/12/19 08:40 Respiratory Rate 18 05/12/19 08:40 Blood Pressure 111/68 05/12/19 08:40 O2 Sat by Pulse Oximetry (%) 97 05/12/19 06:37 05/12/19 10:42 lab see 04/13/19 04/13/19 10:43lab result no repeat necessary at this time Assessment: 05/12/19 10:44 alcohol withdrawal Plan: valium regiment
[2019-05-12] MEDS: IBUPROFEN 400 MG TABLET (FP) PO PRN ×2 (10:40→23:56)
[2019-05-12] MEDS: hydrOXYzine PAMOATE 25 MG CAPSULE (FP) PO PRN (10:40)
[2019-05-12] MEDS: METHYL SALICYLATE/MENTHOL OINT 30 GM TUBE TP PRN (10:41)
[2019-05-12] MEDS: MELATONIN 5 MG TABLETS PO PRN (22:22)
[2019-05-12] MEDS: THIAMINE HCL 100 MG TABLET (FP) PO SCH (22:23)
--- NOTE | 2019-05-13 00:21 | PN ---
S Progress Note Note: ASKED TO SEE PATIENT FOR FEVER. CLIENT DENIES COUGH, SOB, IVDU, SORE THROAT. C/O AIR CONDITIONING IN HIS ROOM GIVING HIM CHILLS AND NOT PO HYDRATING CONTRIBUTING TO HIS FEVER SEEN A/O X3 AMBULATING W/O DIFFICULTY HEENT- NCAT, NO LAD, MMM, NL TONSILS CV- RRR LUNGS- CTAB SKIN- DRY INTACT Vital Signs 05/12/19 05/12/19 05/12/19 16:57 20:49 23:00 Temperature 99.2 F 100.1 F H 102.6 F H Pulse Rate 76 81 Respiratory 18 18 Rate Blood Pressure 109/70 123/80 O2 Sat by Pulse 100 Oximetry (%) 05/12/19 05/12/19 23:57 23:58 Temperature 101.7 F H Pulse Rate Respiratory Rate Blood Pressure O2 Sat by Pulse 99 Oximetry (%) NO LABS NOTED A- FEVER P- TYLENOL/ MOTRIN PRN PO HYDRATION CONTINUE TO MONITOR CLINICALLY. CLIENT IS SCHEDULED FOR DC IN THE MORNING. INFORMED TO F/U W/PMD FOR UNRESOLVED SXS'
[2019-05-13] MEDS ORDERED: diazePAM 5 MG TABLET PO ONE (06:00)
[2019-05-13 06:49] VITALS: BP 136/89; PULSE 87
[2019-05-13] MEDS: IBUPROFEN 400 MG TABLET (FP) PO PRN (07:43)
[2019-05-13 07:45] VITALS: TEMP 101.5
[2019-05-13] MEDS: PRENATAL VITAMINS W/ FOLIC ACID TABLET (FP) PO SCH (09:32)
[2019-05-13] MEDS: busPIRone HCL 10 MG TABLET (FP) PO SCH (09:32)
== END 2019-05-13 08:47 | disposition home or self-care (01) | DRG 774 ==
LOC: YASAS 12:41 → Y3N 19:17
PROVIDERS: ADMIT Allergy & Immunology; ATTEND Allergy & Immunology
PROC: HZ2ZZZZ Detoxification Services for Substance Abuse Treatment (ICD-10-PCS; principal; 2019-05-09)
DX: F10.230 Alcohol dependence with withdrawal, uncomplicated (principal); F14.20 Cocaine dependence, uncomplicated; F19.280 Other psychoactive substance dependence with psychoactive substance-induced anxiety disorder; R50.9 Fever, unspecified; Z87.891 Personal history of nicotine dependence; Z99.89 Dependence on other enabling machines and devices; Z56.0 Unemployment, unspecified; Z59.0 Homelessness

== ENCOUNTER 2019-10-11 08:55 | Inpatient (IN) | payer OTHER ==
--- NOTE | 2019-10-11 09:05 | BHS.RME ---
Substance Use & Tx History - Substance Use History Alcohol Substance amount: 2 pints vodka + 4 six pack beer Frequency of use: Daily Substance route: Oral Date of Last Use: 10/11/19 (6am) Cocaine- Powder Substance amount: stopped did not restart Nicotine Substance amount: former smoker stopped 4 years ago - Last Treatment Date of last treatment: 05/08-05/13/19 Treatment type: Substance Use Disorder ([facility]ERRELL) Where was last treatment: Detox Physical/Psych/Mental Status - Behavior General Behavior: Increased activity (restlessness, agitation) Eye Contact: Normal - Cooperativeness Cooperativeness: Cooperative - Thinking Thought Processes: Tight, Logical, Goal Directed Thought content: Future oriented - Physical Health Problems Is patient presently having any pain?: No Does patient presently have any injuries (include location): No Does patient currently have a fever: No Is patient : No CIWA Nausea/Vomitin-Int. Nausea w/Dry Heave Muscle Tremors: 3 Anxiety: 4-Mod. Anxious/Guarded Agitation: 4-Moderately Restless Paroxysmal Sweats: 5 Orientation: 0-Oriented Tacttile Disturbances: 0-None Auditory Disturbances: 0-None Visual Disturbances: 0-None Headache: 2-Mild CIWA-Ar Total Score: 22
[2019-10-11 09:22] VITALS: BMI 29.5
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
[2019-10-11] MEDS ORDERED: ACETAMINOPHEN 325 MG TABLET (FP) PO PRN ×2 (10:01)
[2019-10-11] MEDS ORDERED: MAGNESIUM CITRATE 300 ML BOTTLE PO PRN (10:01)
[2019-10-11] MEDS ORDERED: BISMUTH SUBSALICYLATE 524 MG/30 ML UD PO PRN (10:01)
[2019-10-11] MEDS ORDERED: MAGNESIUM HYDROX 2400MG/30ML ORAL SUSPENSION 30 ML CUP PO PRN (10:01)
[2019-10-11] MEDS ORDERED: IBUPROFEN 400 MG TABLET (FP) PO PRN (10:01)
[2019-10-11] MEDS ORDERED: MENTHOL/PHENOL 1 EACH UD MM PRN (10:01)
[2019-10-11] MEDS ORDERED: MAG HYDROX/AL HYDROX/SIMETH 30 ML UNIT-DOSE CUP PO PRN (10:01)
[2019-10-11] MEDS ORDERED: chlordiazePOXIDE HCL 25 MG CAPSULE PO PRN (10:01)
[2019-10-11] MEDS ORDERED: ONDANSETRON *ODT* 4 MG TABLET SL ONE (11:00)
[2019-10-11] MEDS: PRENATAL VITAMINS W/ FOLIC ACID TABLET (FP) PO SCH (11:10)
[2019-10-11] MEDS: chlordiazePOXIDE HCL 25 MG CAPSULE PO SCH ×3 (11:11→22:18)
[2019-10-11] MEDS: METHOCARBAMOL 500 MG TABLET PO PRN (11:12)
[2019-10-11] MEDS: BACITRACIN/POLYMYXIN B SULFATE 15 GM TUBE TP SCH ×2 (13:47→23:55)
[2019-10-11] MEDS: hydrOXYzine PAMOATE 25 MG CAPSULE (FP) PO SCH ×3 (13:48→22:18)
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
[2019-10-11 14:59] LABS: HEMATOCRIT 36.2 % (35.4-49); MCH 33.6 pg (25.7-33.7); MCHC 33.3 g/dl (32.0-35.9); MEAN CELL VOLUME 100.8 fl (80-96); MEAN PLT VOLUME 10.2 fl (7.5-11.1); PLATELET COUNT 140 K/MM3 (134-434); RBC 3.59 M/mm3 (4.00-5.60); RDW 13.1 % (11.9-15.9); WHITE BLOOD COUNT 4.4 K/mm3 (4.0-10.0)
[2019-10-11 15:11] LABS: ALBUMIN 3.6 g/dl (3.4-5.0); BILIRUBIN,TOTAL 0.3 mg/dL (0.2-1); CALCIUM 8.5 mg/dL (8.5-10.1); CREATININE 0.8 mg/dL (0.55-1.3); POTASSIUM 3.8 mmol/L (3.5-5.1); TOT PROT 7.4 g/dl (6.4-8.2)
[2019-10-11] MEDS: THIAMINE HCL 100 MG TABLET (FP) PO SCH (22:18)
[2019-10-11] MEDS: MELATONIN 5 MG TABLETS PO SCH (22:19)
[2019-10-12] MEDS: chlordiazePOXIDE HCL 25 MG CAPSULE PO SCH ×2 (05:45→10:24)
[2019-10-12] MEDS: hydrOXYzine PAMOATE 25 MG CAPSULE (FP) PO SCH ×5 (05:45→22:07)
[2019-10-12] MEDS: BACITRACIN/POLYMYXIN B SULFATE 15 GM TUBE TP SCH ×2 (10:24→22:10)
[2019-10-12] MEDS: PRENATAL VITAMINS W/ FOLIC ACID TABLET (FP) PO SCH (10:24)
--- NOTE | 2019-10-12 12:48 | PN ---
[facility] CIWA - CIWA Score Nausea/Vomitin-No Nausea/No Vomiting Muscle Tremors: 3 Anxiety: 3 Agitation: 2 Paroxysmal Sweats: 2 Orientation: 0-Oriented Tacttile Disturbances: 0-None Auditory Disturbances: 1-Very Mild Visual Disturbances: 1-Very Mild Sensitivity Headache: 0-None Present CIWA-Ar Total Score: 12 S Progress Note (SOAP) Subjective: Complaints of sweat, shakes, tremors, agitation, visual and auditory disturbances. Objective: 10/12/19 12:46 Vital Signs 10/12/19 10/12/19 05:20 08:53 Temperature 98.6 F 97.1 F L Pulse Rate 77 71 Respiratory 16 17 Rate Blood Pressure 121/72 108/67 O2 Sat by Pulse 98 Oximetry (%) Laboratory Last Values WBC 4.4 K/mm3 (4.0-10.0) 10/11/19 09:45 RBC 3.59 M/mm3 (4.00-5.60) L 10/11/19 09:45 Hgb 12.0 GM/dL (11.7-16.9) 10/11/19 09:45 Hct 36.2 % (35.4-49) 10/11/19 09:45 MCV 100.8 fl (80-96) H 10/11/19 09:45 MCH 33.6 pg (25.7-33.7) 10/11/19 09:45 MCHC 33.3 g/dl (32.0-35.9) 10/11/19 09:45 RDW 13.1 % (11.9-15.9) 10/11/19 09:45 Plt Count 140 K/MM3 (134-434) 10/11/19 09:45 MPV 10.2 fl (7.5-11.1) 10/11/19 09:45 Sodium 134 mmol/L (136-145) L 10/11/19 09:45 Potassium 3.8 mmol/L (3.5-5.1) 10/11/19 09:45 Chloride 102 mmol/L (98-107) 10/11/19 09:45 Carbon Dioxide 25 mmol/L (21-32) 10/11/19 09:45 Anion Gap 8 MMOL/L (8-16) 10/11/19 09:45 BUN 11.0 mg/dL (7-18) 10/11/19 09:45 Creatinine 0.8 mg/dL (0.55-1.3) 10/11/19 09:45 Est GFR (CKD-EPI)AfAm 119.04 10/11/19 09:45 Est GFR (CKD-EPI)NonAf 102.71 10/11/19 09:45 Random Glucose 101 mg/dL (74-106) 10/11/19 09:45 Calcium 8.5 mg/dL (8.5-10.1) 10/11/19 09:45 Total Bilirubin 0.3 mg/dL (0.2-1) 10/11/19 09:45 AST 121 U/L (15-37) H 10/11/19 09:45 ALT 105 U/L (13-61) H 10/11/19 09:45 Alkaline Phosphatase 68 U/L (45-117) 10/11/19 09:45 Total Protein 7.4 g/dl (6.4-8.2) 10/11/19 09:45 Albumin 3.6 g/dl (3.4-5.0) 10/11/19 09:45 Syphilis Serology Non-reactive (NONREACTIVE) 10/11/19 09:45 COVID-19 ([facility]ON) Not detected (Not Detected) 10/11/19 11:25 HIV Ag/Ab Combo Qual Negative (NEGATIVE) 10/11/19 10:50 Labs noted with elevated AST/ALT. Assessment: 10/12/19 12:48 Alert and oriented x 3, in no acute respiratory distress. Full ROM, ambulating in the unit without assistance. Withdrawal symptoms. Plan: Switch from Librium to Ativan protocol due elevated AST
[2019-10-12] MEDS ORDERED: LORazepam 1 MG TABLET PO PRN (12:52)
[2019-10-12] MEDS: LORazepam 2 MG TABLET PO SCH ×2 (17:49→22:07)
[2019-10-12] MEDS: THIAMINE HCL 100 MG TABLET (FP) PO SCH (22:07)
[2019-10-12] MEDS: MELATONIN 5 MG TABLETS PO SCH (22:07)
[2019-10-13] MEDS ORDERED: chlordiazePOXIDE HCL 25 MG CAPSULE PO SCH (05:00)
[2019-10-13] MEDS: hydrOXYzine PAMOATE 25 MG CAPSULE (FP) PO SCH ×5 (05:42→22:05)
[2019-10-13] MEDS: LORazepam 2 MG TABLET PO SCH ×4 (05:42→22:05)
[2019-10-13] MEDS: METHOCARBAMOL 500 MG TABLET PO PRN (05:45)
[2019-10-13] MEDS: PRENATAL VITAMINS W/ FOLIC ACID TABLET (FP) PO SCH (10:16)
[2019-10-13] MEDS: BACITRACIN/POLYMYXIN B SULFATE 15 GM TUBE TP SCH ×2 (10:16→22:05)
--- NOTE | 2019-10-13 11:49 | PN ---
[facility] CIWA - CIWA Score Nausea/Vomitin-No Nausea/No Vomiting Muscle Tremors: 2 Anxiety: 2 Agitation: 1-Slight > Activity Paroxysmal Sweats: 2 Orientation: 0-Oriented Tacttile Disturbances: 0-None Auditory Disturbances: 1-Very Mild Visual Disturbances: 1-Very Mild Sensitivity Headache: 0-None Present CIWA-Ar Total Score: 9 S Progress Note (SOAP) Subjective: Complaints of sweats, shakes, anxiety, agitation mild light and noise sensitivity. Objective: 10/13/19 11:48 Vital Signs 10/13/19 10/13/19 05:34 09:17 Temperature 97.3 F L 97.7 F Pulse Rate 69 86 Respiratory 20 18 Rate Blood Pressure 111/74 135/77 O2 Sat by Pulse 95 Oximetry (%) Laboratory Last Values WBC 4.4 K/mm3 (4.0-10.0) 10/11/19 09:45 RBC 3.59 M/mm3 (4.00-5.60) L 10/11/19 09:45 Hgb 12.0 GM/dL (11.7-16.9) 10/11/19 09:45 Hct 36.2 % (35.4-49) 10/11/19 09:45 MCV 100.8 fl (80-96) H 10/11/19 09:45 MCH 33.6 pg (25.7-33.7) 10/11/19 09:45 MCHC 33.3 g/dl (32.0-35.9) 10/11/19 09:45 RDW 13.1 % (11.9-15.9) 10/11/19 09:45 Plt Count 140 K/MM3 (134-434) 10/11/19 09:45 MPV 10.2 fl (7.5-11.1) 10/11/19 09:45 Sodium 134 mmol/L (136-145) L 10/11/19 09:45 Potassium 3.8 mmol/L (3.5-5.1) 10/11/19 09:45 Chloride 102 mmol/L (98-107) 10/11/19 09:45 Carbon Dioxide 25 mmol/L (21-32) 10/11/19 09:45 Anion Gap 8 MMOL/L (8-16) 10/11/19 09:45 BUN 11.0 mg/dL (7-18) 10/11/19 09:45 Creatinine 0.8 mg/dL (0.55-1.3) 10/11/19 09:45 Est GFR (CKD-EPI)AfAm 119.04 10/11/19 09:45 Est GFR (CKD-EPI)NonAf 102.71 10/11/19 09:45 Random Glucose 101 mg/dL (74-106) 10/11/19 09:45 Calcium 8.5 mg/dL (8.5-10.1) 10/11/19 09:45 Total Bilirubin 0.3 mg/dL (0.2-1) 10/11/19 09:45 AST 121 U/L (15-37) H 10/11/19 09:45 ALT 105 U/L (13-61) H 10/11/19 09:45 Alkaline Phosphatase 68 U/L (45-117) 10/11/19 09:45 Total Protein 7.4 g/dl (6.4-8.2) 10/11/19 09:45 Albumin 3.6 g/dl (3.4-5.0) 10/11/19 09:45 Syphilis Serology Non-reactive (NONREACTIVE) 10/11/19 09:45 COVID-19 ([facility]) Not detected (Not Detected) 10/11/19 11:25 HIV Ag/Ab Combo Qual Negative (NEGATIVE) 10/11/19 10:50 Labs noted. Assessment: 10/13/19 11:49 Patient was seen and examined at bedside. Alert and oriented x 3, in no acute respiratory distress. Full ROM, ambulatory without assistance. Withdrawal symptoms. Plan: Continue detox protocol.
[2019-10-13] MEDS: THIAMINE HCL 100 MG TABLET (FP) PO SCH (22:05)
[2019-10-13] MEDS: MELATONIN 5 MG TABLETS PO SCH (22:05)
[2019-10-14] MEDS ORDERED: chlordiazePOXIDE HCL 10 MG CAPSULE PO PRN
[2019-10-14] MEDS ORDERED: chlordiazePOXIDE HCL 10 MG CAPSULE PO SCH (05:00)
[2019-10-14] MEDS: hydrOXYzine PAMOATE 25 MG CAPSULE (FP) PO SCH ×5 (06:11→22:15)
[2019-10-14] MEDS: LORazepam 1 MG TABLET PO SCH ×4 (06:11→22:15)
[2019-10-14] MEDS: BACITRACIN/POLYMYXIN B SULFATE 15 GM TUBE TP SCH ×2 (10:43→22:18)
[2019-10-14] MEDS: PRENATAL VITAMINS W/ FOLIC ACID TABLET (FP) PO SCH (10:43)
--- NOTE | 2019-10-14 11:19 | PN ---
S CIWA - CIWA Score Nausea/Vomitin-No Nausea/No Vomiting Muscle Tremors: None Anxiety: 2 Agitation: 0-Normal Activity Paroxysmal Sweats: 3 Orientation: 0-Oriented Tacttile Disturbances: 0-None Auditory Disturbances: 0-None Visual Disturbances: 0-None Headache: 2-Mild CIWA-Ar Total Score: 7 BHS Progress Note (SOAP) Subjective: c/o headache, anxiety, and sweats. Objective: 10/14/19 11:14 Vital Signs 10/14/19 10/14/19 06:07 08:28 Temperature 98.2 F 97.8 F Pulse Rate 68 86 Respiratory 18 18 Rate Blood Pressure 124/72 120/67 O2 Sat by Pulse 97 Oximetry (%) Laboratory Last Values WBC 4.4 K/mm3 (4.0-10.0) 10/11/19 09:45 RBC 3.59 M/mm3 (4.00-5.60) L 10/11/19 09:45 Hgb 12.0 GM/dL (11.7-16.9) 10/11/19 09:45 Hct 36.2 % (35.4-49) 10/11/19 09:45 MCV 100.8 fl (80-96) H 10/11/19 09:45 MCH 33.6 pg (25.7-33.7) 10/11/19 09:45 MCHC 33.3 g/dl (32.0-35.9) 10/11/19 09:45 RDW 13.1 % (11.9-15.9) 10/11/19 09:45 Plt Count 140 K/MM3 (134-434) 10/11/19 09:45 MPV 10.2 fl (7.5-11.1) 10/11/19 09:45 Sodium 134 mmol/L (136-145) L 10/11/19 09:45 Potassium 3.8 mmol/L (3.5-5.1) 10/11/19 09:45 Chloride 102 mmol/L (98-107) 10/11/19 09:45 Carbon Dioxide 25 mmol/L (21-32) 10/11/19 09:45 Anion Gap 8 MMOL/L (8-16) 10/11/19 09:45 BUN 11.0 mg/dL (7-18) 10/11/19 09:45 Creatinine 0.8 mg/dL (0.55-1.3) 10/11/19 09:45 Est GFR (CKD-EPI)AfAm 119.04 10/11/19 09:45 Est GFR (CKD-EPI)NonAf 102.71 10/11/19 09:45 Random Glucose 101 mg/dL (74-106) 10/11/19 09:45 Calcium 8.5 mg/dL (8.5-10.1) 10/11/19 09:45 Total Bilirubin 0.3 mg/dL (0.2-1) 10/11/19 09:45 AST 121 U/L (15-37) H 10/11/19 09:45 ALT 105 U/L (13-61) H 10/11/19 09:45 Alkaline Phosphatase 68 U/L (45-117) 10/11/19 09:45 Total Protein 7.4 g/dl (6.4-8.2) 10/11/19 09:45 Albumin 3.6 g/dl (3.4-5.0) 10/11/19 09:45 Syphilis Serology Non-reactive (NONREACTIVE) 10/11/19 09:45 COVID-19 ([facility]) Not detected (Not Detected) 10/11/19 11:25 HIV Ag/Ab Combo Qual Negative (NEGATIVE) 10/11/19 10:50 Labs noted with elevated AST/ALT. Assessment: 10/14/19 11:17 AOX3 and in no acute respiratory. Full ROM, ambulating in the unit. Withdrawal symptoms. Elevated liver enzymes. 10/14/19 11:18 Plan: continue detox.
[2019-10-14] MEDS: METHOCARBAMOL 500 MG TABLET PO PRN (22:15)
[2019-10-14] MEDS: THIAMINE HCL 100 MG TABLET (FP) PO SCH (22:15)
[2019-10-14] MEDS: MELATONIN 5 MG TABLETS PO SCH (22:18)
[2019-10-15] MEDS ORDERED: LORazepam 0.5 MG TABLET PO PRN
[2019-10-15] MEDS ORDERED: chlordiazePOXIDE HCL 10 MG CAPSULE PO SCH (05:00)
[2019-10-15] MEDS: hydrOXYzine PAMOATE 25 MG CAPSULE (FP) PO SCH ×5 (06:40→22:25)
[2019-10-15] MEDS: LORazepam 0.5 MG TABLET PO SCH ×4 (06:40→22:26)
[2019-10-15] MEDS: PRENATAL VITAMINS W/ FOLIC ACID TABLET (FP) PO SCH (10:12)
[2019-10-15] MEDS: BACITRACIN/POLYMYXIN B SULFATE 15 GM TUBE TP SCH ×2 (10:12→23:16)
--- NOTE | 2019-10-15 12:00 | PN ---
S CIWA - CIWA Score Nausea/Vomitin-No Nausea/No Vomiting Muscle Tremors: None Anxiety: 2 Agitation: 0-Normal Activity Paroxysmal Sweats: 1-Minimal Palms Moist Orientation: 0-Oriented Tacttile Disturbances: 0-None Auditory Disturbances: 0-None Visual Disturbances: 0-None Headache: 0-None Present CIWA-Ar Total Score: 3 BHS Progress Note (SOAP) Subjective: c/o mild withdrawal symptoms. Objective: 10/15/19 11:57 Vital Signs 10/15/19 10/15/19 07:31 08:48 Temperature 98 F 98.2 F Pulse Rate 74 78 Respiratory 18 17 Rate Blood Pressure 117/81 108/60 O2 Sat by Pulse 98 99 Oximetry (%) Assessment: 10/15/19 11:58 AOX3, in no acute respiratory distress. Full ROM, ambulating in the unit. Mild Withdrawal symptoms. For d/c tomorrow. Plan: continue detox. D/C in AM.
[2019-10-15] MEDS: THIAMINE HCL 100 MG TABLET (FP) PO SCH (22:26)
[2019-10-15] MEDS: MELATONIN 5 MG TABLETS PO SCH (22:26)
[2019-10-16] MEDS ORDERED: chlordiazePOXIDE HCL 10 MG CAPSULE PO ONE (05:00)
[2019-10-16] MEDS ORDERED: LORazepam 0.5 MG TABLET PO ONE (05:00)
[2019-10-16] MEDS: hydrOXYzine PAMOATE 25 MG CAPSULE (FP) PO SCH ×2 (06:01→10:32)
[2019-10-16] MEDS: METHOCARBAMOL 500 MG TABLET PO PRN (06:01)
[2019-10-16 09:43] VITALS: BP 110/73; PULSE 83; TEMP 97.6
[2019-10-16] MEDS: BACITRACIN/POLYMYXIN B SULFATE 15 GM TUBE TP SCH (10:32)
[2019-10-16] MEDS: PRENATAL VITAMINS W/ FOLIC ACID TABLET (FP) PO SCH (10:32)
--- NOTE | 2019-10-16 11:41 | DS ---
[facility] Detox Discharge Summary Admission Date: 10/11/19 Discharge Date: 10/16/19 - History Present History: Alcohol Dependence, Cocaine Dependence Additional Comments: Pt is medically cleared and discharged to [facility] for continued management. Pt completed the detox protocol. Pt is encouraged to follow through with the rehab protocol which he verbalized understanding. Pt is AOX3, in no acute respiratory distress, Full ROM, and ambulatory. Pertinent Past History: h/o alcohol and cocaine use disorder. - Physical Exam Results Vital Signs: Vital Signs Temperature 97.6 F 10/16/19 08:43 Pulse Rate 83 10/16/19 08:43 Respiratory Rate 20 10/16/19 08:43 Blood Pressure 110/73 10/16/19 08:43 O2 Sat by Pulse Oximetry (%) 96 10/16/19 05:45 Vital Signs 10/16/19 10/16/19 05:45 08:43 Temperature 97.9 F 97.6 F Pulse Rate 44 L 83 Respiratory 18 20 Rate Blood Pressure 119/73 110/73 O2 Sat by Pulse 96 Oximetry (%) Laboratory Last Values WBC 4.4 K/mm3 (4.0-10.0) 10/11/19 09:45 RBC 3.59 M/mm3 (4.00-5.60) L 10/11/19 09:45 Hgb 12.0 GM/dL (11.7-16.9) 10/11/19 09:45 Hct 36.2 % (35.4-49) 10/11/19 09:45 MCV 100.8 fl (80-96) H 10/11/19 09:45 MCH 33.6 pg (25.7-33.7) 10/11/19 09:45 MCHC 33.3 g/dl (32.0-35.9) 10/11/19 09:45 RDW 13.1 % (11.9-15.9) 10/11/19 09:45 Plt Count 140 K/MM3 (134-434) 10/11/19 09:45 MPV 10.2 fl (7.5-11.1) 10/11/19 09:45 Sodium 134 mmol/L (136-145) L 10/11/19 09:45 Potassium 3.8 mmol/L (3.5-5.1) 10/11/19 09:45 Chloride 102 mmol/L (98-107) 10/11/19 09:45 Carbon Dioxide 25 mmol/L (21-32) 10/11/19 09:45 Anion Gap 8 MMOL/L (8-16) 10/11/19 09:45 BUN 11.0 mg/dL (7-18) 10/11/19 09:45 Creatinine 0.8 mg/dL (0.55-1.3) 10/11/19 09:45 Est GFR (CKD-EPI)AfAm 119.04 10/11/19 09:45 Est GFR (CKD-EPI)NonAf 102.71 10/11/19 09:45 Random Glucose 101 mg/dL (74-106) 10/11/19 09:45 Calcium 8.5 mg/dL (8.5-10.1) 10/11/19 09:45 Total Bilirubin 0.3 mg/dL (0.2-1) 10/11/19 09:45 AST 121 U/L (15-37) H 10/11/19 09:45 ALT 105 U/L (13-61) H 10/11/19 09:45 Alkaline Phosphatase 68 U/L (45-117) 10/11/19 09:45 Total Protein 7.4 g/dl (6.4-8.2) 10/11/19 09:45 Albumin 3.6 g/dl (3.4-5.0) 10/11/19 09:45 Syphilis Serology Non-reactive (NONREACTIVE) 10/11/19 09:45 COVID-19 ([facility]) Not detected (Not Detected) 10/11/19 11:25 HIV Ag/Ab Combo Qual Negative (NEGATIVE) 10/11/19 10:50 Labs noted. Pertinent Admission Physical Exam Findings: withdrawal symptoms. - Treatment Hospital Course: Detox Protocol Followed, Detoxed Safely, Responded well, Discharged Condition Good, Rehab Referral Accepted Patient has Accepted a Rehab Referral to: [facility]. - Medication Discharge Medications: Ambulatory Orders NK [No Known Home Medication] 10/11/19 - Diagnosis (1) Alcohol dependence with uncomplicated withdrawal Status: Acute (2) Cocaine use disorder Status: Chronic - AMA Did Patient Leave Against Medical Advice: No
== END 2019-10-16 11:33 | disposition other institution (70) | DRG 774 ==
LOC: YASAS 08:55 → Y6N 09:53
PROVIDERS: ADMIT Allergy & Immunology; ATTEND Allergy & Immunology
PROC: HZ2ZZZZ Detoxification Services for Substance Abuse Treatment (ICD-10-PCS; principal; 2019-10-11)
DX: F10.230 Alcohol dependence with withdrawal, uncomplicated (principal); F14.20 Cocaine dependence, uncomplicated; F17.211 Nicotine dependence, cigarettes, in remission; F19.24 Other psychoactive substance dependence with psychoactive substance-induced mood disorder; F41.9 Anxiety disorder, unspecified; F32.9 Major depressive disorder, single episode, unspecified; R74.0 Nonspecific elevation of levels of transaminase and lactic acid dehydrogenase [LDH]; R60.0 Localized edema; R76.11 Nonspecific reaction to tuberculin skin test without active tuberculosis; Z87.81 Personal history of (healed) traumatic fracture; Z98.890 Other specified postprocedural states; Z56.0 Unemployment, unspecified; Z59.0 Homelessness
CPT/HCPCS: 36415; 71046-TC-FY; 80053; 85027; 86780; 87389; U0003

== ENCOUNTER 2019-10-16 11:37 | Inpatient (IN) | payer OTHER ==
[2019-10-16] MEDS ORDERED: guaiFENesin 200 MG/10 ML 10 ML UNIT-DOSE CUPS PO PRN (12:20)
[2019-10-16] MEDS ORDERED: MENTHOL/PHENOL 1 EACH UD MM PRN (12:20)
[2019-10-16] MEDS ORDERED: LOPERAMIDE HCL 2 MG CAPSULE PO PRN (12:20)
[2019-10-16] MEDS ORDERED: ACETAMINOPHEN 325 MG TABLET (FP) PO PRN (12:20)
[2019-10-16] MEDS ORDERED: MAGNESIUM HYDROX 2400MG/30ML ORAL SUSPENSION 30 ML CUP PO PRN (12:20)
[2019-10-16] MEDS ORDERED: IBUPROFEN 400 MG TABLET (FP) PO PRN (12:20)
[2019-10-16] MEDS ORDERED: MAG HYDROX/AL HYDROX/SIMETH 30 ML UNIT-DOSE CUP PO PRN (12:20)
[2019-10-16] MEDS ORDERED: P-EPHED 60MG/TRIPROLIDI 2.5MG TABLET PO PRN (12:20)
[2019-10-16] MEDS ORDERED: MAGNESIUM CITRATE 300 ML BOTTLE PO PRN (12:20)
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
[2019-10-16] MEDS: hydrOXYzine PAMOATE 25 MG CAPSULE (FP) PO PRN (16:36)
[2019-10-16] MEDS: THIAMINE HCL 100 MG TABLET (FP) PO SCH (21:04)
[2019-10-16] MEDS: busPIRone HCL 10 MG TABLET (FP) PO SCH (21:04)
[2019-10-16] MEDS: MELATONIN 5 MG TABLETS PO SCH (21:50)
[2019-10-17] MEDS: PRENATAL VITAMINS W/ FOLIC ACID TABLET (FP) PO SCH (10:11)
[2019-10-17] MEDS: busPIRone HCL 10 MG TABLET (FP) PO SCH ×2 (10:11→21:57)
[2019-10-17] MEDS ORDERED: PT OWN MED DRAWER 7, Y5N ONE (15:59)
[2019-10-17] MEDS: hydrOXYzine PAMOATE 25 MG CAPSULE (FP) PO PRN (21:57)
[2019-10-17] MEDS: THIAMINE HCL 100 MG TABLET (FP) PO SCH (21:57)
[2019-10-17] MEDS: MELATONIN 5 MG TABLETS PO SCH (21:58)
[2019-10-18] MEDS: hydrOXYzine PAMOATE 25 MG CAPSULE (FP) PO PRN (01:34)
--- NOTE | 2019-10-18 08:40 | PN ---
[facility] Progress Note Note: Patient reports sleeping poorly despite taking Melatonin 5 mg/hs. Will order Belsomra 10 mg/hs prn. Hypnotic properties and adverse-effects discussed with patient and he understood them
[2019-10-18] MEDS: busPIRone HCL 10 MG TABLET (FP) PO SCH ×2 (09:41→21:50)
[2019-10-18] MEDS: PRENATAL VITAMINS W/ FOLIC ACID TABLET (FP) PO SCH (09:41)
[2019-10-18] MEDS: THIAMINE HCL 100 MG TABLET (FP) PO SCH (21:50)
[2019-10-18] MEDS: SUVOREXANT 10 MG TABLET PO PRN (22:02)
[2019-10-19] MEDS: busPIRone HCL 10 MG TABLET (FP) PO SCH ×2 (10:30→21:11)
[2019-10-19] MEDS: PRENATAL VITAMINS W/ FOLIC ACID TABLET (FP) PO SCH (10:30)
[2019-10-19] MEDS: SUVOREXANT 10 MG TABLET PO PRN (21:11)
[2019-10-19] MEDS: THIAMINE HCL 100 MG TABLET (FP) PO SCH (21:11)
[2019-10-20] MEDS: busPIRone HCL 10 MG TABLET (FP) PO SCH ×2 (09:25→21:37)
[2019-10-20] MEDS: PRENATAL VITAMINS W/ FOLIC ACID TABLET (FP) PO SCH (09:25)
[2019-10-20] MEDS: THIAMINE HCL 100 MG TABLET (FP) PO SCH (21:37)
[2019-10-20] MEDS: SUVOREXANT 10 MG TABLET PO PRN (21:38)
[2019-10-21] MEDS: busPIRone HCL 10 MG TABLET (FP) PO SCH ×3 (10:25→21:08)
[2019-10-21] MEDS: PRENATAL VITAMINS W/ FOLIC ACID TABLET (FP) PO SCH (10:25)
[2019-10-21] MEDS: SUVOREXANT 10 MG TABLET PO PRN (21:08)
[2019-10-21] MEDS: THIAMINE HCL 100 MG TABLET (FP) PO SCH (21:08)
[2019-10-21] MEDS ORDERED: SUVOREXANT 10 MG TABLET PO PRN (22:00)
[2019-10-22] MEDS: busPIRone HCL 10 MG TABLET (FP) PO SCH ×2 (10:29→21:39)
[2019-10-22] MEDS: PRENATAL VITAMINS W/ FOLIC ACID TABLET (FP) PO SCH (10:29)
[2019-10-22] MEDS: THIAMINE HCL 100 MG TABLET (FP) PO SCH (21:39)
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
[2019-10-23] MEDS: PRENATAL VITAMINS W/ FOLIC ACID TABLET (FP) PO SCH (11:00)
[2019-10-23] MEDS: busPIRone HCL 10 MG TABLET (FP) PO SCH ×2 (11:01→21:48)
--- NOTE | 2019-10-23 13:08 | PN ---
[facility] Progress Note Note: Patient is scheduled for discharged tomorrow. Script for 30 days supply of Buspar 10 mg/bid will be electronically transmitted to [facility], [address], [place] [address]
[2019-10-23] MEDS: THIAMINE HCL 100 MG TABLET (FP) PO SCH (21:48)
[2019-10-24 06:43] VITALS: BP 113/71; PULSE 73; TEMP 98.2
[2019-10-24] MEDS: busPIRone HCL 10 MG TABLET (FP) PO SCH (09:55)
[2019-10-24] MEDS: PRENATAL VITAMINS W/ FOLIC ACID TABLET (FP) PO SCH (09:55)
== END 2019-10-24 09:41 | disposition home or self-care (01) | DRG 772 ==
LOC: YASAS 11:37 → Y3W 11:38
PROVIDERS: ADMIT Allergy & Immunology; ATTEND Allergy & Immunology
PROC: HZ42ZZZ Group Counseling for Substance Abuse Treatment, Cognitive-Behavioral (ICD-10-PCS; principal; 2019-10-16)
DX: F10.20 Alcohol dependence, uncomplicated (principal); F14.20 Cocaine dependence, uncomplicated; F19.280 Other psychoactive substance dependence with psychoactive substance-induced anxiety disorder; F32.9 Major depressive disorder, single episode, unspecified; F41.8 Other specified anxiety disorders; R76.11 Nonspecific reaction to tuberculin skin test without active tuberculosis; Z56.0 Unemployment, unspecified; Z59.0 Homelessness

== ENCOUNTER 2020-02-11 08:31 | Inpatient (IN) | payer OTHER ==
[2020-02-11] MEDS ORDERED: ACETAMINOPHEN 325 MG TABLET (FP) PO PRN ×2 (09:55)
[2020-02-11] MEDS ORDERED: ONDANSETRON *ODT* 4 MG TABLET SL PRN (09:55)
[2020-02-11] MEDS ORDERED: MAGNESIUM CITRATE 300 ML BOTTLE PO PRN (09:55)
[2020-02-11] MEDS ORDERED: METHOCARBAMOL 500 MG TABLET PO PRN (09:55)
[2020-02-11] MEDS ORDERED: BISMUTH SUBSALICYLATE 524 MG/30 ML UD PO PRN (09:55)
[2020-02-11] MEDS ORDERED: MAG HYDROX/AL HYDROX/SIMETH 30 ML UNIT-DOSE CUP PO PRN (09:55)
[2020-02-11] MEDS ORDERED: NICOTINE POLACRILEX 2 MG GUM BUC PRN (09:55)
[2020-02-11] MEDS ORDERED: MAGNESIUM HYDROX 2400MG/30ML ORAL SUSPENSION 30 ML CUP PO PRN (09:55)
[2020-02-11] MEDS ORDERED: LORazepam 1 MG TABLET PO PRN (09:55)
[2020-02-11] MEDS ORDERED: MENTHOL/PHENOL 1 EACH UD MM PRN (09:55)
[2020-02-11 10:06] VITALS: BMI 31.0
[2020-02-11] MEDS: LORazepam 2 MG TABLET PO SCH ×3 (11:01→22:42)
[2020-02-11] MEDS: hydrOXYzine PAMOATE 25 MG CAPSULE (FP) PO SCH ×4 (11:02→22:41)
[2020-02-11] MEDS ORDERED: hydrOXYzine PAMOATE 25 MG CAPSULE (FP) PO ONE (11:03)
[2020-02-11] MEDS ORDERED: LORazepam 2 MG TABLET ONE (11:03)
[2020-02-11] MEDS: PRENATAL VITAMINS W/ FOLIC ACID TABLET (FP) PO SCH (14:49)
[2020-02-11 15:02] LABS: HEMATOCRIT 39.5 % (35.4-49); HEMOGLOBIN 12.8 GM/dL (11.7-16.9); MCH 31.1 pg (25.7-33.7); MCHC 32.4 g/dl (32.0-35.9); MEAN CELL VOLUME 96.1 fl (80-96); MEAN PLT VOLUME 9.7 fl (7.5-11.1); PLATELET COUNT 273 K/MM3 (134-434); RBC 4.11 M/mm3 (4.00-5.60); WHITE BLOOD COUNT 10.8 K/mm3 (4.0-10.0)
[2020-02-11 15:09] LABS: POTASSIUM 3.7 mmol/L (3.5-5.1)
[2020-02-11 15:10] LABS: CALCIUM 9.3 mg/dL (8.5-10.1)
[2020-02-11 15:11] LABS: ALBUMIN 4.1 g/dl (3.4-5.0); BLOOD UREA NITROGEN 12.6 mg/dL (7-18)
[2020-02-11 15:14] LABS: CREATININE 1.1 mg/dL (0.55-1.3)
[2020-02-11 15:16] LABS: BILIRUBIN,TOTAL 0.5 mg/dL (0.2-1); TOT PROT 8.4 g/dl (6.4-8.2)
[2020-02-11] MEDS: busPIRone HCL 10 MG TABLET (FP) PO SCH (22:41)
[2020-02-11] MEDS: MELATONIN 5 MG TABLETS PO SCH (22:42)
[2020-02-11] MEDS: THIAMINE HCL 100 MG TABLET (FP) PO SCH (22:42)
[2020-02-12] MEDS: hydrOXYzine PAMOATE 25 MG CAPSULE (FP) PO SCH ×5 (05:27→22:23)
[2020-02-12] MEDS: LORazepam 2 MG TABLET PO SCH ×4 (05:27→22:23)
[2020-02-12] MEDS: busPIRone HCL 10 MG TABLET (FP) PO SCH ×2 (10:41→22:23)
[2020-02-12] MEDS: PRENATAL VITAMINS W/ FOLIC ACID TABLET (FP) PO SCH (10:41)
[2020-02-12] MEDS: IBUPROFEN 400 MG TABLET (FP) PO PRN (19:42)
[2020-02-12] MEDS: THIAMINE HCL 100 MG TABLET (FP) PO SCH (22:23)
[2020-02-12] MEDS: MELATONIN 5 MG TABLETS PO SCH (22:23)
[2020-02-13] MEDS: hydrOXYzine PAMOATE 25 MG CAPSULE (FP) PO SCH ×5 (05:15→22:10)
[2020-02-13] MEDS: LORazepam 1 MG TABLET PO SCH ×4 (05:15→22:10)
[2020-02-13] MEDS: busPIRone HCL 10 MG TABLET (FP) PO SCH ×2 (10:07→22:10)
[2020-02-13] MEDS: PRENATAL VITAMINS W/ FOLIC ACID TABLET (FP) PO SCH (10:07)
[2020-02-13] MEDS ORDERED: CEPHALEXIN MONOHYDRATE 500 MG CAPSULE (UD) PO ONE (13:45)
[2020-02-13] MEDS: CLINDAMYCIN PHOSPHATE 1% TOPICAL SOLUTION 30 ML BOTTLE TP SCH ×2 (14:38→22:10)
[2020-02-13] MEDS: IBUPROFEN 400 MG TABLET (FP) PO PRN (16:44)
[2020-02-13] MEDS: CEPHALEXIN MONOHYDRATE 500 MG CAPSULE (UD) PO SCH ×2 (17:43→23:00)
[2020-02-13] MEDS: THIAMINE HCL 100 MG TABLET (FP) PO SCH (22:10)
[2020-02-13] MEDS: MELATONIN 5 MG TABLETS PO SCH (22:10)
[2020-02-14] MEDS ORDERED: LORazepam 0.5 MG TABLET PO PRN
[2020-02-14] MEDS: hydrOXYzine PAMOATE 25 MG CAPSULE (FP) PO SCH ×5 (05:15→22:04)
[2020-02-14] MEDS: LORazepam 0.5 MG TABLET PO SCH ×4 (05:15→22:04)
[2020-02-14] MEDS: CEPHALEXIN MONOHYDRATE 500 MG CAPSULE (UD) PO SCH ×3 (05:15→17:04)
[2020-02-14] MEDS: IBUPROFEN 400 MG TABLET (FP) PO PRN ×2 (07:09→15:31)
[2020-02-14] MEDS: busPIRone HCL 10 MG TABLET (FP) PO SCH ×2 (10:18→22:03)
[2020-02-14] MEDS: PRENATAL VITAMINS W/ FOLIC ACID TABLET (FP) PO SCH (10:19)
[2020-02-14] MEDS: CLINDAMYCIN PHOSPHATE 1% TOPICAL SOLUTION 30 ML BOTTLE TP SCH ×2 (10:19→22:24)
[2020-02-14] MEDS: THIAMINE HCL 100 MG TABLET (FP) PO SCH (22:03)
[2020-02-14] MEDS: MELATONIN 5 MG TABLETS PO SCH (22:25)
[2020-02-15] MEDS: CEPHALEXIN MONOHYDRATE 500 MG CAPSULE (UD) PO SCH ×5 (00:02→23:07)
[2020-02-15] MEDS ORDERED: LORazepam 0.5 MG TABLET PO ONE (05:00)
[2020-02-15] MEDS: hydrOXYzine PAMOATE 25 MG CAPSULE (FP) PO SCH ×5 (05:13→22:01)
[2020-02-15] MEDS: IBUPROFEN 400 MG TABLET (FP) PO PRN ×2 (05:14→15:39)
[2020-02-15] MEDS: CLINDAMYCIN PHOSPHATE 1% TOPICAL SOLUTION 30 ML BOTTLE TP SCH ×2 (09:52→22:03)
[2020-02-15] MEDS: busPIRone HCL 10 MG TABLET (FP) PO SCH ×2 (09:52→22:01)
[2020-02-15] MEDS: PRENATAL VITAMINS W/ FOLIC ACID TABLET (FP) PO SCH (09:52)
[2020-02-15] MEDS ORDERED: MASKS NR ONE (12:33)
[2020-02-15] MEDS: THIAMINE HCL 100 MG TABLET (FP) PO SCH (22:01)
[2020-02-15] MEDS: MELATONIN 5 MG TABLETS PO SCH (22:01)
[2020-02-16] MEDS: hydrOXYzine PAMOATE 25 MG CAPSULE (FP) PO SCH ×2 (05:11→10:06)
[2020-02-16] MEDS: CEPHALEXIN MONOHYDRATE 500 MG CAPSULE (UD) PO SCH ×2 (05:12→12:47)
[2020-02-16 09:06] VITALS: BP 118/63; PULSE 72; TEMP 98.6
[2020-02-16] MEDS: CLINDAMYCIN PHOSPHATE 1% TOPICAL SOLUTION 30 ML BOTTLE TP SCH (10:06)
[2020-02-16] MEDS: PRENATAL VITAMINS W/ FOLIC ACID TABLET (FP) PO SCH (10:06)
[2020-02-16] MEDS: busPIRone HCL 10 MG TABLET (FP) PO SCH (10:06)
== END 2020-02-16 12:51 | disposition other institution (70) | DRG 774 ==
LOC: YASAS 08:31 → Y3N 12:26
PROVIDERS: ADMIT Allergy & Immunology; ATTEND Allergy & Immunology
PROC: HZ2ZZZZ Detoxification Services for Substance Abuse Treatment (ICD-10-PCS; principal; 2020-02-11)
DX: F10.230 Alcohol dependence with withdrawal, uncomplicated (principal); F10.220 Alcohol dependence with intoxication, uncomplicated; F14.20 Cocaine dependence, uncomplicated; F15.20 Other stimulant dependence, uncomplicated; F19.24 Other psychoactive substance dependence with psychoactive substance-induced mood disorder; F19.280 Other psychoactive substance dependence with psychoactive substance-induced anxiety disorder; F19.282 Other psychoactive substance dependence with psychoactive substance-induced sleep disorder; F32.4 Major depressive disorder, single episode, in partial remission; F41.1 Generalized anxiety disorder; L73.2 Hidradenitis suppurativa; R94.5 Abnormal results of liver function studies; Z87.891 Personal history of nicotine dependence; Z86.11 Personal history of tuberculosis; Z56.0 Unemployment, unspecified
CPT/HCPCS: 36415; 80053; 85027; 86780; C9803; U0003

== ENCOUNTER 2020-02-16 12:57 | Inpatient (IN) | payer OTHER ==
[~2020-02-16 12:57] MED LIST: ACETAMINOPHEN 325 MG TABLET (FP) PO PRN; LOPERAMIDE HCL 2 MG CAPSULE PO PRN; MAG HYDROX/AL HYDROX/SIMETH 30 ML UNIT-DOSE CUP PO PRN; MAGNESIUM CITRATE 300 ML BOTTLE PO PRN; MAGNESIUM HYDROX 2400MG/30ML ORAL SUSPENSION 30 ML CUP PO PRN; NICOTINE POLACRILEX 2 MG GUM BUC PRN; P-EPHED 60MG/TRIPROLIDI 2.5MG TABLET PO PRN; guaiFENesin 200 MG/10 ML 10 ML UNIT-DOSE CUPS PO PRN
[2020-02-16] MEDS: CEPHALEXIN MONOHYDRATE 500 MG CAPSULE (UD) PO SCH (18:16)
[2020-02-16] MEDS: CLINDAMYCIN PHOSPHATE 1% TOPICAL SOLUTION 30 ML BOTTLE TP SCH (22:00)
[2020-02-16] MEDS: THIAMINE HCL 100 MG TABLET (FP) PO SCH (22:02)
[2020-02-16] MEDS: MELATONIN 5 MG TABLETS PO SCH (22:02)
[2020-02-17] MEDS: CEPHALEXIN MONOHYDRATE 500 MG CAPSULE (UD) PO SCH ×5 (01:01→23:27)
[2020-02-17] MEDS: IBUPROFEN 400 MG TABLET (FP) PO PRN (09:00)
[2020-02-17] MEDS: CLINDAMYCIN PHOSPHATE 1% TOPICAL SOLUTION 30 ML BOTTLE TP SCH ×2 (09:47→21:42)
[2020-02-17] MEDS: PRENATAL VITAMINS W/ FOLIC ACID TABLET (FP) PO SCH (09:47)
[2020-02-17] MEDS: GABAPENTIN 300 MG CAPSULE PO SCH (21:41)
[2020-02-17] MEDS: THIAMINE HCL 100 MG TABLET (FP) PO SCH (21:41)
[2020-02-17] MEDS: MELATONIN 5 MG TABLETS PO SCH (21:41)
[2020-02-18] MEDS: GABAPENTIN 300 MG CAPSULE PO SCH ×3 (06:49→21:02)
[2020-02-18] MEDS: CEPHALEXIN MONOHYDRATE 500 MG CAPSULE (UD) PO SCH ×3 (06:50→17:34)
[2020-02-18] MEDS: PRENATAL VITAMINS W/ FOLIC ACID TABLET (FP) PO SCH (10:08)
[2020-02-18] MEDS: CLINDAMYCIN PHOSPHATE 1% TOPICAL SOLUTION 30 ML BOTTLE TP SCH ×2 (10:08→21:01)
[2020-02-18] MEDS: IBUPROFEN 400 MG TABLET (FP) PO PRN (10:09)
[2020-02-18] MEDS: THIAMINE HCL 100 MG TABLET (FP) PO SCH (21:02)
[2020-02-18] MEDS: MELATONIN 5 MG TABLETS PO SCH (21:03)
[2020-02-19] MEDS: CEPHALEXIN MONOHYDRATE 500 MG CAPSULE (UD) PO SCH ×5 (00:10→23:42)
[2020-02-19] MEDS: GABAPENTIN 300 MG CAPSULE PO SCH ×3 (06:51→21:35)
[2020-02-19] MEDS: PRENATAL VITAMINS W/ FOLIC ACID TABLET (FP) PO SCH (10:00)
[2020-02-19] MEDS: CLINDAMYCIN PHOSPHATE 1% TOPICAL SOLUTION 30 ML BOTTLE TP SCH ×2 (10:01→21:36)
[2020-02-19] MEDS: MELATONIN 5 MG TABLETS PO SCH (21:35)
[2020-02-19] MEDS: THIAMINE HCL 100 MG TABLET (FP) PO SCH (21:35)
[2020-02-20] MEDS: GABAPENTIN 300 MG CAPSULE PO SCH ×3 (06:07→21:08)
[2020-02-20] MEDS: CEPHALEXIN MONOHYDRATE 500 MG CAPSULE (UD) PO SCH ×3 (06:07→18:04)
[2020-02-20] MEDS: PRENATAL VITAMINS W/ FOLIC ACID TABLET (FP) PO SCH (10:19)
[2020-02-20] MEDS: CLINDAMYCIN PHOSPHATE 1% TOPICAL SOLUTION 30 ML BOTTLE TP SCH ×2 (10:20→21:09)
[2020-02-20] MEDS: THIAMINE HCL 100 MG TABLET (FP) PO SCH (21:08)
[2020-02-20] MEDS: MELATONIN 5 MG TABLETS PO SCH (21:09)
[2020-02-21] MEDS: GABAPENTIN 300 MG CAPSULE PO SCH ×3 (06:46→21:36)
[2020-02-21] MEDS: PRENATAL VITAMINS W/ FOLIC ACID TABLET (FP) PO SCH (10:11)
[2020-02-21] MEDS: CLINDAMYCIN PHOSPHATE 1% TOPICAL SOLUTION 30 ML BOTTLE TP SCH ×2 (10:12→21:36)
[2020-02-21] MEDS: MELATONIN 5 MG TABLETS PO SCH (21:36)
[2020-02-21] MEDS: THIAMINE HCL 100 MG TABLET (FP) PO SCH (21:36)
[2020-02-22] MEDS: GABAPENTIN 300 MG CAPSULE PO SCH ×3 (06:31→22:07)
[2020-02-22] MEDS: PRENATAL VITAMINS W/ FOLIC ACID TABLET (FP) PO SCH (09:43)
[2020-02-22] MEDS: CLINDAMYCIN PHOSPHATE 1% TOPICAL SOLUTION 30 ML BOTTLE TP SCH ×2 (09:43→22:07)
[2020-02-22] MEDS: THIAMINE HCL 100 MG TABLET (FP) PO SCH (22:07)
[2020-02-22] MEDS: MELATONIN 5 MG TABLETS PO SCH (22:08)
[2020-02-23] MEDS: GABAPENTIN 300 MG CAPSULE PO SCH ×3 (06:49→22:19)
[2020-02-23] MEDS: PRENATAL VITAMINS W/ FOLIC ACID TABLET (FP) PO SCH (09:47)
[2020-02-23] MEDS: CLINDAMYCIN PHOSPHATE 1% TOPICAL SOLUTION 30 ML BOTTLE TP SCH ×2 (09:48→22:20)
[2020-02-23] MEDS: THIAMINE HCL 100 MG TABLET (FP) PO SCH (22:19)
[2020-02-23] MEDS: MELATONIN 5 MG TABLETS PO SCH (22:20)
[2020-02-24] MEDS: IBUPROFEN 400 MG TABLET (FP) PO PRN ×2 (06:19→12:37)
[2020-02-24] MEDS: GABAPENTIN 300 MG CAPSULE PO SCH ×3 (06:20→21:19)
[2020-02-24] MEDS: PRENATAL VITAMINS W/ FOLIC ACID TABLET (FP) PO SCH (10:08)
[2020-02-24] MEDS: CLINDAMYCIN PHOSPHATE 1% TOPICAL SOLUTION 30 ML BOTTLE TP SCH ×2 (10:08→21:20)
[2020-02-24] MEDS ORDERED: LIDOCAINE VISCOUS 2% ORAL/TOP 20 ML UNIT-DOSE CUP MM PRN (10:12)
[2020-02-24] MEDS: MELATONIN 5 MG TABLETS PO SCH (21:19)
[2020-02-24] MEDS: THIAMINE HCL 100 MG TABLET (FP) PO SCH (21:19)
[2020-02-25] MEDS: GABAPENTIN 300 MG CAPSULE PO SCH (06:17)
[2020-02-25 06:52] VITALS: BP 144/88; PULSE 76; TEMP 97.5
== END 2020-02-25 08:35 | disposition home or self-care (01) | DRG 772 ==
LOC: YASAS 12:57 → Y5N 12:58
PROVIDERS: ADMIT Allergy & Immunology; ATTEND Allergy & Immunology
PROC: HZ42ZZZ Group Counseling for Substance Abuse Treatment, Cognitive-Behavioral (ICD-10-PCS; principal; 2020-02-16)
DX: F10.20 Alcohol dependence, uncomplicated (principal); F14.20 Cocaine dependence, uncomplicated; M79.605 Pain in left leg; M79.2 Neuralgia and neuritis, unspecified; K08.89 Other specified disorders of teeth and supporting structures; Z87.2 Personal history of diseases of the skin and subcutaneous tissue; Z87.891 Personal history of nicotine dependence; Z56.0 Unemployment, unspecified